=== PATIENT | female | born 1955 | race Caucasian/White ===

== ENCOUNTER 2017-10-04 20:32 | Inpatient (IN) | payer OTHER ==
[~2017-10-04] VITALS: Ht 162.6 cm; Wt 115.6 kg
[2017-10-04] MEDS ORDERED: ACETAMINOPHEN 500 MG TAB PO STA (20:53)
--- NOTE | 2017-10-04 21:15 | DIAGNOSTIC IMAGING REPORT ---
L ANKLE MIN 3 VIEWS ROUTINE CLINICAL HISTORY: Ankle injury trauma. Pain. COMPARISON: None. DISCUSSION: Mildly displaced bimalleolar fracture left ankle. Considerable surrounding soft tissue edema. Mild disruption of ankle mortise. Subtalar joint is intact. IMPRESSION: Mildly displaced bimalleolar fracture left ankle. Considerable soft tissue edema. The above report was generated using voice recognition software. It may contain grammatical, syntax or spelling errors. Electronically signed by: Arpan Waddell M.D. 10/04/2017 9:14 PM Dictated Date/Time: 10/04/2017 9:13 PM
[2017-10-04] MEDS ORDERED: MELO7.5T5 PO (22:05)
[2017-10-04] MEDS ORDERED: DTRSR/2 PO (22:05)
[2017-10-04] MEDS ORDERED: GLC/500 PO (22:05)
[2017-10-04] MEDS ORDERED: MONT1TAB3 PO (22:05)
[2017-10-04] MEDS ORDERED: FEXO1TAB49 PO (22:05)
[2017-10-04] MEDS ORDERED: MULT-240 PO (22:05)
[2017-10-04] MEDS ORDERED: ASPI81TA28 PO (22:05)
[2017-10-04] MEDS ORDERED: NMN10 PO (22:05)
[2017-10-04] MEDS ORDERED: MELA1TAB49 PO (22:05)
[2017-10-04] MEDS ORDERED: FLVHFA110 INH (22:05)
[2017-10-04] MEDS ORDERED: POTA1CAP2 PO (22:05)
[2017-10-04] MEDS ORDERED: GALA12TA PO (22:05)
[2017-10-04] MEDS ORDERED: EFFSR75 PO (22:05)
[2017-10-04] MEDS ORDERED: LEVO112T4 PO (22:05)
[2017-10-04] MEDS ORDERED: PROP10TA7 PO ×2 (22:05)
[2017-10-04] MEDS ORDERED: OXYCODONE HCL IR 5 MG TAB (IMMEDIATE RELEASE) PO STA (22:20)
--- NOTE | 2017-10-04 23:43 | EMERGENCY ROOM VISIT NOTE ---
ED Visit Note First contact with patient: 20:50 CHIEF COMPLAINT: Left ankle injury HISTORY OF PRESENT ILLNESS: This 62-year-old female patient resents the ER via BLS with chief complaint of left ankle injury. The patient states that she slipped on the hallway floor and fell down injuring her left ankle. She was unable to get up. Her son found her and called EMS to bring her to the ER. The patient denies striking her head on the floor or any head injury she denies any loss of consciousness. The patient denies any other injury. REVIEW OF SYSTEMS: 6 system review was performed and was negative unless stated otherwise in history of present illness. PMH: No prior significant ankle injury. Obesity, diabetes, hypertension, COPD , Alzheimer's dementia, kidney stones, cholecystectomy SOCIAL HISTORY: Patient lives with her son. She denies any tobacco or alcohol use. PHYSICAL EXAM: Vital Signs: Were reviewed reviewed Nurse's notes. GENERAL: Morbidly obese 62-year-old white female appears in no acute distress. MENTAL STATUS: Alert, oriented, and cooperative. She answers questions appropriately. LUNGS: Clear to auscultation without wheezes rales or rhonchi. CARDIAC: Regular rate and rhythm without murmur. ABDOMEN: Positive bowel sounds all 4 quadrants. Protuberant unable to evaluate for organomegaly or masses. LOWER LEGS: No cyanosis or pitting edema noted. LEFT ANKLE: The ankle is swollen and tender over the lateral aspect but the skin is intact and there is no ligamentous instability. There is no deformity. The foot and toes are warm and well-perfused. Sensation to pain and light touch is intact. EMERGENCY DEPARTMENT COURSE the patient was evaluated. The patient was given Tylenol 1 g p.o. for pain. X-ray of the left ankle was or interpreted by the radiologist and myself. DIAGNOSTICS:L ANKLE MIN 3 VIEWS ROUTINE CLINICAL HISTORY: Ankle injury trauma. Pain. COMPARISON: None. DISCUSSION: Mildly displaced bimalleolar fracture left ankle. Considerable surrounding soft tissue edema. Mild disruption of ankle mortise. Subtalar joint is intact. IMPRESSION: Mildly displaced bimalleolar fracture left ankle. Considerable soft tissue edema. The above report was generated using voice recognition software. It may contain grammatical, syntax or spelling errors. Electronically signed by: Arpan Waddell M.D. The patient was informed of the findings. The patient was given OxyIR 5 mg p.o. for pain. The patient was placed in Ortho-Glass splint. Post-splinting the patient was neurovascularly intact. The patient stated that she cannot walk with crutches or a walker. Family members also stated that she is even wobbly with a cane. They do not feel that she can go home. She does not have a wheelchair at home. They do not have money to purchase a wheelchair. I contacted Dr. Sierra about the patient. He stated that he would not be doing surgery on her until probably next week. He stated he would see her tomorrow in clinic. He asked to see if there were any other options that I could find for the patient in the interim. I spoke with the medical case manager. The medical case manager spoke with [facility] about the patient. The physician there stated that they would not take the patient until after the surgery. They would not take her preop. I then consulted the hospitalist to see if they would admit the patient and consult Dr. Sierra in the morning. The hospitalist was willing to admit the patient. Please see his note for admission. DIAGNOSIS: Bimalleolar fracture left ankle. Inability to ambulate. TREATMENT PLAN: Admission by hospitalist this evening and consult Dr. Sierra tomorrow. Current/Historical Medications Scheduled Aspirin (Aspirin Ec), 81 MG PO DAILY Fexofenadine Hcl (Esperanza Allergy), 180 MG PO DAILY Fluticasone Propionate (Flovent Hfa), 2 PUFFS INH BID Galantamine Hydrobromide (Razadyne), 12 MG PO BIDM Levothyroxine Sodium (Levothyroxine Sodium), 112 MCG PO DAILY Melatonin (Melatonin), 3 MG PO HS Memantine (Namenda), 10 MG PO BID Metformin Hcl (Glucophage), 500 MG PO DAILY Montelukast Sodium (Singulair), 10 MG PO QPM Multiple Vitamins W/ Minerals (Womens One Daily), 1 TAB PO DAILY Potassium Chloride (Potassium Chloride Er), 20 MEQ PO DAILY Propranolol (Inderal), 20 MG PO QAM Propranolol (Inderal), 10 MG PO QPM Tolterodine Tartrate (Detrol LA), 2 MG PO BID Venlafaxine Hcl (Effexor Extended Rel), 75 MG PO DAILY Scheduled PRN Meloxicam (Mobic), 7.5 MG PO DAILY PRN for Pain Allergies Coded Allergies: No Known Allergies (Unverified , 10/04/17) Vital Signs Date Time Temp Pulse Resp B/P (MAP) Pulse Ox O2 Delivery O2 Flow Rate FiO2 10/04/17 23:11 69 140/69 97 Room Air 10/04/17 20:39 36.7 62 18 162/75 97 Room Air Laboratory Results Test 10/04/17 23:25 10/04/17 23:33 Medications Administered Medications (Trade) Dose Ordered Sig/Ronak Route Start Time Stop Time Status Last Admin Dose Admin Acetaminophen (Tylenol Tab) 1,000 mg NOW STAT PO 10/04/17 20:53 10/04/17 20:55 DC 10/04/17 21:00 1,000 MG Oxycodone HCl (Roxicodone Immediate Rel Tab) 5 mg NOW STAT PO 10/04/17 22:20 10/04/17 22:21 DC 10/04/17 22:20 5 MG Departure Information Patient Instructions [facility]
[2017-10-05] VITALS (8 sets, daily range): BP systolic 124–148; BP diastolic 67–86; PULSE 66–73; TEMP 36.5–37.1; O2SAT 93–99; Ht 162.6 cm; Wt 115.6 kg
[2017-10-05 00:08] LABS: BASO % 0.3 %; BASO ABS # 0.03 K/uL (0-0.2); EOS % 1.1 %; EOS ABS # 0.13 K/uL (0-0.5); HEMATOCRIT 37.6 % (37-47); HEMOGLOBIN 12.9 g/dL (12.0-16.0); IG# 0.03 K/uL (0.00-0.02); LYMPH % 12.3 %; LYMPH ABS # 1.46 K/uL (1.2-3.4); MEAN CELL VOLUME 95.7 fL (80-100); MEAN CORPUSCULAR HEMOGLOBIN 32.8 pg (25-34); MEAN CORPUSCULAR HGB CONC 34.3 g/dl (32-36); MONO % 4.7 %; MONO ABS # 0.56 K/uL (0.11-0.59); NEUT % 81.3 %; NEUT ABS # 9.63 K/uL (1.4-6.5); PLATELET COUNT 208 K/uL (130-400); RED CELL DISTRIBUTION WIDTH CV 13.2 % (11.5-14.5); RED CELL DISTRIBUTION WIDTH SD 46.1 fL (36.4-46.3); WHITE BLOOD COUNT 11.84 K/uL (4.8-10.8)
[2017-10-05 00:23] LABS: ALBUMIN 3.4 gm/dl (3.4-5.0); CALCIUM 8.6 mg/dl (8.5-10.1); CREATININE 0.59 mg/dl (0.60-1.20); POTASSIUM 3.1 mmol/L (3.5-5.1)
[2017-10-05] MEDS ORDERED: POTASSIUM CHLORIDE 10 MEQ TABCR PO STA (00:30)
[2017-10-05 00:34] LABS: TOTAL PROTEIN 7.2 gm/dl (6.4-8.2)
[2017-10-05] MEDS ORDERED: GLUCOSE 10 TABS/TUBE PO PRN (00:45)
[2017-10-05] MEDS ORDERED: DEXTROSE 50% 50 ML SYR IV PRN (00:45)
[2017-10-05] MEDS ORDERED: ALBUT/IPRATROP 3MG/0.5MG NEB 3 ML VIAL INH PRN (00:45)
[2017-10-05] MEDS ORDERED: GLUCOSE 40% GEL 15 GM TUBE PO PRN (00:45)
[2017-10-05] MEDS ORDERED: MoRPHine SULFATE 4 MG/ML 1 ML CARP\\VIAL IV PRN (00:45)
[2017-10-05] MEDS ORDERED: PROCHLORPERAZINE INJ 5 MG in SYRINGE 4 ML IV PRN (00:45)
[2017-10-05] MEDS ORDERED: ACETAMINOPHEN 325 MG TAB PO PRN ×2 (00:45→01:00)
[2017-10-05] MEDS ORDERED: GLUCAGON FOR INJ 1 MG VIAL SQ PRN (00:45)
--- NOTE | 2017-10-05 01:01 | HISTORY & PHYSICAL EXAMINATION ---
DATE OF ADMISSION: 10/04/2017 PRIMARY CARE DOCTOR: Paty Luna PA-C. CHIEF COMPLAINT: Fall, left ankle pain. HISTORY OF PRESENT ILLNESS: History obtained from patient and records. Patient is a reliable historian. Medical history significant for hypertension, DM2 on oral meds, dementia, tremors, asthma as per records. Patient slipped today and fell on the left side. Patient later noted excruciating left ankle pain. Unable to get up. No chest pain, no shortness of breath, no head trauma. Brought to the Emergency Room . Plain x-ray of the left ankle showed mildly displaced bimalleolar fracture of the left ankle. Rehab would not accept patient until the left ankle fixed as per ER provider. MEDICAL HISTORY: As above. Sees [facility] (Dr. Allred) for tremors and dementia. SURGERIES: Cholecystectomy. HOME MEDICATIONS: Include aspirin, Inderal, Detrol, Effexor, metformin, Singulair, Mobic, Namenda, potassium chloride, aspirin, Esperanza, Flovent melatonin. ALLERGIES: No know drug allergies. FAMILY HISTORY: Dementia. PERSONAL AND SOCIAL HISTORY: Nonsmoker, no chronic intake of alcoholic beverages. 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 REVIEW OF SYSTEMS: As per HPI. all 10 systems reviewed. all other ROS negative. FUNCTIONALITY, no unusual chest pain, shortness of breath on exertion, light housework. PHYSICAL EXAMINATION: VITAL SIGNS: Blood pressure was noted to be 140/68, pulse rate 69, respiratory rate 18, temperature 36.7, sats 92 on room air GENERAL: Pleasant, obese, no respiratory distress. SKIN: Normal color. Warm. HEENT: [place] palpebral conjunctivae. No ptosis. Dry mucosa. NECK: Short, nontender. CHEST: Decreased effort. No tenderness. HEART: Regular rate and rhythm, no murmur. ABDOMEN: Some distention, nontender. EXTREMITIES: Immobilizer on the left lower extremity. Minimal LE swelling. NEUROLOGIC: Coherent. No gross focality except for chronic rest tremors on upper extremities LABORATORY DATA: Hemoglobin noted to be 12.9, hematocrit 7.6, white cell count 11, platelets 208. Sodium 144 potassium 3.1 chloride 106 CO2 28 BUN 12 creatinine 0.5 glucose 152 magnesium 1.5 AST 68 ALT 71 Chest x-ray as per my interpretation, atelectasis, cardiomegaly. EKG as per my interpretation rate 70, NSR, LAD, LAFB, incomplete RBBB ASSESSMENT: 1. Traumatic left ankle fracture secondary to mechanical fall. 2. Hypertension, stable. 3. DM type 2 on oral meds, unknown baseline control. 4. Hypokalemia, hypomagnesemia 5. Dementia. The patient mentating well. 6. Asthma, stable. 7. Transaminitis, possible fatty liver disease PLAN: [facility] Orthopedics consult RE left ankle fracture (ER provider already in touch with Dr. Sierra.) Will get in touch with Dr. Sierra regarding schedule for surgery during confinement. No medical contraindication to contemplated orthopedic procedure. Replace electrolytes Follow LFTs ISS BG goal 140-180. Check hemoglobin A1c. Social service RE discharge planning DVT prophylaxis, SCDs RE possible surgery; recommend pharmacologic integration with Lovenox 40 mg SQ once bleeding risk is deemed to be minimal and negligible pending Orthopedics evaluation. DNR. Patient requests her son be updated of plan of care. Mr. Trav Hudson at [phone]. ADDENDUM : Case d/w Dr. Sierra. Possible surgery today. MTDD
[2017-10-05 01:25] LABS: PTT PATIENT 23.1 SECONDS (21.0-31.0)
[2017-10-05] MEDS ORDERED: NURSING VERBAL MED ORDER ONE ×3 (02:15→21:15)
[2017-10-05] MEDS ORDERED: INSULIN ASPART 100 UNITS/ML 3 ML PEN SC ONE (02:45)
[2017-10-05] MEDS: TRAMADOL HCL 50 MG TAB PO PRN ×3 (02:51→21:48)
[2017-10-05] MEDS: SODIUM CHLOR 0.45% + 20MEQ KCL 1,000 ML IV SCH (03:03)
[2017-10-05] MEDS: MAGNESIUM SULFATE 1GM / D5W 1 GM in PREMIXED IN D5W 100 ML IV SCH ×2 (03:03→04:40)
[2017-10-05 05:54] LABS: ALBUMIN 3.4 gm/dl (3.4-5.0); CALCIUM 8.5 mg/dl (8.5-10.1); CREATININE 0.54 mg/dl (0.60-1.20); POTASSIUM 3.2 mmol/L (3.5-5.1)
[2017-10-05 05:57] LABS: TOTAL PROTEIN 7.1 gm/dl (6.4-8.2)
[2017-10-05] MEDS: INSULIN ASPART 100 UNITS/ML 3 ML PEN SC SCH ×4 (06:20→21:00)
[2017-10-05] MEDS: LEVOTHYROXINE 112 MCG TAB PO SCH (06:29)
[2017-10-05 06:48] LABS: HEMOGLOBIN A1C 6.5 % (4.5-5.6)
[2017-10-05] MEDS ORDERED: POTASSIUM CHLORIDE 20 MEQ TABCR PO ONE (06:55)
--- NOTE | 2017-10-05 06:57 | DIAGNOSTIC IMAGING REPORT ---
CHEST ONE VIEW PORTABLE CLINICAL HISTORY: Preoperative evaluation. History of COPD. COMPARISON STUDY: No previous studies for comparison. FINDINGS: Lung volumes are normal. No consolidation is identified and there is no evidence for pulmonary edema. No pneumothorax or pleural effusion is noted. Moderate cardiomegaly is noted. Mediastinal contours are otherwise unremarkable. Patient is mildly rotated. IMPRESSION: 1. No acute cardiopulmonary findings. 2. Moderate cardiomegaly. Electronically signed by: Nilson Sanchez M.D. 10/05/2017 6:56 AM Dictated Date/Time: 10/05/2017 6:55 AM
[2017-10-05] MEDS ORDERED: INSULIN GLARGINE SOLOSTAR 100 UNITS/ML 3 ML PEN SC ONE (07:00)
[2017-10-05] MEDS ORDERED: PNEUMOCOCCAL ADMINISTRATION CHARGE ONE (07:00)
[2017-10-05] MEDS ORDERED: PNEUMOCOCCAL POLYSACCHARIDES 25 MCG/0.5 ML VIAL/SYR IM. ONE (07:30)
[2017-10-05] MEDS: GALANTAMINE HYDROBROMIDE 4 MG TAB PO SCH ×2 (08:28→18:26)
[2017-10-05] MEDS: CEROVITE ADV FORMULA TAB PO SCH (08:29)
[2017-10-05] MEDS: PROPRANOLOL HCL 10 MG TAB PO SCH ×2 (08:29→21:09)
[2017-10-05] MEDS: MEMANTINE 10 MG TAB PO SCH ×3 (08:29→21:10)
[2017-10-05] MEDS: TOLTERODINE TARTRATE LA 2 MG CAPCR PO SCH ×2 (08:29→21:09)
[2017-10-05] MEDS: FLUTICASONE HFA 110MCG INHALER INH SCH ×2 (08:30→21:09)
[2017-10-05] MEDS: VENLAFAXINE HCL XR 75 MG CAPXR PO SCH (08:30)
[2017-10-05] MEDS: KETOROLAC TROMETHAMINE 30 MG/ML VIAL IV PRN (11:25)
[2017-10-05] MEDS ORDERED: FENTANYL CITRATE INJ 50 MCG/1 ML 2 ML VIAL ONE (11:55)
[2017-10-05] MEDS ORDERED: MIDAZOLAM HCL 1 MG/ML 2ML VIAL ONE (11:55)
[2017-10-05] MEDS ORDERED: DEXAMETHASONE SOD INJ 4 MG/ML VIAL ONE (11:57)
[2017-10-05] MEDS ORDERED: PHENYLEPHRINE 100MCG/ML 5ML SYR ONE (11:57)
[2017-10-05] MEDS ORDERED: PROPOFOL IV EMULSION 10 MG/ML 20 ML VIAL IV ONE (11:57)
[2017-10-05] MEDS ORDERED: ONDANSETRON INJ 2 MG/ML 2 ML VIAL ONE (11:57)
[2017-10-05] MEDS ORDERED: EpHEDrine SULFATE 50MG/5ML SYR ONE (11:57)
[2017-10-05] MEDS ORDERED: LIDOCAINE HCL 2% 2 ML VIAL (20MG/ML) ONE (11:57)
--- NOTE | 2017-10-05 12:17 | History & Physical Bridge Note ---
H&P Re-Evaluation Bridge Note: I have examined the patient, reviewed the History & Physical and in the interval since the performance of the History & Physical I have noted the following changes of clinical significance: No changes noted
[2017-10-05] MEDS ORDERED: ROPIVACAINE 0.5% 5 MG/ML 30 ML VIAL ONE (12:22)
[2017-10-05] MEDS ORDERED: EpHEDrine SULFATE INJ 50 MG/ML AMP IV PRN (12:30)
[2017-10-05] MEDS ORDERED: ONDANSETRON INJ 2 MG/ML 2 ML VIAL IV PRN (12:30)
[2017-10-05] MEDS ORDERED: ATROPINE SULFATE 0.1 MG/ML 5ML SYR IV PRN (12:30)
[2017-10-05] MEDS ORDERED: FENTANYL CITRATE INJ 50 MCG/1 ML 2 ML VIAL IV PRN (12:30)
[2017-10-05] MEDS ORDERED: BUPIVACAINE/EPINEPHRINE 0.5% MPF 1:200,000 30 ML VIAL ONE (12:41)
[2017-10-05] MEDS ORDERED: CEFAZOLIN SOD 1 GM VIAL ONE (13:44)
--- NOTE | 2017-10-05 14:23 | [facility] Post Operative Brief Note ---
Immediate Operative Summary Operative Date Oct 05, 2017. Pre-Operative Diagnosis Left Ankle Bimalleolar Fracture Post-Operative Diagnosis Left Ankle Bimalleolar Fracture Procedure(s) Performed Open Reduction Internal Fixation Left Bimalleolar Ankle Fracture Surgeon Dr. Mccollum [employer] Surgeon(s) SUSANNA Stevenson Estimated Blood Loss 10 ml Findings Consistent with Post-Op Diagnosis Specimens none per surgeon Anesthesia Type General Regional Complication(s) none Disposition Accompanied Pt To Recover: no Disposition: Recovery Room / PACU
--- NOTE | 2017-10-05 14:45 | OPERATIVE REPORT ---
DATE OF OPERATION: 10/05/2017 PREOPERATIVE DIAGNOSIS: Comminuted bimalleolar ankle fracture of the left. POSTOPERATIVE DIAGNOSIS: Comminuted bimalleolar ankle fracture of the left. PROCEDURE: Open reduction internal fixation, bimalleolar ankle fracture of the left. SURGEON: Dr. Mccollum. CLAIMS ACCOUNT SPECIALIST: Shyam Wilson PA-C. Mr. Wilson was essential through all portions of the case including positioning, prepping, draping, hand frame surgical elastic knitter, wound closure and dressing application. ANESTHESIA: Spinal. COMPLICATIONS: None. OPERATION AND FINDINGS: The patient's left ankle was prepped and draped in usual sterile manner. Limb was exsanguinated with an Esmarch bandage, tourniquet inflated to 350 mmHg. Longitudinal incision was made over the fibula distally, subcutaneous tissue was sharply dissected and electrocautery was used for hemostasis. Sigmoidal comminution was noted, but enough distal fragment for 3 locking holes was available and then decision was made to bridge the fracture with a small fragment locking plate. The plate was bent to fit the curvature of the fibula and was fixed to the lateral aspect of the fibula using a single cortical screw in the proximal fragment. Check x-rays revealed appropriate position and rotation of the plate and fixation was carried out with additional 3 distal locking screws and proximal locking screws. This anatomically reduced the fracture and held the fibula to length. Next, attention was turned medially where a curvilinear incision was made over the medial malleolus. Subcutaneous tissue was bluntly dissected. The saphenovenous vein was identified and protected. The medial malleolar fragment was relatively large. Hematoma was removed from the fracture site and a subperiosteal dissection was carried out to remove the periosteum from the fracture edge and reduction was obtained using 2 talc clips. This was fixed provisionally using 2 K wires. Check x-rays revealed anatomic reduction of the fracture and the fracture was fixed using two 36 mm cancellous cannulated screws with washers. Final x-rays were obtained, which showed good screw length and anatomic fracture fixation. Wounds were irrigated and closed using 2-0 Dexon and nylon. Sterile dressing of Adaptic, 4 x 4's, sterile Webril post-plaster splint and an Gino wrap was applied. The patient tolerated the procedure well. I attest to the content of the Intraoperative Record and any orders documented therein. Any exception s are noted below.
--- NOTE | 2017-10-05 14:53 | DIAGNOSTIC IMAGING REPORT ---
L ANKLE 2 VIEWS HISTORY: 62 years-old Female LT ORIF BIMALLEOLAR FX status post ORIF of the left ankle COMPARISON: Left ankle radiographs 10/04/2017 TECHNIQUE: 2 spot fluoroscopic images of the left ankle were obtained utilizing 16.3 seconds fluoroscopy time FINDINGS: There is improved alignment of the medial and lateral malleoli fractures status post ORIF. There has been interval placement of a lateral plate and screw fixation of the distal fibula which demonstrates improved alignment. 2 cannulated screws fixate the medial malleolar fracture which also demonstrates improved alignment. Persistent soft tissue swelling is noted about the ankle. Large enthesophytes are seen about the calcaneus. IMPRESSION: Improved alignment status post ORIF of the bimalleolar fracture. The above report was generated using voice recognition software. It may contain grammatical, syntax or spelling errors. Electronically signed by: Iker Rockwell M.D. 10/05/2017 2:52 PM Dictated Date/Time: 10/05/2017 2:51 PM
--- NOTE | 2017-10-05 15:14 | Progress Note ---
Internal Med Progress Note Date of Service: Oct 05, 2017. Provider Documentation: SUBJECTIVE: Seen and examined at bedside after Post OP LLE pain is controlled Denies chest pain, cough, SOB No complaints Family at bedside OBJECTIVE: Vital Signs-as noted below Physical Exam: General Appearance:Obese, no apparent distress Head: normocephalic, Atraumatic Eyes: normal inspection, EOMI, PERRL Neck: supple, Trachea midline Respiratory/Chest: Normal breath sounds, CTA Cardiovascular: S1, S2, No murmur Abdomen/GI:Soft, Non tender, Bowel sounds present Extremities/Musculoskelatal:normal inspection, no edema, LLE in bandage Neurologic/Psych:grossly no focal neurological deficits Skin: normal color, warm Lab data as noted below. ASSESSMENT & PLAN: Traumatic Left ankle fracture S/P mechanical fall Ankle X ray:Mildly displaced bimalleolar fracture left ankle S/P ORIF of Bimalleolar ankle fracture POD # 0 Appreciate Orthopedics help Pain control PT/OT bowel regimen Monitor Hb for post op anemia SCDs for anticoagulation for now Hypertension stable continue home meds DM II: A1C:6.5 Hold PO meds Continue ISS, lantus Hypokalemia, hypomagnesemia: replace and monitor Dementia: Stable H/O Asthma No signs of exacerbation stable Transaminitis: possible fatty liver disease Denies abd pain monitor LFTs Check ABD USD DVT Px: SCDs for nor Re: post OP Code Status DNR Disposition: May need placement PT/OT director agricultural services consulted Patient requests her son be updated of plan of care. Mr. Trav Hudson at [phone]. Vital Signs: Date Time Temp Pulse Resp B/P (MAP) Pulse Ox O2 Delivery O2 Flow Rate FiO2 10/05/17 16:52 36.5 66 18 139/86 (103) 98 Nasal Cannula 2.0 10/05/17 16:28 36.5 68 18 139/83 (101) 98 Nasal Cannula 2.0 10/05/17 15:45 36.3 67 18 157/79 97 Nasal Cannula 2 10/05/17 15:30 70 14 148/69 99 Nasal Cannula 4 10/05/17 15:20 72 16 146/99 98 Nasal Cannula 4 10/05/17 15:10 67 14 144/92 100 Oxymask 10 10/05/17 15:01 36.4 74 12 158/88 100 Oxymask 10 10/05/17 12:09 37 71 20 167/82 (110) 95 Room Air 10/05/17 07:30 Room Air 10/05/17 07:29 36.8 73 16 148/79 (102) 95 Room Air 10/05/17 01:30 36.7 66 16 128/67 10/05/17 01:30 Room Air 10/05/17 01:26 71 126/83 93 10/04/17 23:11 69 140/69 97 Room Air 10/04/17 20:39 36.7 62 18 162/75 97 Room Air Lab Results: Results Past 24 Hours Test 10/04/17 23:50 10/05/17 00:59 10/05/17 05:06 10/05/17 06:15 Range/Units White Blood Count 11.84 4.8-10.8 K/uL Red Blood Count 3.93 4.2-5.4 M/uL Hemoglobin 12.9 12.0-16.0 g/dL Hematocrit 37.6 37-47 % Mean Corpuscular Volume 95.7 80-100 fL Mean Corpuscular Hemoglobin 32.8 25-34 pg Mean Corpuscular Hemoglobin Concent 34.3 32-36 g/dl Platelet Count 208 130-400 K/uL Mean Platelet Volume 10.0 7.4-10.4 fL Neutrophils (%) (Auto) 81.3 % Lymphocytes (%) (Auto) 12.3 % Monocytes (%) (Auto) 4.7 % Eosinophils (%) (Auto) 1.1 % Basophils (%) (Auto) 0.3 % Neutrophils # (Auto) 9.63 1.4-6.5 K/uL Lymphocytes # (Auto) 1.46 1.2-3.4 K/uL Monocytes # (Auto) 0.56 0.11-0.59 K/uL Eosinophils # (Auto) 0.13 0-0.5 K/uL Basophils # (Auto) 0.03 0-0.2 K/uL RDW Standard Deviation 46.1 36.4-46.3 fL RDW Coefficient of Variation 13.2 11.5-14.5 % Immature Granulocyte % (Auto) 0.3 % Immature Granulocyte # (Auto) 0.03 0.00-0.02 K/uL Sodium Level 144 141 136-145 mmol/L Potassium Level 3.1 3.2 3.5-5.1 mmol/L Chloride Level 106 105 98-107 mmol/L Carbon Dioxide Level 28 27 21-32 mmol/L Anion Gap 10.0 9.0 3-11 mmol/L Blood Urea Nitrogen 12 12 7-18 mg/dl Creatinine 0.59 0.54 0.60-1.20 mg/dl Est Creatinine Clear Calc Drug Dose 125.9 137.5 ml/min Estimated GFR () 113.9 117.2 Estimated GFR (Non- 98.2 101.1 BUN/Creatinine Ratio 19.6 22.8 10-20 Random Glucose 152 183 70-99 mg/dl Estimated Average Glucose 140 mg/dl Hemoglobin A1c 6.5 4.5-5.6 % Calcium Level 8.6 8.5 8.5-10.1 mg/dl Magnesium Level 1.5 2.1 1.8-2.4 mg/dl Total Bilirubin 1.2 1.5 0.2-1 mg/dl Aspartate Amino Transf (AST/SGOT) 68 61 15-37 U/L Alanine Aminotransferase (ALT/SGPT) 79 79 12-78 U/L Alkaline Phosphatase 87 88 45-117 U/L Total Protein 7.2 7.1 6.4-8.2 gm/dl Albumin 3.4 3.4 3.4-5.0 gm/dl Globulin 3.8 3.7 2.5-4.0 gm/dl Albumin/Globulin Ratio 0.9 0.9 0.9-2 Thyroid Stimulating Hormone (TSH) 0.881 0.300-4.500 uIu/ml Activated Partial Thromboplast Time 23.1 21.0-31.0 SECONDS Partial Thromboplastin Ratio 0.9 Bedside Glucose 189 70-90 mg/dl Test 10/05/17 12:21 10/05/17 15:09 Range/Units Bedside Glucose 140 128 70-90 mg/dl
--- NOTE | 2017-10-05 15:17 | CONSULTATION REPORT ---
DATE OF CONSULTATION: 10/05/2017 REASON FOR CONSULT: Left ankle fracture. HISTORY OF PRESENT ILLNESS: The patient is a 62-year-old white female who lives at home with her son who states that she was in the bathroom and she thought she had had one of her socks on to help with traction while walking in her home and she ended up slipping and falling at home. She denies any loss of consciousness, no chest pain, no lightheadedness, no shortness of breath prior to or after the fall. When she tried to get up and ambulate, she had pain in her left ankle and was unable to. She was brought to the Emergency Room and seen by the staff. X-rays were taken and was found that she had a bimalleolar ankle fracture of the left ankle. [facility] been consulted to take care of her left ankle. PAST MEDICAL HISTORY: Obesity, diabetes mellitus type 2, hypertension, COPD, Alzheimer dementia, renal calculi in the past, hypothyroidism. PAST SURGICAL HISTORY: Cholecystectomy. FAMILY HISTORY: Dementia. SOCIAL HISTORY: The patient lives at home with her son. She is a nonsmoker, does not use alcohol and works part-time. MEDICATIONS: Aspirin 81 mg p.o. daily, Esperanza 180 mg p.o. daily, Flovent 2 puffs inhaled b.i.d., Razadyne 12 mg p.o. b.i.d., levothyroxine 112 mcg p.o. daily, melatonin 3 mg p.o. at bedtime, Meloxicam 7.5 mg p.o. daily, Namenda 10 mg p.o. b.i.d., metformin 500 mg p.o. daily, Singulair 10 mg p.o. q.p.m., multivitamin 1 tab p.o. daily, potassium chloride 20 mEq p.o. daily, propranolol 20 mg p.o. q.a.m. and 10 mg p.o. q.p.m., Detrol-LA 2 mg p.o. b.i.d., Effexor extended release 75 mg p.o. daily. ALLERGIES: NKDA. REVIEW OF SYSTEMS: As per admitting history and physical. PHYSICAL EXAMINATION: GENERAL: The patient is an obese 62-year-old white female who appears younger than her stated age. She is awake and alert and oriented to person and place. She has some mild left ankle pain at this time, but states that it has gotten better since getting some pain medication. EXTREMITIES: On examination of her left ankle she has a posterior splint applied. Toes are pink and warm and she moves the toes quite well. She states that she had a fair amount of numbness in her toes last night; however, the feeling has slowly returned and she has minimal to no numbness or tingling in the toes at this time. She has no pain in the left knee. She does have a bruise just superior to the left patella. She has no pain in the left hip. Right lower extremity is essentially benign and is nontender on palpation and range of motion is essentially within normal limits with hip, knee and ankle. Upper extremities are benign at this time and range of motion was within normal limits. She denies neck pain on palpation and has good range of motion. She denies thoracic or lumbar pain at this time. There is no gross motor or sensory deficit seen at this time other than her left ankle due to fracture. Full range of motion. ASSESSMENT: Left bimalleolar ankle fracture. PLAN: The patient will be taken to surgery by Dr. Mccollum today for ORIF of left bimalleolar ankle fracture.
--- NOTE | 2017-10-05 15:17 | Anesthesiology Progress Note ---
Anesthesia Post Op Note Date & Time Oct 05, 2017 at 15:16 Vital Signs Pain Intensity: 0 Vital Signs Past 12 Hours Date Time Temp Pulse Resp B/P (MAP) Pulse Ox O2 Delivery O2 Flow Rate FiO2 10/05/17 15:10 67 14 144/92 100 Oxymask 10 10/05/17 15:01 36.4 74 12 158/88 100 Oxymask 10 10/05/17 12:09 37 71 20 167/82 (110) 95 Room Air 10/05/17 07:30 Room Air 10/05/17 07:29 36.8 73 16 148/79 (102) 95 Room Air Notes Mental Status: alert / awake / arousable, participated in evaluation Pt Amnestic to Procedure: Yes Nausea / Vomiting: adequately controlled Pain: adequately controlled Airway Patency, RR, SpO2: stable & adequate BP & HR: stable & adequate Hydration State: stable & adequate Anesthetic Complications: no major complications apparent
--- NOTE | 2017-10-05 15:40 | DIAGNOSTIC IMAGING REPORT ---
L ANKLE MIN 3 VIEWS ROUTINE HISTORY: 62 years-old Female post-op ORIF status post ORIF of the left ankle. COMPARISON: Left ankle radiographs of same day 1:53 PM and also to 2017 TECHNIQUE: 3 views of the left ankle FINDINGS: Fine bony detail is obscured secondary to overlying cast material. ORIF changes with lateral plate and screw fusion of an acute distal fibular fracture is noted with satisfactory alignment. There are 2 cannulated screws fixating an acute medial malleolar fracture which also demonstrates satisfactory alignment. The hardware appears intact. Enthesophytes noted about the calcaneus. Moderate dorsal foot soft tissue swelling. IMPRESSION: Satisfactory alignment status post ORIF of the acute medial malleolar and distal fibular fractures. The above report was generated using voice recognition software. It may contain grammatical, syntax or spelling errors. Electronically signed by: Iker Rockwell M.D. 10/05/2017 3:39 PM Dictated Date/Time: 10/05/2017 3:37 PM
[2017-10-05] MEDS: MONTELUKAST SOD 10 MG TAB PO SCH (21:10)
[2017-10-05] MEDS: DOCUSATE SODIUM 100 MG CAP PO SCH (21:13)
[2017-10-05] MEDS: CEFAZOLIN IV 2,000 MG in SYRINGE 0 ML IV SCH (21:45)
[2017-10-05] MEDS ORDERED: CEFAZOLIN SOD 2000MG/15 ML IV PUSH IV SCH (22:00)
[2017-10-06] VITALS (8 sets, daily range): BP systolic 112–142; BP diastolic 69–88; PULSE 65–73; TEMP 36.7–37; O2SAT 91–95
[2017-10-06] MEDS: SODIUM CHLOR 0.45% + 20MEQ KCL 1,000 ML IV SCH (03:10)
[2017-10-06] MEDS: KETOROLAC TROMETHAMINE 30 MG/ML VIAL IV PRN (03:12)
[2017-10-06] MEDS: CEFAZOLIN IV 2,000 MG in SYRINGE 0 ML IV SCH (05:42)
[2017-10-06] MEDS: LEVOTHYROXINE 112 MCG TAB PO SCH (05:42)
--- NOTE | 2017-10-06 07:30 | DIAGNOSTIC IMAGING REPORT ---
BILIARY ABDOMEN LIMITED CLINICAL HISTORY: 62 years-old Female presenting with Elevated LFTs, history of cholecystectomy. TECHNIQUE: Real-time grayscale and limited color Doppler ultrasound imaging of the abdomen limited to the right upper quadrant was performed. COMPARISON: None. FINDINGS: Pancreas: Visualized portions of the pancreatic head and body normal. Liver: Moderately hyperechogenic parenchyma with partial obscuration of the right hemidiaphragm, likely indicating moderate steatosis. The liver measures 26.1 cm in maximal sagittal dimension. No sonographic evidence of hepatic mass. Main portal vein patent with normal directional flow. Biliary: Diffuse intrahepatic biliary ductal dilatation. Common bile duct measures up to 8 mm in diameter. Gallbladder: Surgically absent. Right kidney: Normal in appearance. No hydronephrosis. Ascites: None. IMPRESSION: 1. Hepatic steatosis and hepatomegaly. Correlate with liver function tests to exclude steatohepatitis as a cause for abdominal pain. 2. Dilated intrahepatic and extrahepatic biliary ducts may represent a reservoir effect in the post cholecystectomy state. Correlate with serum lab abnormalities for biliary obstruction. Electronically signed by: Sen Moreno M.D. 10/06/2017 7:29 AM Dictated Date/Time: 10/06/2017 7:03 AM
[2017-10-06 07:46] LABS: HEMATOCRIT 35.3 % (37-47); HEMOGLOBIN 11.6 g/dL (12.0-16.0); MEAN CELL VOLUME 98.9 fL (80-100); MEAN CORPUSCULAR HEMOGLOBIN 32.5 pg (25-34); MEAN CORPUSCULAR HGB CONC 32.9 g/dl (32-36); MEAN PLATELET VOLUME 10.1 fL (7.4-10.4); PLATELET COUNT 179 K/uL (130-400); RED CELL DISTRIBUTION WIDTH CV 13.4 % (11.5-14.5); RED CELL DISTRIBUTION WIDTH SD 48.5 fL (36.4-46.3); WHITE BLOOD COUNT 7.65 K/uL (4.8-10.8)
--- NOTE | 2017-10-06 07:56 | Anesthesiology Progress Note ---
Anesthesia Post Op Note Date & Time Oct 06, 2017 at 07:56 Vital Signs Pain Intensity: 7.0 Vital Signs Past 12 Hours Date Time Temp Pulse Resp B/P (MAP) Pulse Ox O2 Delivery O2 Flow Rate FiO2 10/06/17 07:44 36.8 67 18 142/88 (106) 93 Room Air 10/06/17 03:00 37.0 71 16 128/81 (97) 91 Room Air 10/05/17 23:15 Room Air 10/05/17 22:09 36.9 69 18 125/75 (92) 93 Room Air Notes Mental Status: alert / awake / arousable Pt Amnestic to Procedure: Yes Nausea / Vomiting: adequately controlled Pain: improving with treatment Airway Patency, RR, SpO2: stable & adequate BP & HR: stable & adequate Hydration State: stable & adequate Anesthetic Complications: no major complications apparent
--- NOTE | 2017-10-06 08:09 | Orthopedic Progress Note ---
Orthopedic Progress Note Date of Service Oct 06, 2017. Subjective Post OP Day: 1 Reports: feeling well Objective N/V intact, splint C/D/I, toes mobile Date Time Temp Pulse Resp B/P (MAP) Pulse Ox O2 Delivery O2 Flow Rate FiO2 10/06/17 07:44 36.8 67 18 142/88 (106) 93 Room Air 10/06/17 03:00 37.0 71 16 128/81 (97) 91 Room Air 10/05/17 23:15 Room Air 10/05/17 22:09 36.9 69 18 125/75 (92) 93 Room Air 10/05/17 18:56 36.6 69 18 124/82 (96) 99 Nasal Cannula 2.0 10/05/17 18:00 37.1 73 18 141/84 (103) 98 Nasal Cannula 2.0 10/05/17 16:52 36.5 66 18 139/86 (103) 98 Nasal Cannula 2.0 10/05/17 16:28 36.5 68 18 139/83 (101) 98 Nasal Cannula 2.0 10/05/17 15:55 Nasal Cannula 2.0 10/05/17 15:55 36.6 68 18 143/83 (103) 99 Nasal Cannula 2.0 10/05/17 15:55 99 Nasal Cannula 2.0 10/05/17 15:45 36.3 67 18 157/79 97 Nasal Cannula 2 10/05/17 15:30 70 14 148/69 99 Nasal Cannula 4 10/05/17 15:20 72 16 146/99 98 Nasal Cannula 4 10/05/17 15:10 67 14 144/92 100 Oxymask 10 10/05/17 15:01 36.4 74 12 158/88 100 Oxymask 10 10/05/17 12:09 37 71 20 167/82 (110) 95 Room Air Laboratory Results 24 Hours: Test 10/06/17 07:05 Hematocrit 35.3 % Hemoglobin 11.6 g/dL Assessment & Plan Assessment: 62 yo female stable POD #1 s/p ORIF left ankle Plan: 1. Med management 2. DVT prophylaxis- ASA- SCDs 3. PT/OT 4. D/C planning- pt likely to require rehab/SNF
--- NOTE | 2017-10-06 08:11 | Consultant Recommendations ---
Resident Care Coordinator Recommendations Date of Service Oct 06, 2017. Resident Care Coordinator Recommendations Nonweightbearing right lower extremity with walker. Maintain splint until follow-up with MD. Keep splint clean and dry. Frequent ice and elevation. Follow-up with Dr Mccollum ~ 10-14 days, [phone] for appt.
[2017-10-06 08:17] LABS: CALCIUM 7.8 mg/dl (8.5-10.1); CREATININE 0.54 mg/dl (0.60-1.20); POTASSIUM 3.6 mmol/L (3.5-5.1)
[2017-10-06 08:19] LABS: TOTAL PROTEIN 6.4 gm/dl (6.4-8.2)
[2017-10-06] MEDS: CEROVITE ADV FORMULA TAB PO SCH (08:38)
[2017-10-06] MEDS: VENLAFAXINE HCL XR 75 MG CAPXR PO SCH (08:38)
[2017-10-06] MEDS: GALANTAMINE HYDROBROMIDE 4 MG TAB PO SCH ×2 (08:38→18:28)
[2017-10-06] MEDS: MEMANTINE 10 MG TAB PO SCH ×2 (08:38→20:20)
[2017-10-06] MEDS: PROPRANOLOL HCL 10 MG TAB PO SCH ×2 (08:39→20:21)
[2017-10-06] MEDS: TOLTERODINE TARTRATE LA 2 MG CAPCR PO SCH ×2 (08:39→20:20)
[2017-10-06] MEDS: FLUTICASONE HFA 110MCG INHALER INH SCH ×2 (08:40→20:19)
[2017-10-06] MEDS ORDERED: INSULIN GLARGINE SOLOSTAR 100 UNITS/ML 3 ML PEN SC SCH (09:00)
[2017-10-06] MEDS: DOCUSATE SODIUM 100 MG CAP PO SCH ×2 (09:23→20:20)
[2017-10-06] MEDS: TRAMADOL HCL 50 MG TAB PO PRN ×3 (09:23→23:48)
[2017-10-06] MEDS: INSULIN GLARGINE SOLOSTAR 100 UNITS/ML 3 ML PEN SC SCH (09:28)
[2017-10-06] MEDS: INSULIN ASPART 100 UNITS/ML 3 ML PEN SC SCH ×4 (09:28→21:00)
--- NOTE | 2017-10-06 12:15 | Progress Note ---
Internal Med Progress Note Date of Service: Oct 06, 2017. Provider Documentation: SUBJECTIVE: Seen and examined at bedside States LLE pain is controlled with medications Denies chest pain, cough, SOB Passing gas, NO BM yet No other complaints OBJECTIVE: Vital Signs-as noted below Physical Exam: General Appearance:Obese, no apparent distress Head: normocephalic, Atraumatic Eyes: normal inspection, EOMI, PERRL Neck: supple, Trachea midline Respiratory/Chest: Normal breath sounds, CTA Cardiovascular: S1, S2, No murmur Abdomen/GI:Soft, Non tender, Bowel sounds present Extremities/Musculoskelatal:normal inspection, no edema, LLE in bandage Neurologic/Psych:grossly no focal neurological deficits Skin: normal color, warm Lab data as noted below. ASSESSMENT & PLAN: Traumatic Left ankle fracture S/P mechanical fall Ankle X ray:Mildly displaced bimalleolar fracture left ankle S/P ORIF of Bimalleolar ankle fracture POD # 1 Appreciate Orthopedics help Pain control PT/OT Continue bowel regimen Aspirin and SCDs for anticoagulation Would like to start on Lovenox SQ for DVT Px if ok with Ortho Consulted Podiatry for Toe nails Hypertension stable continue home meds DM II: A1C:6.5 Hold PO meds Continue ISS, lantus Hypokalemia, hypomagnesemia: replace and monitor Dementia: Stable H/O Asthma No signs of exacerbation stable Chronic Transaminitis: Denies abd pain ABD USD: Suggestive of Hepatic steatosis and hepatomegaly. Dilated intrahepatic and extrahepatic biliary ducts may represent a reservoir effect in the post cholecystectomy state. DVT Px: On ASA and SCDs for now Re: post OP Code Status DNR Disposition: May need placement PT/OT office services clerk consulted Patient requests her son be updated of plan of care. Mr. Trav Hudson at [phone]. Vital Signs: Date Time Temp Pulse Resp B/P (MAP) Pulse Ox O2 Delivery O2 Flow Rate FiO2 10/06/17 12:04 36.8 71 18 125/83 (97) 95 Room Air 10/06/17 09:14 93 Room Air 10/06/17 08:00 Room Air 10/06/17 07:44 36.8 67 18 142/88 (106) 93 Room Air 10/06/17 03:00 37.0 71 16 128/81 (97) 91 Room Air 10/05/17 23:15 Room Air 10/05/17 22:09 36.9 69 18 125/75 (92) 93 Room Air 10/05/17 18:56 36.6 69 18 124/82 (96) 99 Nasal Cannula 2.0 10/05/17 18:00 37.1 73 18 141/84 (103) 98 Nasal Cannula 2.0 10/05/17 16:52 36.5 66 18 139/86 (103) 98 Nasal Cannula 2.0 10/05/17 16:28 36.5 68 18 139/83 (101) 98 Nasal Cannula 2.0 10/05/17 15:55 Nasal Cannula 2.0 10/05/17 15:55 36.6 68 18 143/83 (103) 99 Nasal Cannula 2.0 10/05/17 15:55 99 Nasal Cannula 2.0 10/05/17 15:45 36.3 67 18 157/79 97 Nasal Cannula 2 10/05/17 15:30 70 14 148/69 99 Nasal Cannula 4 10/05/17 15:20 72 16 146/99 98 Nasal Cannula 4 10/05/17 15:10 67 14 144/92 100 Oxymask 10 10/05/17 15:01 36.4 74 12 158/88 100 Oxymask 10 Lab Results: Results Past 24 Hours Test 10/05/17 12:21 10/05/17 15:09 10/05/17 16:51 10/05/17 20:40 Range/Units Bedside Glucose 140 128 124 120 70-90 mg/dl Test 10/06/17 07:05 10/06/17 08:05 Range/Units White Blood Count 7.65 4.8-10.8 K/uL Red Blood Count 3.57 4.2-5.4 M/uL Hemoglobin 11.6 12.0-16.0 g/dL Hematocrit 35.3 37-47 % Mean Corpuscular Volume 98.9 80-100 fL Mean Corpuscular Hemoglobin 32.5 25-34 pg Mean Corpuscular Hemoglobin Concent 32.9 32-36 g/dl RDW Standard Deviation 48.5 36.4-46.3 fL RDW Coefficient of Variation 13.4 11.5-14.5 % Platelet Count 179 130-400 K/uL Mean Platelet Volume 10.1 7.4-10.4 fL Sodium Level 140 136-145 mmol/L Potassium Level 3.6 3.5-5.1 mmol/L Chloride Level 105 98-107 mmol/L Carbon Dioxide Level 28 21-32 mmol/L Anion Gap 7.0 3-11 mmol/L Blood Urea Nitrogen 12 7-18 mg/dl Creatinine 0.54 0.60-1.20 mg/dl Est Creatinine Clear Calc Drug Dose 134.9 ml/min Estimated GFR () 117.2 Estimated GFR (Non- 101.1 BUN/Creatinine Ratio 21.6 10-20 Random Glucose 125 70-99 mg/dl Calcium Level 7.8 8.5-10.1 mg/dl Magnesium Level 1.9 1.8-2.4 mg/dl Total Bilirubin 1.9 0.2-1 mg/dl Direct Bilirubin 0.6 0-0.2 mg/dl Aspartate Amino Transf (AST/SGOT) 68 15-37 U/L Alanine Aminotransferase (ALT/SGPT) 75 12-78 U/L Alkaline Phosphatase 91 45-117 U/L Total Protein 6.4 6.4-8.2 gm/dl Albumin 3.0 3.4-5.0 gm/dl Bedside Glucose 138 70-90 mg/dl
[2017-10-06] MEDS ORDERED: ASPIRIN 81 MG ECTAB PO STA (12:47)
--- NOTE | 2017-10-06 13:19 | Podiatry Consultation ---
Podiatry Consultation Date of Consultation: Oct 06, 2017. Attending Physician: Meliton Bran MD Reason for Consultation: Elongated, painful nails History of Present Illness 62 year old female patient seen today for consult of painful, elongated nails. Patient states she has not had these done in a long time because she is unable to do these due to thickness. She is requesting these be debrided today. Social History Smoking Status: Never Smoker Allergies Coded Allergies: No Known Allergies (Unverified , 10/04/17) Home Medications Scheduled Aspirin (Aspirin Ec), 81 MG PO DAILY Fexofenadine Hcl (Esperanza Allergy), 180 MG PO DAILY Fluticasone Propionate (Flovent Hfa), 2 PUFFS INH BID Galantamine Hydrobromide (Razadyne), 12 MG PO BIDM Levothyroxine Sodium (Levothyroxine Sodium), 112 MCG PO DAILY Melatonin (Melatonin), 3 MG PO HS Memantine (Namenda), 10 MG PO BID Metformin Hcl (Glucophage), 500 MG PO DAILY Montelukast Sodium (Singulair), 10 MG PO QPM Multiple Vitamins W/ Minerals (Womens One Daily), 1 TAB PO DAILY Potassium Chloride (Potassium Chloride Er), 20 MEQ PO DAILY Propranolol (Inderal), 20 MG PO QAM Propranolol (Inderal), 10 MG PO QPM Tolterodine Tartrate (Detrol LA), 2 MG PO BID Venlafaxine Hcl (Effexor Extended Rel), 75 MG PO DAILY Scheduled PRN Meloxicam (Mobic), 7.5 MG PO DAILY PRN for Pain Current Inpatient Medications Current Inpatient Medications Medications (Trade) Dose Ordered Sig/Ronak Route Start Time Stop Time Status Last Admin Dose Admin Fluticasone Propionate (Flovent Hfa 110MCG Inhaler) 2 puffs BID INH 10/05/17 09:00 11/04/17 08:59 10/06/17 08:40 2 PUFFS Galantamine Hydrobromide (Razadyne Tab) 12 mg BIDM PO 10/05/17 08:00 11/04/17 07:59 10/06/17 08:38 12 MG Levothyroxine Sodium (Synthroid Tab) 112 mcg DAILYBB PO 10/05/17 06:00 11/04/17 05:59 10/06/17 05:42 112 MCG Memantine (Namenda Tab) 10 mg BID PO 10/05/17 09:00 11/04/17 08:59 10/06/17 08:38 10 MG Montelukast Sodium (Singulair Tab) 10 mg QPM PO 10/05/17 21:00 11/04/17 20:59 10/05/17 21:10 10 MG Multivitamins/ Minerals (Multivitamin W/ Minerals Tab) 1 tab DAILY PO 10/05/17 09:00 11/04/17 08:59 10/06/17 08:38 1 TAB Propranolol HCl (Inderal Tab) 10 mg QPM PO 10/05/17 21:00 11/04/17 20:59 10/05/17 21:09 10 MG Propranolol HCl (Inderal Tab) 20 mg QAM PO 10/05/17 09:00 11/04/17 08:59 10/06/17 08:39 20 MG Tolterodine Tartrate (Detrol LA Cap) 2 mg BID PO 10/05/17 09:00 11/04/17 08:59 10/06/17 08:39 2 MG Venlafaxine HCl (effeXOR EXTENDED REL CAP) 75 mg DAILY PO 10/05/17 09:00 11/04/17 08:59 10/06/17 08:38 75 MG Glucose (Glucose 40% Gel) 15-30 GRAMS 15 GRAMS... UD PRN PO 10/05/17 00:45 11/04/17 00:44 Glucose (Glucose Chew Tab) 4-8 Tablets 4 Tabl... UD PRN PO 10/05/17 00:45 11/04/17 00:44 Dextrose (Dextrose 50% 50ML Syringe) 25-50ML OF 50% DW IV FOR... UD PRN IV 10/05/17 00:45 11/04/17 00:44 Glucagon (Glucagon Inj) 1 mg UD PRN SQ 10/05/17 00:45 11/04/17 00:44 Ketorolac Tromethamine (Toradol Inj) 30 mg Q6H PRN IV 10/05/17 00:45 10/10/17 00:44 10/06/17 03:12 30 MG Tramadol HCl (Ultram Tab) not relieved by tylenol @ Q6H PRN PO 10/05/17 00:45 11/04/17 00:44 2/16/18 09:23 50 MG Prochlorperazine Edisylate 5 mg/ Syringe 5 ml @ 5 mls/min Q6H PRN IV 10/05/17 00:45 11/04/17 00:44 Morphine Sulfate (MoRPHine SULFATE INJ) 4 mg Q4H PRN IV 10/05/17 00:45 10/19/17 00:44 Albuterol/ Ipratropium (Duoneb) 3 ml Q2H PRN INH 10/05/17 00:45 11/04/17 00:44 Acetaminophen (Tylenol Tab) 325 mg Q6H PRN PO 10/05/17 01:00 11/04/17 00:44 Docusate Sodium (coLACE CAP) 100 mg BID PO 10/05/17 21:00 11/04/17 20:59 10/06/17 09:23 100 MG Polyethylene (Miralax Powder Packet) 17 gm DAILY PRN PO 10/05/17 17:15 11/04/17 17:14 Insulin Glargine (Lantus Solostar Pen) 5 units DAILY SC 10/06/17 09:00 11/05/17 08:59 10/06/17 09:28 5 UNITS Insulin Aspart (novoLOG ASPART) SLIDING SCALE If C... ACHS SC 10/05/17 21:00 11/04/17 20:59 10/06/17 09:28 3 UNITS Aspirin (Ecotrin Tab) 81 mg BID PO 10/06/17 21:00 11/05/17 20:59 Review of Systems Constitutional: No fever, No chills Respiratory: No cough, No wheezing, No shortness of breath Musculoskeletal: + joint pain, + muscle pain Physical Exam Date Time Temp Pulse Resp B/P (MAP) Pulse Ox O2 Delivery O2 Flow Rate FiO2 10/06/17 12:04 36.8 71 18 125/83 (97) 95 Room Air 10/06/17 09:14 93 Room Air 10/06/17 08:00 Room Air 10/06/17 07:44 36.8 67 18 142/88 (106) 93 Room Air 10/06/17 03:00 37.0 71 16 128/81 (97) 91 Room Air 10/05/17 23:15 Room Air 10/05/17 22:09 36.9 69 18 125/75 (92) 93 Room Air 10/05/17 18:56 36.6 69 18 124/82 (96) 99 Nasal Cannula 2.0 10/05/17 18:00 37.1 73 18 141/84 (103) 98 Nasal Cannula 2.0 10/05/17 16:52 36.5 66 18 139/86 (103) 98 Nasal Cannula 2.0 10/05/17 16:28 36.5 68 18 139/83 (101) 98 Nasal Cannula 2.0 10/05/17 15:55 Nasal Cannula 2.0 10/05/17 15:55 36.6 68 18 143/83 (103) 99 Nasal Cannula 2.0 10/05/17 15:55 99 Nasal Cannula 2.0 10/05/17 15:45 36.3 67 18 157/79 97 Nasal Cannula 2 10/05/17 15:30 70 14 148/69 99 Nasal Cannula 4 10/05/17 15:20 72 16 146/99 98 Nasal Cannula 4 10/05/17 15:10 67 14 144/92 100 Oxymask 10 10/05/17 15:01 36.4 74 12 158/88 100 Oxymask 10 Physical examination demonstrates nail 1-5 b/l to be thickened, extremely elongated, discolored yellow, with subungual debris. Pedal edema is present on left due to ORIF ankle; unable to palpate pulses due to splint in place. Pulses on right foot are palpable. Hair growth is demonstrated to dorsal digits. Skin appears thin and dry. Laboratory Results Last 24 Hours Test 10/05/17 15:09 10/05/17 16:51 10/05/17 20:40 10/06/17 07:05 Bedside Glucose 128 mg/dl 124 mg/dl 120 mg/dl White Blood Count 7.65 K/uL Red Blood Count 3.57 M/uL Hemoglobin 11.6 g/dL Hematocrit 35.3 % Mean Corpuscular Volume 98.9 fL Mean Corpuscular Hemoglobin 32.5 pg Mean Corpuscular Hemoglobin Concent 32.9 g/dl RDW Standard Deviation 48.5 fL RDW Coefficient of Variation 13.4 % Platelet Count 179 K/uL Mean Platelet Volume 10.1 fL Sodium Level 140 mmol/L Potassium Level 3.6 mmol/L Chloride Level 105 mmol/L Carbon Dioxide Level 28 mmol/L Anion Gap 7.0 mmol/L Blood Urea Nitrogen 12 mg/dl Creatinine 0.54 mg/dl Est Creatinine Clear Calc Drug Dose 134.9 ml/min Estimated GFR () 117.2 Estimated GFR (Non- 101.1 BUN/Creatinine Ratio 21.6 Random Glucose 125 mg/dl Calcium Level 7.8 mg/dl Magnesium Level 1.9 mg/dl Total Bilirubin 1.9 mg/dl Direct Bilirubin 0.6 mg/dl Aspartate Amino Transf (AST/SGOT) 68 U/L Alanine Aminotransferase (ALT/SGPT) 75 U/L Alkaline Phosphatase 91 U/L Total Protein 6.4 gm/dl Albumin 3.0 gm/dl Test 10/06/17 08:05 Bedside Glucose 138 mg/dl Assessment & Plan (1) Tinea unguium 1. Patient examined and evaluated. 2. Nails 1-5 b/l debrided in length and thickness with nail nippers. Patient tolerated this well. 3. Recommend follow-up in the office for routine diabetic foot care. Thank you for this consult.
[2017-10-06] MEDS: MONTELUKAST SOD 10 MG TAB PO SCH (20:20)
[2017-10-06] MEDS: ASPIRIN 81 MG ECTAB PO SCH (20:20)
[2017-10-07] MEDS: KETOROLAC TROMETHAMINE 30 MG/ML VIAL IV PRN (01:13)
[2017-10-07] MEDS: LEVOTHYROXINE 112 MCG TAB PO SCH (05:34)
--- NOTE | 2017-10-07 06:20 | Orthopedic Progress Note ---
Orthopedic Progress Note Date of Service Oct 07, 2017. Subjective Post OP Day: 2 Reports: feeling well, pain controlled w PO medications, Denies: complaints, chest pain, SOB, nausea / vomiting, light headedness, calf pain Objective N/V intact, splint C/D/I, dressing C/D/I, A&O x3, toes mobile Date Time Temp Pulse Resp B/P (MAP) Pulse Ox O2 Delivery O2 Flow Rate FiO2 10/06/17 23:39 36.7 73 16 139/69 (92) 94 Room Air 10/06/17 20:30 Room Air 10/06/17 20:18 66 140/80 (100) 10/06/17 15:25 93 Room Air 10/06/17 15:04 36.7 65 19 112/74 (87) 93 Room Air 10/06/17 12:04 36.8 71 18 125/83 (97) 95 Room Air 10/06/17 09:14 93 Room Air 10/06/17 08:00 Room Air 10/06/17 07:44 36.8 67 18 142/88 (106) 93 Room Air Laboratory Results 24 Hours: Test 10/06/17 07:05 10/07/17 05:44 Hematocrit 35.3 % Hemoglobin 11.6 g/dL Assessment & Plan Assessment: 62 yo female stable POD #2 s/p ORIF left ankle Plan: 1. Med management 2. DVT prophylaxis- ASA- SCDs 3. PT/OT 4. D/C planning- pt likely to require rehab/SNF Patient stable from ortho standpoint, maintain splint, NWB, ice/elevate for swelling. please refer to discharge note for follow up instructions. please feel free to contact us during her hospital stay with any further questions or concerns. (1) Tinea unguium Chronic
[2017-10-07 06:27] LABS: HEMATOCRIT 36.3 % (37-47); HEMOGLOBIN 11.5 g/dL (12.0-16.0); MEAN CELL VOLUME 99.7 fL (80-100); MEAN CORPUSCULAR HEMOGLOBIN 31.6 pg (25-34); MEAN CORPUSCULAR HGB CONC 31.7 g/dl (32-36); MEAN PLATELET VOLUME 10.3 fL (7.4-10.4); PLATELET COUNT 197 K/uL (130-400); RED CELL DISTRIBUTION WIDTH CV 13.3 % (11.5-14.5); WHITE BLOOD COUNT 8.49 K/uL (4.8-10.8)
[2017-10-07 06:59] LABS: CALCIUM 7.9 mg/dl (8.5-10.1); CREATININE 0.53 mg/dl (0.60-1.20); POTASSIUM 3.4 mmol/L (3.5-5.1)
[2017-10-07 07:30] VITALS: BP 141/80; PULSE 65; TEMP 36.8; O2SAT 91
[2017-10-07] MEDS: INSULIN ASPART 100 UNITS/ML 3 ML PEN SC SCH ×4 (10:05→20:30)
[2017-10-07] MEDS: INSULIN GLARGINE SOLOSTAR 100 UNITS/ML 3 ML PEN SC SCH (10:07)
[2017-10-07] MEDS: GALANTAMINE HYDROBROMIDE 4 MG TAB PO SCH ×2 (10:08→18:05)
[2017-10-07] MEDS: VENLAFAXINE HCL XR 75 MG CAPXR PO SCH (10:08)
[2017-10-07] MEDS: CEROVITE ADV FORMULA TAB PO SCH (10:08)
[2017-10-07] MEDS: DOCUSATE SODIUM 100 MG CAP PO SCH ×2 (10:08→20:36)
[2017-10-07] MEDS: TOLTERODINE TARTRATE LA 2 MG CAPCR PO SCH ×2 (10:09→20:35)
[2017-10-07] MEDS: PROPRANOLOL HCL 10 MG TAB PO SCH ×2 (10:09→20:35)
[2017-10-07] MEDS: FLUTICASONE HFA 110MCG INHALER INH SCH ×2 (10:10→20:31)
[2017-10-07] MEDS: MEMANTINE 10 MG TAB PO SCH ×2 (10:10→20:31)
[2017-10-07] MEDS: ASPIRIN 81 MG ECTAB PO SCH ×2 (10:10→20:36)
[2017-10-07] MEDS ORDERED: POTASSIUM CHLORIDE 10 MEQ TABCR PO STA (12:41)
[2017-10-07 15:06] VITALS: BP 125/69; PULSE 70; TEMP 36.4; O2SAT 93
--- NOTE | 2017-10-07 16:50 | Progress Note ---
Internal Med Progress Note Date of Service: Oct 07, 2017. Provider Documentation: SUBJECTIVE: Seen and examined at bedside Doing well LLE pain is controlled Denies chest pain, cough, SOB OBJECTIVE: Vital Signs-as noted below Physical Exam: General Appearance:Obese, no apparent distress Head: normocephalic, Atraumatic Eyes: normal inspection, EOMI, PERRL Neck: supple, Trachea midline Respiratory/Chest: Normal breath sounds, CTA Cardiovascular: S1, S2, No murmur Abdomen/GI:Soft, Non tender, Bowel sounds present Extremities/Musculoskelatal:normal inspection, no edema, LLE in bandage Neurologic/Psych:grossly no focal neurological deficits Skin: normal color, warm Lab data as noted below. ASSESSMENT & PLAN: Traumatic Left ankle fracture S/P mechanical fall Ankle X ray:Mildly displaced bimalleolar fracture left ankle S/P ORIF of Bimalleolar ankle fracture POD # 2 Appreciate Orthopedics help Pain control PT/OT Continue bowel regimen Aspirin and SCDs for anticoagulation Hypertension stable continue home meds DM II: A1C:6.5 Hold PO meds Continue ISS, lantus Hypokalemia, hypomagnesemia: replace and monitor Dementia: Stable H/O Asthma No signs of exacerbation stable Chronic Transaminitis: Denies abd pain ABD USD: Suggestive of Hepatic steatosis and hepatomegaly. Dilated intrahepatic and extrahepatic biliary ducts may represent a reservoir effect in the post cholecystectomy state. DVT Px: On ASA and SCDs Code Status DNR Disposition: Medically stable for discharge Plan to discharge to [facility] if accepted PT/OT consulting services manager consulted Patient requests her son be updated of plan of care. Mr. Trav Hudson at [phone]. Vital Signs: Date Time Temp Pulse Resp B/P (MAP) Pulse Ox O2 Delivery O2 Flow Rate FiO2 10/07/17 15:15 Room Air 10/07/17 15:06 36.4 70 18 125/69 (87) 93 Room Air 10/07/17 07:30 36.8 65 16 141/80 (100) 91 Room Air 10/07/17 07:24 Room Air 10/06/17 23:39 36.7 73 16 139/69 (92) 94 Room Air 10/06/17 20:30 Room Air 10/06/17 20:18 66 140/80 (100) Lab Results: Results Past 24 Hours Test 10/06/17 17:19 10/06/17 19:22 10/06/17 21:04 10/07/17 05:44 Range/Units Bedside Glucose 108 131 70-90 mg/dl Urine Color YELLOW Urine Appearance CLEAR CLEAR Urine pH 5.5 4.5-7.5 Urine Specific Wendel 1.016 1.000-1.030 Urine Protein NEG NEG Urine Glucose (UA) NEG NEG Urine Ketones 1+ NEG Urine Occult Blood NEG NEG Urine Nitrite NEG NEG Urine Bilirubin NEG NEG Urine Urobilinogen NEG NEG Urine Leukocyte Esterase MODERATE NEG Urine WBC (Auto) >30 0-5 /hpf Urine RBC (Auto) 0-4 0-4 /hpf Urine Hyaline Casts (Auto) 1-5 0-5 /lpf Urine Epithelial Cells (Auto) >30 0-5 /lpf Urine Bacteria (Auto) NEG NEG White Blood Count 8.49 4.8-10.8 K/uL Red Blood Count 3.64 4.2-5.4 M/uL Hemoglobin 11.5 12.0-16.0 g/dL Hematocrit 36.3 37-47 % Mean Corpuscular Volume 99.7 80-100 fL Mean Corpuscular Hemoglobin 31.6 25-34 pg Mean Corpuscular Hemoglobin Concent 31.7 32-36 g/dl RDW Standard Deviation 49.0 36.4-46.3 fL RDW Coefficient of Variation 13.3 11.5-14.5 % Platelet Count 197 130-400 K/uL Mean Platelet Volume 10.3 7.4-10.4 fL Sodium Level 141 136-145 mmol/L Potassium Level 3.4 3.5-5.1 mmol/L Chloride Level 104 98-107 mmol/L Carbon Dioxide Level 31 21-32 mmol/L Anion Gap 6.0 3-11 mmol/L Blood Urea Nitrogen 14 7-18 mg/dl Creatinine 0.53 0.60-1.20 mg/dl Est Creatinine Clear Calc Drug Dose 137.4 ml/min Estimated GFR () 117.9 Estimated GFR (Non- 101.8 BUN/Creatinine Ratio 27.0 10-20 Random Glucose 124 70-99 mg/dl Calcium Level 7.9 8.5-10.1 mg/dl Magnesium Level 1.8 1.8-2.4 mg/dl Test 10/07/17 08:06 10/07/17 12:10 Range/Units Bedside Glucose 118 146 70-90 mg/dl Microbiology Results 10/06/17 Urine Culture - Preliminary, Resulted NO GROWTH - LESS THAN 1,000 COLONIES/...
[2017-10-07] MEDS: MONTELUKAST SOD 10 MG TAB PO SCH (20:37)
[2017-10-07] MEDS: TRAMADOL HCL 50 MG TAB PO PRN (20:39)
[2017-10-07] MEDS ORDERED: SENNA 8.6 MG TAB PO ONE (21:00)
[2017-10-07 22:51] VITALS: BP 130/81; PULSE 81; TEMP 36.8; O2SAT 93
[2017-10-08 00:10] VITALS: O2SAT 93
[2017-10-08] MEDS: KETOROLAC TROMETHAMINE 30 MG/ML VIAL IV PRN ×2 (00:28→23:58)
[2017-10-08 05:46] LABS: HEMOGLOBIN 11.3 g/dL (12.0-16.0); MEAN CELL VOLUME 99.7 fL (80-100); MEAN CORPUSCULAR HEMOGLOBIN 32.2 pg (25-34); MEAN CORPUSCULAR HGB CONC 32.3 g/dl (32-36); MEAN PLATELET VOLUME 10.2 fL (7.4-10.4); PLATELET COUNT 201 K/uL (130-400); RED CELL DISTRIBUTION WIDTH CV 13.4 % (11.5-14.5); RED CELL DISTRIBUTION WIDTH SD 48.3 fL (36.4-46.3); WHITE BLOOD COUNT 8.46 K/uL (4.8-10.8)
[2017-10-08] MEDS: LEVOTHYROXINE 112 MCG TAB PO SCH (06:02)
[2017-10-08 06:05] LABS: CALCIUM 8.5 mg/dl (8.5-10.1); CREATININE 0.56 mg/dl (0.60-1.20); POTASSIUM 3.5 mmol/L (3.5-5.1)
[2017-10-08 07:19] VITALS: BP 148/65; PULSE 70; TEMP 36.7; O2SAT 97
[2017-10-08] MEDS: INSULIN ASPART 100 UNITS/ML 3 ML PEN SC SCH ×4 (10:07→21:00)
[2017-10-08] MEDS: INSULIN GLARGINE SOLOSTAR 100 UNITS/ML 3 ML PEN SC SCH (10:08)
[2017-10-08] MEDS: DOCUSATE SODIUM 100 MG CAP PO SCH ×2 (10:10→21:21)
[2017-10-08] MEDS: CEROVITE ADV FORMULA TAB PO SCH (10:11)
[2017-10-08] MEDS: MEMANTINE 10 MG TAB PO SCH ×2 (10:11→21:20)
[2017-10-08] MEDS: VENLAFAXINE HCL XR 75 MG CAPXR PO SCH (10:11)
[2017-10-08] MEDS: PROPRANOLOL HCL 10 MG TAB PO SCH ×2 (10:12→21:23)
[2017-10-08] MEDS: ASPIRIN 81 MG ECTAB PO SCH ×2 (10:12→21:20)
[2017-10-08] MEDS: GALANTAMINE HYDROBROMIDE 4 MG TAB PO SCH ×2 (10:13→18:14)
[2017-10-08] MEDS: TOLTERODINE TARTRATE LA 2 MG CAPCR PO SCH ×2 (10:13→21:20)
[2017-10-08] MEDS: FLUTICASONE HFA 110MCG INHALER INH SCH ×2 (10:15→21:21)
--- NOTE | 2017-10-08 14:28 | Progress Note ---
Internal Med Progress Note Date of Service: Oct 08, 2017. Provider Documentation: SUBJECTIVE: Seen and examined at bedside Had mild floating today which improved Denies nausea, vomiting, abd pain No BM yet, passing gas LLE pain is controlled Denies chest pain, cough, SOB Family at bedside OBJECTIVE: Vital Signs-as noted below Physical Exam: General Appearance:Obese, no apparent distress Head: normocephalic, Atraumatic Eyes: normal inspection, EOMI, PERRL Neck: supple, Trachea midline Respiratory/Chest: Normal breath sounds, CTA Cardiovascular: S1, S2, No murmur Abdomen/GI:Soft, Non tender, Bowel sounds present Extremities/Musculoskelatal:normal inspection, no edema, LLE in bandage Neurologic/Psych:grossly no focal neurological deficits Skin: normal color, warm Lab data as noted below. ASSESSMENT & PLAN: Traumatic Left ankle fracture S/P mechanical fall Ankle X ray:Mildly displaced bimalleolar fracture left ankle S/P ORIF of Bimalleolar ankle fracture POD # 3 Appreciate Orthopedics help Pain control PT/OT Continue bowel regimen Aspirin and SCDs for anticoagulation Waiting for placement Hypertension stable continue home meds DM II: A1C:6.5 Hold PO meds Continue ISS, lantus Hypokalemia, hypomagnesemia: replace and monitor Dementia: Stable H/O Asthma No signs of exacerbation stable Chronic Transaminitis: Denies abd pain ABD USD: Suggestive of Hepatic steatosis and hepatomegaly. Dilated intrahepatic and extrahepatic biliary ducts may represent a reservoir effect in the post cholecystectomy state. DVT Px: On ASA and SCDs Code Status DNR Disposition: Medically stable for discharge Plan to discharge to [facility] if accepted PT/OT nutritional services director consulted Patient requests her son be updated of plan of care. Mr. Trav Hudson at [phone]. Vital Signs: Date Time Temp Pulse Resp B/P (MAP) Pulse Ox O2 Delivery O2 Flow Rate FiO2 10/08/17 09:30 Room Air 10/08/17 07:19 36.7 70 18 148/65 (92) 97 Room Air 10/08/17 00:10 93 Room Air 10/07/17 22:51 36.8 81 22 130/81 (97) 93 Room Air 10/07/17 15:15 Room Air 10/07/17 15:06 36.4 70 18 125/69 (87) 93 Room Air Lab Results: Results Past 24 Hours Test 10/07/17 16:56 10/07/17 20:12 10/08/17 05:02 10/08/17 08:01 Range/Units Bedside Glucose 132 118 130 70-90 mg/dl White Blood Count 8.46 4.8-10.8 K/uL Red Blood Count 3.51 4.2-5.4 M/uL Hemoglobin 11.3 12.0-16.0 g/dL Hematocrit 35.0 37-47 % Mean Corpuscular Volume 99.7 80-100 fL Mean Corpuscular Hemoglobin 32.2 25-34 pg Mean Corpuscular Hemoglobin Concent 32.3 32-36 g/dl RDW Standard Deviation 48.3 36.4-46.3 fL RDW Coefficient of Variation 13.4 11.5-14.5 % Platelet Count 201 130-400 K/uL Mean Platelet Volume 10.2 7.4-10.4 fL Sodium Level 140 136-145 mmol/L Potassium Level 3.5 3.5-5.1 mmol/L Chloride Level 104 98-107 mmol/L Carbon Dioxide Level 29 21-32 mmol/L Anion Gap 7.0 3-11 mmol/L Blood Urea Nitrogen 20 7-18 mg/dl Creatinine 0.56 0.60-1.20 mg/dl Est Creatinine Clear Calc Drug Dose 130.0 ml/min Estimated GFR () 115.8 Estimated GFR (Non- 99.9 BUN/Creatinine Ratio 35.5 10-20 Random Glucose 125 70-99 mg/dl Calcium Level 8.5 8.5-10.1 mg/dl Magnesium Level 1.9 1.8-2.4 mg/dl
[2017-10-08] MEDS ORDERED: POTASSIUM CHLORIDE 10 MEQ TABCR PO ONE (14:30)
[2017-10-08 15:25] VITALS: BP 123/75; PULSE 71; TEMP 36.7; O2SAT 91
[2017-10-08] MEDS: TRAMADOL HCL 50 MG TAB PO PRN (15:30)
[2017-10-08] MEDS: POLYETHYLENE (MIRALAX) 17 GM PACK PO PRN (15:30)
[2017-10-08] MEDS ORDERED: SENNA 8.6 MG TAB PO ONE (21:00)
[2017-10-08] MEDS: MONTELUKAST SOD 10 MG TAB PO SCH (21:21)
[2017-10-08 23:50] VITALS: BP 144/70; PULSE 68; TEMP 36.5; O2SAT 94
[2017-10-09 00:10] VITALS: O2SAT 93
[2017-10-09] MEDS: LEVOTHYROXINE 112 MCG TAB PO SCH (05:53)
[2017-10-09 06:18] LABS: HEMATOCRIT 35.7 % (37-47); HEMOGLOBIN 11.5 g/dL (12.0-16.0)
[2017-10-09 06:54] LABS: CALCIUM 8.4 mg/dl (8.5-10.1); CREATININE 0.59 mg/dl (0.60-1.20); POTASSIUM 3.6 mmol/L (3.5-5.1)
[2017-10-09 07:46] VITALS: BP 138/84; PULSE 65; TEMP 36.8; O2SAT 93
[2017-10-09] MEDS: INSULIN ASPART 100 UNITS/ML 3 ML PEN SC SCH ×2 (10:05→12:48)
[2017-10-09] MEDS: INSULIN GLARGINE SOLOSTAR 100 UNITS/ML 3 ML PEN SC SCH (10:06)
[2017-10-09] MEDS: POLYETHYLENE (MIRALAX) 17 GM PACK PO PRN (10:07)
[2017-10-09] MEDS: FLUTICASONE HFA 110MCG INHALER INH SCH (10:07)
[2017-10-09] MEDS: TOLTERODINE TARTRATE LA 2 MG CAPCR PO SCH (10:08)
[2017-10-09] MEDS: PROPRANOLOL HCL 10 MG TAB PO SCH (10:08)
[2017-10-09] MEDS: ASPIRIN 81 MG ECTAB PO SCH (10:08)
[2017-10-09] MEDS: GALANTAMINE HYDROBROMIDE 4 MG TAB PO SCH (10:09)
[2017-10-09] MEDS: CEROVITE ADV FORMULA TAB PO SCH (10:09)
[2017-10-09] MEDS: VENLAFAXINE HCL XR 75 MG CAPXR PO SCH (10:09)
[2017-10-09] MEDS: MEMANTINE 10 MG TAB PO SCH (10:10)
[2017-10-09] MEDS: DOCUSATE SODIUM 100 MG CAP PO SCH (10:10)
--- NOTE | 2017-10-09 10:30 | Progress Note ---
Internal Med Progress Note Date of Service: Oct 09, 2017. Provider Documentation: SUBJECTIVE: Seen and examined at bedside Doing well Leg Pain is controlled Denies nausea, vomiting, abd pain, chest pain, SOB Planned to be discharged to [facility] today OBJECTIVE: Vital Signs-as noted below Physical Exam: General Appearance:Obese, no apparent distress Head: normocephalic, Atraumatic Eyes: normal inspection, EOMI, PERRL Neck: supple, Trachea midline Respiratory/Chest: Normal breath sounds, CTA Cardiovascular: S1, S2, No murmur Abdomen/GI:Soft, Non tender, Bowel sounds present Extremities/Musculoskelatal:normal inspection, no edema, LLE in bandage Neurologic/Psych:grossly no focal neurological deficits Skin: normal color, warm Lab data as noted below. ASSESSMENT & PLAN: Traumatic Left ankle fracture S/P mechanical fall Ankle X ray:Mildly displaced bimalleolar fracture left ankle S/P ORIF of Bimalleolar ankle fracture POD # 4 Appreciate Orthopedics help Pain control PT/OT Continue bowel regimen Aspirin and SCDs for anticoagulation Hypertension stable continue home meds DM II: A1C:6.5 Hold PO meds Continue ISS, lantus Hypokalemia, hypomagnesemia: replace and monitor Dementia: Stable H/O Asthma No signs of exacerbation stable Chronic Transaminitis: Denies abd pain ABD USD: Suggestive of Hepatic steatosis and hepatomegaly. Dilated intrahepatic and extrahepatic biliary ducts may represent a reservoir effect in the post cholecystectomy state. DVT Px: On ASA and SCDs Code Status DNR Disposition: Plan to discharge to [facility] today Follow up with your Primary Care Physician SUSANNA Blake in 1 week after being discharged from [facility] Follow up with your Orthopedic Surgeon in 10 days. Please call for appointment Seek immediate medical attention if your symptoms reoccur or worsen Orthopedic Surgeon Instructions: Nonweightbearing Maintain splint until follow-up with MD. Keep splint clean and dry. Frequent ice and elevation. Follow-up with Dr Mccollum ~ 10-14 days, [phone] for appt. Vital Signs: Date Time Temp Pulse Resp B/P (MAP) Pulse Ox O2 Delivery O2 Flow Rate FiO2 10/09/17 07:46 36.8 65 18 138/84 (102) 93 Room Air 10/09/17 00:10 93 Room Air 10/08/17 23:50 36.5 68 16 144/70 (94) 94 Room Air 10/08/17 15:25 36.7 71 18 123/75 (91) 91 Room Air 10/08/17 15:15 Room Air Lab Results: Results Past 24 Hours Test 10/08/17 11:52 10/08/17 16:50 10/08/17 20:37 10/09/17 05:49 Range/Units Bedside Glucose 135 115 144 70-90 mg/dl Hemoglobin 11.5 12.0-16.0 g/dL Hematocrit 35.7 37-47 % Sodium Level 142 136-145 mmol/L Potassium Level 3.6 3.5-5.1 mmol/L Chloride Level 105 98-107 mmol/L Carbon Dioxide Level 28 21-32 mmol/L Anion Gap 9.0 3-11 mmol/L Blood Urea Nitrogen 20 7-18 mg/dl Creatinine 0.59 0.60-1.20 mg/dl Est Creatinine Clear Calc Drug Dose 123.4 ml/min Estimated GFR () 113.9 Estimated GFR (Non- 98.2 BUN/Creatinine Ratio 33.5 10-20 Random Glucose 122 70-99 mg/dl Calcium Level 8.4 8.5-10.1 mg/dl
[2017-10-09] MEDS ORDERED: CLC100 PO (10:34)
[2017-10-09] MEDS ORDERED: MRLP17X PO (10:34)
[2017-10-09] MEDS ORDERED: ASPI81TA28 PO (10:34)
[2017-10-09] MEDS ORDERED: ULT50X PO (10:34)
--- NOTE | 2017-10-09 10:36 | Discharge Summary ---
Discharge Summary Date of Service Oct 09, 2017. Discharge Summary Admission Date: Oct 05, 2017 at 00:30 Discharge Date: Oct 09, 2017 Discharge Disposition: Rehab Principal Diagnosis: Left Ankle Fracture S/P ORIF Procedures: Ankle X ray: Mildly displaced bimalleolar fracture left ankle. Considerable soft tissue edema. Consultations: Orthopedics Pending Studies/Follow-Up: Follow up with your Primary Care Physician SUSANNA Blake in 1 week after being discharged from [facility] Follow up with your Orthopedic Surgeon in 10 days. Please call for appointment Seek immediate medical attention if your symptoms reoccur or worsen Orthopedic Surgeon Instructions: Nonweightbearing Maintain splint until follow-up with MD. Keep splint clean and dry. Frequent ice and elevation. Follow-up with Dr Mccollum ~ 10-14 days, [phone] for appt. Medication Reconciliation New Medications: Sennosides (Senna) 8.6 Mg Cap 8.6 MG PO DAILY for 15 Days, #15 EA Docusate Sodium (Docusate Sodium) 100 Mg Cap 100 MG PO BID for 30 Days, #60 CAP Polyethylene (Miralax) 17 Gm Pow 17 GM PO DAILY PRN for Constipation for 30 Days, #30 EA Tramadol HCl (Tramadol HCl) 50 Mg Tab 25-50 MG PO Q6H PRN for Pain for 3 Days, #15 TAB Changed Medications: Aspirin (Aspirin Ec) 81 Mg Tab 81 MG PO BID for 30 Days, #60 EA (Changed from: DAILY) Continued Medications: Fexofenadine Hcl (Esperanza Allergy) 180 Mg Tab 180 MG PO DAILY, TAB Fluticasone Propionate (Flovent Hfa) 120 Puffs/75209 Mcg Aero 2 PUFFS INH BID, INHALER Galantamine Hydrobromide (Razadyne) 12 Mg Tab 12 MG PO BIDM, TAB Levothyroxine Sodium (Levothyroxine Sodium) 112 Mcg Tab 112 MCG PO DAILY, TAB Melatonin (Melatonin) 3 Mg Tab 3 MG PO HS Meloxicam (Mobic) 7.5 Mg Tab 7.5 MG PO DAILY PRN for Pain, TAB Memantine (Namenda) 10 Mg Tab 10 MG PO BID, TAB Metformin Hcl (Glucophage) 500 Mg Tab 500 MG PO DAILY, TAB TAKE THIS MEDICATION ONCE DAILY WITH EVENING MEAL Montelukast Sodium (Singulair) 10 Mg Tab 10 MG PO QPM, TAB Multiple Vitamins W/ Minerals (Womens One Daily) 1 Tab Tab 1 TAB PO DAILY Potassium Chloride (Potassium Chloride Er) 10 Meq Cap 20 MEQ PO DAILY, CAP Propranolol (Inderal) 10 Mg Tab 20 MG PO QAM, TAB Propranolol (Inderal) 10 Mg Tab 10 MG PO QPM, TAB Tolterodine Tartrate (Detrol LA) 2 Mg Capcr 2 MG PO BID, CAP Venlafaxine Hcl (Effexor Extended Rel) 75 Mg Capcr 75 MG PO DAILY, CAP Admission Information HPI (per Admitting provider): CHIEF COMPLAINT: Fall, left ankle pain. HISTORY OF PRESENT ILLNESS: History obtained from patient and records. Patient is a reliable historian. Medical history significant for hypertension, DM2 on oral meds, dementia, tremors, asthma as per records. Patient slipped today and fell on the left side. Patient later noted excruciating left ankle pain. Unable to get up. No chest pain, no shortness of breath, no head trauma. Brought to the Emergency Room . Plain x-ray of the left ankle showed mildly displaced bimalleolar fracture of the left ankle. Rehab would not accept patient until the left ankle fixed as per ER provider. MEDICAL HISTORY: As above. Sees [facility] (Dr. Allred) for tremors and dementia. SURGERIES: Cholecystectomy. HOME MEDICATIONS: Include aspirin, Inderal, Detrol, Effexor, metformin, Singulair, Mobic, Namenda, potassium chloride, aspirin, Esperanza, Flovent melatonin. Physical Exam (per Admitting): PHYSICAL EXAMINATION: VITAL SIGNS: Blood pressure was noted to be 140/68, pulse rate 69, respiratory rate 18, temperature 36.7, sats 92 on room air GENERAL: Pleasant, obese, no respiratory distress. SKIN: Normal color. Warm. HEENT: [place] palpebral conjunctivae. No ptosis. Dry mucosa. NECK: Short, nontender. CHEST: Decreased effort. No tenderness. HEART: Regular rate and rhythm, no murmur. ABDOMEN: Some distention, nontender. EXTREMITIES: Immobilizer on the left lower extremity. Minimal LE swelling. NEUROLOGIC: Coherent. No gross focality except for chronic rest tremors on upper extremities Hospital Course Traumatic Left ankle fracture S/P mechanical fall Ankle X ray:Mildly displaced bimalleolar fracture left ankle S/P ORIF of Bimalleolar ankle fracture POD # 4 Appreciate Orthopedics help Pain control PT/OT Continue bowel regimen Aspirin and SCDs for anticoagulation Hypertension stable continue home meds DM II: A1C:6.5 Hold PO meds Continue ISS, lantus Hypokalemia, hypomagnesemia: replace and monitor Dementia: Stable H/O Asthma No signs of exacerbation stable Chronic Transaminitis: Denies abd pain ABD USD: Suggestive of Hepatic steatosis and hepatomegaly. Dilated intrahepatic and extrahepatic biliary ducts may represent a reservoir effect in the post cholecystectomy state. DVT Px: On ASA and SCDs Code Status DNR Disposition: Plan to discharge to [facility] today Follow up with your Primary Care Physician SUSANNA Blake in 1 week after being discharged from [facility] Follow up with your Orthopedic Surgeon in 10 days. Please call for appointment Seek immediate medical attention if your symptoms reoccur or worsen Orthopedic Surgeon Instructions: Nonweightbearing Maintain splint until follow-up with MD. Keep splint clean and dry. Frequent ice and elevation. Follow-up with Dr Mccollum ~ 10-14 days, [phone] for appt. Total time spent on discharge = 36 minutes This includes examination of the patient, discharge planning, medication reconciliation, and communication with other providers. Discharge Instructions Discharge Instructions Date of Service Oct 09, 2017. Admission Reason for Admission: Ankle Fracture Discharge Discharge Diagnosis / Problem: Left Ankle Fracture S/P ORIF Discharge Goals Goal(s): Decrease discomfort, Improve function Activity Recommendations Activity Limitations: per Instructions/Follow-up section Lifting Limitations: gradually increase as tolerated, until after follow-up appointment Exercise/Sports Limitations: until after follow-up appointment . Instructions / Follow-Up Instructions / Follow-Up Follow up with your Primary Care Physician SUSANNA Blake in 1 week after being discharged from [facility] Follow up with your Orthopedic Surgeon in 10 days. Please call for appointment Seek immediate medical attention if your symptoms reoccur or worsen Orthopedic Surgeon Instructions: Nonweightbearing Maintain splint until follow-up with MD. Keep splint clean and dry. Frequent ice and elevation. Follow-up with Dr Mccollum ~ 10-14 days, [phone] for appt. Current Hospital Diet Patient's current hospital diet: AHA Diet (Heart Healthy), Diabetes Type 2 Diet Discharge Diet Recommended Diet: AHA Diet (Heart Healthy), Diabetes Type 2 Diet Procedures Procedures Performed: Open Reduction Internal Fixation Left Bimalleolar Ankle Fracture Pending Studies Studies pending at discharge: no Laboratory Results Hemoglobin A1c Test 10/04/17 23:50 Range/Units Estimated Average Glucose 140 mg/dl Hemoglobin A1c 6.5 H 4.5-5.6 % Medical Emergencies . Who to Call and When: Medical Emergencies: If at any time you feel your situation is an emergency, please call 911 immediately. . Non-Emergent Contact Non-Emergency issues call your: Primary Care Provider, Surgeon Call Non-Emergent contact if: you have a fever, your pain is not controlled, your pain is worsening, your pain is unusual for you, your pain is concerning you, you have any medication questions Seek immediate medical attention if your symptoms reoccur or worsen . . "Provider Documentation" section prepared by Meliton Bran. . [facility] Director Recommendations Speech [facility] Hearing Clinic Director Recommendations: Nonweightbearing right lower extremity with walker. Maintain splint until follow-up with MD. Keep splint clean and dry. Frequent ice and elevation. Follow-up with Dr Mccollum ~ 10-14 days, [phone] for appt. VTE Core Measure Inpt VTE Proph given/why not?: SCD's
[2017-10-09] MEDS ORDERED: SENN8.6C PEG (10:37)
[2017-10-09] MEDS ORDERED: SENN8.6C PO (10:39)
[2017-10-09 10:42] VITALS: BP 138/84; PULSE 65; TEMP 36.8; O2SAT 93
[2017-10-09] MEDS: KETOROLAC TROMETHAMINE 30 MG/ML VIAL IV PRN (12:45)
== END 2017-10-09 14:00 | DRG 493 ==
LOC: C.EDD 20:38 → C.MSN 10-05 00:30 → ENRESERV 10-05 00:42
PROVIDERS: ADMIT Internal Medicine; ATTEND Internal Medicine
PROC: 0QSK04Z Reposition Left Fibula with Internal Fixation Device, Open Approach (ICD-10-PCS; principal; 2017-10-05 14:15)
PROC: 0QSH04Z Reposition Left Tibia with Internal Fixation Device, Open Approach (ICD-10-PCS; principal; 2017-10-05 14:15)
DX: S82.842A Displaced bimalleolar fracture of left lower leg, initial encounter for closed fracture (principal); Z68.41 Body mass index [BMI] 40.0-44.9, adult; E66.01 Morbid (severe) obesity due to excess calories; I10 Essential (primary) hypertension; E11.9 Type 2 diabetes mellitus without complications; Z79.84 Long term (current) use of oral hypoglycemic drugs; F03.90 Unspecified dementia, unspecified severity, without behavioral disturbance, psychotic disturbance, mood disturbance, and anxiety; J45.909 Unspecified asthma, uncomplicated; E87.6 Hypokalemia; E83.42 Hypomagnesemia; R74.0 Nonspecific elevation of levels of transaminase and lactic acid dehydrogenase [LDH]; G30.9 Alzheimer's disease, unspecified; F02.80 Dementia in other diseases classified elsewhere, unspecified severity, without behavioral disturbance, psychotic disturbance, mood disturbance, and anxiety; Z79.82 Long term (current) use of aspirin; B35.1 Tinea unguium; Y92.018 Other place in single-family (private) house as the place of occurrence of the external cause; W01.0XXA Fall on same level from slipping, tripping and stumbling without subsequent striking against object, initial encounter

== ENCOUNTER 2017-11-29 17:26 | Emergency (ER) | payer OTHER ==
[~2017-11-29] VITALS: Ht 162.6 cm; Wt 114.0 kg
[~2017-11-29 17:26] MED LIST: ASPI81TA28 PO; CLC100 PO; DTRSR/2 PO; EFFSR75 PO; FEXO1TAB49 PO; FLVHFA110 INH; GALA12TA PO; GLC/500 PO; LEVO112T4 PO; MELA1TAB49 PO; MELO7.5T5 PO; MONT1TAB3 PO; MRLP17X PO; MULT-240 PO; NMN10 PO; POTA1CAP2 PO; PROP10TA7 PO; SENN8.6C PO; ULT50X PO
[2017-11-29 17:43] VITALS: BP 161/100; TEMP 36.8; Ht 162.6 cm; Wt 114.0 kg
--- NOTE | 2017-11-29 18:42 | DIAGNOSTIC IMAGING REPORT ---
R KNEE 1 OR 2 VIEWS ROUTINE HISTORY: 62 years-old Female RT KNEE PAIN acute right knee pain COMPARISON: None available TECHNIQUE: 2 views of the right knee FINDINGS: Mild medial and lateral compartment with moderate patellofemoral compartment osteoarthritis. There is no acute fracture or dislocation. Trace knee joint effusion. No intra-articular loose body identified. IMPRESSION: 1. Trace knee joint effusion without acute fracture. 2. Tricompartmental osteoarthritis, moderate within the patellofemoral joint. The above report was generated using voice recognition software. It may contain grammatical, syntax or spelling errors. Electronically signed by: Iker Rockwell M.D. 11/29/2017 6:41 PM Dictated Date/Time: 11/29/2017 6:39 PM
[2017-11-29] MEDS ORDERED: TRAMADOL HCL 50 MG HOME PACK PO ONE (19:15)
[2017-11-29 19:24] VITALS: PULSE 72; O2SAT 95
--- NOTE | 2017-11-29 23:45 | EMERGENCY ROOM VISIT NOTE ---
History First contact with patient: 17:47 Chief Complaint: KNEEPAIN Stated Complaint: RT KNEE PAIN, HEARD A POP History of Present Illness The patient is a 62 year old female who presents to the Emergency Room with family with complaints of right knee pain. The patient reports that she was actually in Dr. Mccollum's office this morning to have her cast changed on her left ankle. As they were putting her up on the table, the patient reports that her knee popped and had experienced sudden onset of pain, rated a 10 out of 10 with weightbearing. She did not complain of any pain at the time, and thought that the pain would go away when she got home. When the pain did not improve, she called the office and try to schedule an appointment for tomorrow. She was scheduled instead for Monday. When asked if the patient told the law firm receptionist that her knee was injured in their office, she reports that she did not. When asked if the office offered to see her at their evening clinic, she reported that they did not. She elected to come to the emergency department for reevaluation. The patient reports that she does have some tramadol at home that she has been taking for her left ankle fracture, and is also almost out. She did take 2 aspirin at lunchtime which did help somewhat with the pain. Review of Systems 10 system review was performed and was negative except for pertinent positives and negatives as indicated in history of present illness Past Medical/Surgical History Medical Problems: (1) Ankle fracture (2) Tinea unguium Medical Problems: (1) Alzheimer's Disease, Unspecified (2) Ankle fracture (3) Body Mass Index (Bmi) 40.0-44.9, Adult (4) Essential (Primary) Hypertension (5) Hypokalemia (6) Hypomagnesemia (7) Tinea unguium (8) Type 2 Diabetes Mellitus Without Complications Surgical Problems: (1) Displaced Bimalleolar Fracture Of Left Lower Leg, Init Family History Unremarkable Social History Smoking Status: Never Smoker Alcohol Use: none Marital Status: Occupation Status: disabled Current/Historical Medications Scheduled Aspirin (Aspirin Ec), 81 MG PO BID Docusate Sodium (Docusate Sodium), 100 MG PO BID Fexofenadine Hcl (Esperanza Allergy), 180 MG PO DAILY Fluticasone Propionate (Flovent Hfa), 2 PUFFS INH BID Galantamine Hydrobromide (Razadyne), 12 MG PO BIDM Levothyroxine Sodium (Levothyroxine Sodium), 112 MCG PO DAILY Melatonin (Melatonin), 3 MG PO HS Memantine (Namenda), 10 MG PO BID Metformin Hcl (Glucophage), 500 MG PO DAILY Montelukast Sodium (Singulair), 10 MG PO QPM Multiple Vitamins W/ Minerals (Womens One Daily), 1 TAB PO DAILY Potassium Chloride (Potassium Chloride Er), 20 MEQ PO DAILY Propranolol (Inderal), 20 MG PO QAM Propranolol (Inderal), 10 MG PO QPM Sennosides (Senna), 8.6 MG PO DAILY Tolterodine Tartrate (Detrol LA), 2 MG PO BID Venlafaxine Hcl (Effexor Extended Rel), 75 MG PO DAILY Scheduled PRN Meloxicam (Mobic), 7.5 MG PO DAILY PRN for Pain Polyethylene (Miralax), 17 GM PO DAILY PRN for Constipation Tramadol HCl (Tramadol HCl), 25-50 MG PO Q6H PRN for Pain Physical Exam Vital Signs Date Time Temp Pulse Resp B/P (MAP) Pulse Ox O2 Delivery O2 Flow Rate FiO2 11/29/17 19:24 72 16 95 11/29/17 17:43 36.8 70 18 161/100 95 Room Air Physical Exam CONSTITUTIONAL: Healthy and well nourished. Patient does not appear in any acute distress. HEENT: Normocephalic, atraumatic. Pupils equal, round and reactive. NECK: Full active range of motion without discomfort. RESPIRATORY: Clear to auscultation bilaterally with no wheezing, crackles, rhonchi or stridor. MUSCULOSKELETAL: Examination of the right knee does not show any obvious ecchymosis, erythema, abrasions or hematomas. Patient has mild discomfort with flexion and extension of the knee. Ligamentous exam is normal. She has no focal peripatellar tenderness to palpation. No tenderness to palpation of the hamstrings. Pedal pulses are intact. INTEGUMENTARY: No rash or other significant dermatologic conditions noted. NEUROLOGIC: Right lower extremity is sensory intact. Medical Decision & Procedures ER Provider Diagnostic Interpretation: My interpretation of right knee x-rays does not show any acute fractures or dislocations. A small joint effusion is noted with tricompartmental osteoarthritis. Radiologist report is as follows: R KNEE 1 OR 2 VIEWS ROUTINE HISTORY: 62 years-old Female RT KNEE PAIN acute right knee pain COMPARISON: None available TECHNIQUE: 2 views of the right knee FINDINGS: Mild medial and lateral compartment with moderate patellofemoral compartment osteoarthritis. There is no acute fracture or dislocation. Trace knee joint effusion. No intra-articular loose body identified. IMPRESSION: 1. Trace knee joint effusion without acute fracture. 2. Tricompartmental osteoarthritis, moderate within the patellofemoral joint. Medications Administered Medications (Trade) Dose Ordered Sig/Ronak Route Start Time Stop Time Status Last Admin Dose Admin Tramadol HCl (Ultram Home Pack) 1 homepack UD ONCE PO 11/29/17 19:15 11/29/17 19:16 DC 11/29/17 19:21 1 HOMEPACK Procedure ED Course Patient history and physical exam were performed. Nurse's notes were reviewed. Vital signs were reviewed and were normal. The patient refused any analgesics on initial exam. X-rays of the right knee were normal. Because the patient currently has a cast on the left leg, I did not feel comfortable applying any immobilization device on the right leg for fear of causing increased risk for falls. The patient does have a walker at home. She was encouraged to rest and intermittently apply ice and elevate the knee for swelling. Patient was provided a home pack for Ultram as needed for pain. The patient does have an appointment scheduled for Monday at 9:30 AM. The patient and family were happy with plan of care, and voiced understanding of all discharge instructions with the patient rated her discomfort a 5 out of 10 at the conclusion of my exam. The patient was also examined by Dr. Monet, ED attending physician, who agrees with workup and plan of care. Medical Decision [place] Drug Monitoring Program Search Results: patient reviewed within database, no issues identified Medication Reconcilliation Current Medication List: was personally reviewed by me Blood Pressure Screening Patient's blood pressure: Normal blood pressure Impression Primary Impression: Right anterior knee pain Departure Information Referrals Paty Luna (PCP) [facility] Inst[facility] [place]
--- NOTE | 2017-11-30 05:14 | EMERGENCY ROOM VISIT NOTE ---
ED Visit Note First contact with patient: 17:47 I reviewed the patient's past medical history, medications, and visit nursing notes. I discussed the case with the physician medical technician assistant, examined the patient, and agree with the findings and plan as documented in the physician assistants note.
== END 2017-11-29 19:24 | disposition home or self-care (01) ==
LOC: C.EDB 17:28 → C.EDD 19:24
DX: M25.561 Pain in right knee (principal); G30.9 Alzheimer's disease, unspecified; F02.80 Dementia in other diseases classified elsewhere, unspecified severity, without behavioral disturbance, psychotic disturbance, mood disturbance, and anxiety; Z68.41 Body mass index [BMI] 40.0-44.9, adult; I10 Essential (primary) hypertension; E87.6 Hypokalemia; E83.42 Hypomagnesemia; B35.1 Tinea unguium; E11.9 Type 2 diabetes mellitus without complications; Z79.899 Other long term (current) drug therapy

== ENCOUNTER 2023-08-17 17:36 | Inpatient (IN) ==
[2023-08-17] MEDS ORDERED: SODIUM CHLORIDE 0.9% 500 ML IV ONE (17:55)
--- NOTE | 2023-08-17 17:59 | Emergency Department Note ---
Impression & Plan Fall, Ambulatory dysfunction, Closed compression fracture of body of L1 vertebra ED Provider Note Provider: Hero Hernández MD DATE OF SERVICE: 08/17/2023 CHIEF COMPLAINT: Fall, on floor HISTORY OF PRESENT ILLNESS: Patient is a 68-year-old female past medical history of type 2 diabetes, lumbar radiculopathy, hypertension, tremor, and dementia presenting here via ambulance from her home. Patient herself states she has had trouble getting around just today. Nursing reports EMS stated the police were called for a welfare check on the patient as family has not heard from her in several days and found her on the floor. From what I can gather it seems like the patient fell on and fell on the as well. She reportedly laid on the floor for 3 days since . Patient denies shortness of breath or chest pain. Denies new numbness or tingling but has chronic numbness or tingling. Does not know the day of the week. States she feels a bit thirsty. PAST MEDICAL HISTORY: As noted above MEDICATIONS: Reviewed home medications but has not taken them for several days while she has been laying on the floor SOCIAL HISTORY: Lives by herself PHYSICAL EXAM: GENERAL: alert and oriented in no acute distress on stretcher tremulous Head: normocephalic and atraumatic EYES: No injection, discharge or icterus. PERRL NECK: Trachea midline. ENT: Mucous membranes pink and moist. LUNGS: Airway patent. No retractions. Breath sounds clear HEART: Regular rate and rhythm. No chest wall tenderness ABDOMEN: Soft and non-tender, without guarding or rebound. SKIN: Acyanotic, warm, dry, without rashes EXTREMITIES: Without deformity or tenderness with 1-2+ edema of the lower extremities. NEUROLOGICAL: No focal deficits. No aphasia. No facial droop or slurred speech. Tremulous EK bpm normal sinus rhythm. No clear right bundle branch block. Some baseline tremor is present. No clear acute ST segment elevation or depression. QTc 474. CONTINUOUS CARDIAC MONITORING: was ordered and showed a heart rate of 60s to 90s bpm in sinus rhythm with significant baseline artifact and occasional PVC GCS 15. Patient's laboratory studies and imaging reviewed. Differential includes Fracture, dislocation, contusion, intra-abdominal, pneumothorax, intrathoracic, intracranial, neurologic, compartment syndrome, rhabdomyolysis, as well as other pathologies. IMPRESSION/MEDICAL DECISION MAKING: Patient without significant clinical evidence of compartment syndrome or significant skin breakdown. Does complain of a headache and some slight neck pain as well as low back pain. Given the trauma imaging was obtained. CK sent to help rule out rhabdomyolysis given prolonged downtime. Given some IV fluid. Does have some baseline tremor which is present. Daughter later arrives at bedside. States that she does her pills and came to check on her and she could not answer the door thus called the police. Has not seen her in [address] imaging per radiology shows age-indeterminate L1 compression fracture without significant traumatic injuries otherwise noted. CT report does question possible colitis given some prominence of the colon but likely just under distended due to her lack of intake and I doubt this represents colitis. CT of the head and cervical spine without evidence of acute intracranial bleed or acute cervical spine injury noted or fracture. Ordered some IV Tylenol initially for pain control of her lower back. Mild hypokalemia of 3 noted without significant renal dysfunction or other severe electrolyte abnormality noted. No significant transaminitis or lipase elevation concerning for hepatitis or pancreatitis. No CK elevation and doubt rhabdomyolysis. Discussed with daughter and patient. Given her poor ambulatory state and deconditioning after being on the floor for further observation and possible rehab placement for the patient may be beneficial. Patient and family in agreement. Hospitalist contacted. DIAGNOSIS: Fall, ambulatory dysfunction, L1 compression fracture DISPOSITION: Hospitalist will evaluate Patient was agreeable with this plan. Past Med/Surg History Medical History Alzheimer's dementia Alzheimer's disease, unspecified Dementia Essential (primary) hypertension Essential tremor Essential tremor Fatigue Hypokalemia Hypomagnesemia Paresthesia Urinary frequency Surgical History History of cholecystectomy Family History Mother Alzheimer disease Cardiac disorder Father Lung cancer Sister Asthma Social History Smoking Status: Never smoker Preferred Language: [place]an Feels Safe at Home: Yes Allergies Allergies Allergy/AdvReac Type Severity Reaction Status Date / Time gabapentin AdvReac Diarrhea Verified 08/17/23 19:41 propranolol AdvReac Diarrhea Verified 08/17/23 19:41 Home Meds Home Medications Medication Instructions Recorded Confirmed fluticasone propionate 220 1 puff inhalation UD 05/08/19 08/17/23 mcg/actuation HFA aerosol inhaler levothyroxine 112 mcg tablet 112 mcg PO DAILY 05/08/19 08/17/23 montelukast 10 mg tablet 10 mg PO DAILY 05/08/19 08/17/23 multivitamin (Daily Multi-Vitamin 1 tab PO DAILY 05/08/19 08/17/23 tablet) potassium chloride 10 mEq 30 meq PO DAILY 05/08/19 08/17/23 tablet,extended release venlafaxine 75 mg capsule,extended 75 mg PO DAILY 05/08/19 08/17/23 release 24 hr metformin 500 mg tablet 500 mg PO BIDM 09/24/19 08/17/23 pregabalin 25 mg capsule 25 mg PO BID 09/20/22 08/17/23 alendronate 10 mg tablet 10 mg PO QAM 08/17/23 08/17/23 aspirin 81 mg tablet,delayed 81 mg PO DAILY 08/17/23 08/17/23 release calcium carbonate 600 mg-vitamin 1 tab PO DAILY 08/17/23 08/17/23 D3 20 mcg (800 unit) chewable tablet (Caltrate 600 plus D) galantamine 12 mg tablet 12 mg PO AMHS 08/17/23 08/17/23 melatonin 5 mg tablet 5 mg PO HS 08/17/23 08/17/23 metoprolol succinate 25 mg 37.5 mg PO QAM 08/17/23 08/17/23 tablet,extended release 24 hr polyethylene glycol 3350 17 gram 17 g PO DAILY 08/17/23 08/17/23 oral powder packet (Miralax) primidone 50 mg tablet 50 mg PO TID 08/17/23 08/17/23 venlafaxine 75 mg capsule,extended 75 mg PO DAILY 08/17/23 08/17/23 release 24 hr Previous Rx's Medication Instructions Recorded mecobalamin (vitamin B12) 1,000 1,000 mcg sublingual DAILY #30 tabs 02/21/22 mcg disintegrating tablet,sublingual memantine 10 mg tablet 10 mg PO BID 90 days #180 tabs 09/16/22 Results & Data (ED) Vital Signs Vital Signs - 24 hr 08/17/23 17:59 08/17/23 17:59 08/17/23 21:00 Temperature 36.8 C Temperature Source Oral Pulse Rate 69 69 Pulse Rate [Apical] 77 Pulse Rhythm Irregular Respiratory Rate 24 24 15 Respiratory Effort / Characteristics Non-Labored Spontaneous Respiratory Depth Normal Blood Pressure 172/98 H Blood Pressure [Left Arm] 180/92 H Blood Pressure Mean 122 Blood Pressure Mean [Left Arm] 121 Pulse Oximetry 96 96 96 Oxygen Delivery Method Room Air Room Air Room Air Sepsis Recent Fever Within 48 Hours No Sepsis New/Unexplained Change in Mental Status N/A Sepsis Action Taken by Nursing No Action Required 08/17/23 21:38 Temperature Temperature Source Pulse Rate 73 Pulse Rate [Apical] Pulse Rhythm Respiratory Rate Respiratory Effort / Characteristics Respiratory Depth Blood Pressure Blood Pressure [Left Arm] Blood Pressure Mean Blood Pressure Mean [Left Arm] Pulse Oximetry Oxygen Delivery Method Sepsis Recent Fever Within 48 Hours Sepsis New/Unexplained Change in Mental Status Sepsis Action Taken by Nursing Laboratory Data 08/17/23 20:08 08/17/23 20:08 Lab Results 08/17/23 08/17/23 Range/Units 20:08 21:03 WBC 10.71 (4.8-10.8) K/ul RBC 3.99 L (4.20-5.40) M/uL Hgb 12.8 (12.0-16.0) g/dl Hct 38.1 (37.0-47.0) % MCV 95.5 (80.0-100.0) fL MCH 32.1 (25.0-34.0) pg MCHC 33.6 (32.0-36.0) g/dL RDW Std Deviation 47.1 H (36.4-46.3) fL RDW Coeff of Josh 13.4 (11.5-14.5) % Plt Count 260 (130-400) K/uL MPV 10.4 (9.4-12.4) fL Immature Gran % (Auto) 0.5 % Neut % (Auto) 82.1 % Lymph % (Auto) 12.9 % [place] % (Auto) 3.7 % Eos % (Auto) 0.5 % Baso % (Auto) 0.3 % Neut # (Auto) 8.80 H (1.40-6.50) K/uL Lymph # (Auto) 1.38 (1.20-3.40) K/uL [place] # (Auto) 0.40 (0.11-0.59) K/uL Eos # (Auto) 0.05 (0.00-0.50) K/uL Baso # (Auto) 0.03 (0.00-0.20) K/uL Immature Gran # (Auto) 0.05 (0.01-0.20) K/uL PT 12.2 H (9.0-12.0) Seconds INR 1.1 (0.9-1.1) Sodium 144 (136-145) mmol/L Potassium 3.0 L (3.5-5.1) mmol/L Chloride 101 (98-107) mmol/L Carbon Dioxide 28 (21-32) mmol/L Anion Gap 15 H (3-11) BUN 23 (6-23) mg/dl Creatinine 0.58 L (0.6-1.2) mg/dl Est Cr Clr Drug Dosing 116.1 ml/min Est GFR ( Amer) 109.8 ml/min Est GFR (Non-Af Amer) 94.7 ml/min BUN/Creatinine Ratio 39.7 H (10-20) Glucose 102 H (70-99(Fasting)) mg/dl Calcium 8.2 L (8.6-10.3) mg/dl Total Bilirubin 1.1 H (0.2-1.0) mg/dl AST 35 (13-39) U/L ALT 20 (7-52) U/L Alkaline Phosphatase 75 (34-104) U/L Total Creatine Kinase 108 (26-192) U/L Troponin I High Sens 9.7 (0-14) pg/ml Total Protein 7.4 (6.0-8.3) gm/dl Albumin 4.0 (3.4-5.0) gm/dl Globulin 3.4 (2.5-4.0) gm/dl Albumin/Globulin Ratio 1.2 (0.9-2) Lipase 9 L (11-82) U/L SARS-CoV-2, RNA, NAAT NEGATIVE (NEGATIVE) Administered Medications Discontinued Medications Sodium Chloride (Nss) 500 mls @ 999 mls/hr IV .Q31M ONE Stop: 08/17/23 18:25 Last Admin: 08/17/23 20:39 Dose: 999 mls/hr Documented By: PAWAN Acetaminophen (Ofirmev) 1,000 mg in 100 mls @ 400 mls/hr IV NOW STA Stop: 08/17/23 20:55 Last Admin: 08/17/23 20:54 Dose: 400 mls/hr Documented By: PAWAN Imaging Data Radiologist's Impression: Abdomen/Pelvis CT 08/17/23 17:53 Exam(s): CT ABDOMEN + PELVIS Without Contrast EXAM: CT Abdomen and Pelvis Without Intravenous Contrast CLINICAL HISTORY: Reason for exam: fall, low back pain. TECHNIQUE: Axial computed tomography images of the abdomen and pelvis without intravenous contrast. CTDI is 27.62 mGy and DLP is 1333.87 mGy-cm. Automated exposure control was utilized for the study. A dose lowering technique was utilized adhering to the principles of ALARA. COMPARISON: CT abdomen/pelvis on 11/10/2022 FINDINGS: Lung bases: Unremarkable. No mass. No consolidation. ABDOMEN: Liver: Hepatomegaly. Gallbladder and bile ducts: Prior cholecystectomy. No ductal dilation. Pancreas: Unremarkable. No ductal dilation. Spleen: Unremarkable. No splenomegaly. Adrenals: Nonspecific left adrenal nodule. Kidneys and ureters: Unremarkable. No hydronephrosis or stone. Stomach and bowel: Mild prominence of the linares of the colon may be secondary to underdistention. Colitis is not exited. Evaluation of the stomach is limited by underdistention. PELVIS: Appendix: Normal appendix. Bladder: Unremarkable. No stones. Reproductive: Unremarkable as visualized. ABDOMEN and PELVIS: Intraperitoneal space: Unremarkable. No free air. No significant fluid collection. Bones/joints: Age-indeterminate severe endplate compression deformity of L1 with small amount of gas underlying the fracture. Degenerative changes of the spine. Probable small bone islands in the pelvic bones. No dislocation. Soft tissues: Injection granulomas in the gluteal soft tissues. Small fat-containing umbilical hernia. Vasculature: Phleboliths in the pelvis. Atherosclerotic changes of the vasculature. No aortic aneurysm. Lymph nodes: Unremarkable. No enlarged lymph nodes. IMPRESSION: 1. Mild prominence of the linares of the colon may be secondary to underdistention. Colitis is not exited. 2. Age-indeterminate severe endplate compression deformity of L1 with small amount of gas underlying the fracture. 3. Nonspecific left adrenal nodule. Electronically signed by: Noble Triplett M.D. 08/17/23 20:[address] 08/17/23 17:53 Exam(s): CT C SPINE EXAM: CT Cervical Spine Without Intravenous Contrast CLINICAL HISTORY: Reason for exam: fall. TECHNIQUE: Axial computed tomography images of the cervical spine without intravenous contrast. CTDI is 26.53 mGy and DLP is 560.8 mGy-cm. Automated exposure control was utilized for the study. A dose lowering technique was utilized adhering to the principles of ALARA. COMPARISON: None FINDINGS: Bones: Normal alignment. No acute fracture or bony lesion. Disc spaces: No subluxation. Degenerative changes of the spine. Soft tissues: Normal. Other: Atherosclerotic changes of the vasculature. IMPRESSION: No acute traumatic abnormality. Electronically signed by: Noble Triplett M.D. 08/17/23 20:[address] 08/17/23 17:53 Exam(s): CT CHEST Without Contrast EXAM: CT Chest Without Intravenous Contrast CLINICAL HISTORY: Reason for exam: fall. TECHNIQUE: Axial computed tomography images of the chest without intravenous contrast. CTDI is 27.94 mGy and DLP is 888.35 mGy-cm. Automated exposure control was utilized for the study. A dose lowering technique was utilized adhering to the principles of ALARA. COMPARISON: None FINDINGS: Lungs: Unremarkable. No mass. No consolidation. Pleural space: Unremarkable. No pneumothorax. No significant effusion. Heart: Mild cardiomegaly. Coronary artery calcifications. No significant pericardial effusion. Bones/joints: Degenerative changes of the spine. Probably chronic superior endplate compression deformity partially seen in the L1 vertebral body. No dislocation. Soft tissues: Nonspecific 1.5 cm nodule in the right breast. 8 mm nodule in the left breast. Vasculature: Atherosclerotic changes in the aorta. Ectasia of the ascending thoracic aorta measuring 4.4 cm in diameter. No thoracic aortic aneurysm. Lymph nodes: Nonspecific probable small right cardiophrenic lymph node. Gallbladder and bile ducts: Cholecystectomy change. Adrenals: Nonspecific left adrenal nodule. IMPRESSION: No acute findings in the chest. Electronically signed by: Noble Triplett M.D. 08/17/23 20:[address] 08/17/23 17:53 Exam(s): CT HEAD Without Contrast EXAM: CT Head Without Intravenous Contrast CLINICAL HISTORY: Reason for exam: fall, headache. TECHNIQUE: Axial computed tomography images of the head/brain without intravenous contrast. CTDI is 37.42 mGy and DLP is 624.41 mGy-cm. Automated exposure control was utilized for the study. A dose lowering technique was utilized adhering to the principles of ALARA. COMPARISON: None FINDINGS: Brain: No acute infarct or hemorrhage identified. No extra-axial fluid collection. No mass effect or midline shift. Scattered areas of hypoattenuation in the supratentorial white matter likely represent chronic small vessel ischemic changes. Ventricles and sulci: Prominence of the ventricles and sulci is likely secondary to cerebral volume loss. Bones: Hyperostosis frontalis interna. No bony lesion or acute fracture. Subcutaneous tissues: Normal. Sinuses: Normal. No air-fluid levels or mucosal thickening. Mastoid air cells: Normal. Orbits: Bilateral lens implants. Other: Atherosclerotic calcifications in the intracranial vasculature. IMPRESSION: 1. No acute intracranial abnormality. 2. Chronic small vessel ischemic changes and cerebral volume loss. Electronically signed by: Noble Triplett M.D. 08/17/23 20:14 PM Discharge Plan Visit Data Chief Complaint: Fall Stated Complaint: NECK/BACK PAIN, FELL ON [place] ED Provider: Hero Hernández Discharge Problem: Fall, Ambulatory dysfunction, Closed compression fracture of body of L1 vertebra Patient Disposition: Being Evaluated by Hospitalist Forms Stand Alone Forms: My [facility] Prescriptions Prescriptions: No Action mecobalamin (vitamin B12) 1,000 mcg tablet,disintegrating 1,000 mcg sublingual DAILY Qty: 30 5RF Rx Instructions: Place 1 tablet under the tongue and allow to dissolve for at least 30 secs before swallowing. memantine 10 mg tablet 10 mg PO BID 90 Days Qty: 180 3RF pregabalin 25 mg capsule 25 mg PO BID multivitamin [Daily Multi-Vitamin] tablet 1 tab PO DAILY venlafaxine 75 mg capsule,extended release 24hr 75 mg PO DAILY levothyroxine 112 mcg tablet 112 mcg PO DAILY montelukast 10 mg tablet 10 mg PO DAILY potassium chloride 10 mEq tablet extended release 30 meq PO DAILY Flovent HFA 220 mcg/actuation HFA aerosol inhaler 1 puff inhalation UD metformin 500 mg tablet 500 mg PO BIDM alendronate 10 mg tablet 10 mg PO QAM venlafaxine 75 mg capsule,extended release 24hr 75 mg PO DAILY polyethylene glycol 3350 [Miralax] 17 gram Powder In Packet 17 g PO DAILY aspirin [Aspir-Low] 81 mg Tablet,Delayed Release (Dr/Ec) 81 mg PO DAILY metoprolol succinate 25 mg tablet extended release 24 hr 37.5 mg PO QAM melatonin 5 mg Tablet 5 mg PO HS Caltrate 600 plus D 600 mg-20 mcg (800 unit) Tablet,Chewable 1 tab PO DAILY primidone 50 mg tablet 50 mg PO TID Rx Instructions: TAKE ONE TABLET BY MOUTH 3 TIMES A DAY galantamine 12 mg tablet 12 mg PO AMHS Rx Instructions: TAKE ONE TABLET BY MOUTH 2 TIMES A DAY Referrals Referrals: Kimberlyn Brennan DO [Primary Care Provider] -
--- NOTE | 2023-08-17 20:07 | CT Scan Report ---
Exam(s): CT CHEST Without Contrast EXAM: CT Chest Without Intravenous Contrast CLINICAL HISTORY: Reason for exam: fall. TECHNIQUE: Axial computed tomography images of the chest without intravenous contrast. CTDI is 27.94 mGy and DLP is 888.35 mGy-cm. Automated exposure control was utilized for the study. A dose lowering technique was utilized adhering to the principles of ALARA. COMPARISON: None FINDINGS: Lungs: Unremarkable. No mass. No consolidation. Pleural space: Unremarkable. No pneumothorax. No significant effusion. Heart: Mild cardiomegaly. Coronary artery calcifications. No significant pericardial effusion. Bones/joints: Degenerative changes of the spine. Probably chronic superior endplate compression deformity partially seen in the L1 vertebral body. No dislocation. Soft tissues: Nonspecific 1.5 cm nodule in the right breast. 8 mm nodule in the left breast. Vasculature: Atherosclerotic changes in the aorta. Ectasia of the ascending thoracic aorta measuring 4.4 cm in diameter. No thoracic aortic aneurysm. Lymph nodes: Nonspecific probable small right cardiophrenic lymph node. Gallbladder and bile ducts: Cholecystectomy change. Adrenals: Nonspecific left adrenal nodule. IMPRESSION: No acute findings in the chest. Electronically signed by: Noble Triplett M.D. 08/17/23 20:07 PM
--- NOTE | 2023-08-17 20:11 | CT Scan Report ---
Exam(s): CT ABDOMEN + PELVIS Without Contrast EXAM: CT Abdomen and Pelvis Without Intravenous Contrast CLINICAL HISTORY: Reason for exam: fall, low back pain. TECHNIQUE: Axial computed tomography images of the abdomen and pelvis without intravenous contrast. CTDI is 27.62 mGy and DLP is 1333.87 mGy-cm. Automated exposure control was utilized for the study. A dose lowering technique was utilized adhering to the principles of ALARA. COMPARISON: CT abdomen/pelvis on 11/10/2022 FINDINGS: Lung bases: Unremarkable. No mass. No consolidation. ABDOMEN: Liver: Hepatomegaly. Gallbladder and bile ducts: Prior cholecystectomy. No ductal dilation. Pancreas: Unremarkable. No ductal dilation. Spleen: Unremarkable. No splenomegaly. Adrenals: Nonspecific left adrenal nodule. Kidneys and ureters: Unremarkable. No hydronephrosis or stone. Stomach and bowel: Mild prominence of the linares of the colon may be secondary to underdistention. Colitis is not exited. Evaluation of the stomach is limited by underdistention. PELVIS: Appendix: Normal appendix. Bladder: Unremarkable. No stones. Reproductive: Unremarkable as visualized. ABDOMEN and PELVIS: Intraperitoneal space: Unremarkable. No free air. No significant fluid collection. Bones/joints: Age-indeterminate severe endplate compression deformity of L1 with small amount of gas underlying the fracture. Degenerative changes of the spine. Probable small bone islands in the pelvic bones. No dislocation. Soft tissues: Injection granulomas in the gluteal soft tissues. Small fat-containing umbilical hernia. Vasculature: Phleboliths in the pelvis. Atherosclerotic changes of the vasculature. No aortic aneurysm. Lymph nodes: Unremarkable. No enlarged lymph nodes. IMPRESSION: 1. Mild prominence of the linares of the colon may be secondary to underdistention. Colitis is not exited. 2. Age-indeterminate severe endplate compression deformity of L1 with small amount of gas underlying the fracture. 3. Nonspecific left adrenal nodule. Electronically signed by: Noble Triplett M.D. 08/17/23 20:10 PM
--- NOTE | 2023-08-17 20:15 | CT Scan Report ---
Exam(s): CT HEAD Without Contrast EXAM: CT Head Without Intravenous Contrast CLINICAL HISTORY: Reason for exam: fall, headache. TECHNIQUE: Axial computed tomography images of the head/brain without intravenous contrast. CTDI is 37.42 mGy and DLP is 624.41 mGy-cm. Automated exposure control was utilized for the study. A dose lowering technique was utilized adhering to the principles of ALARA. COMPARISON: None FINDINGS: Brain: No acute infarct or hemorrhage identified. No extra-axial fluid collection. No mass effect or midline shift. Scattered areas of hypoattenuation in the supratentorial white matter likely represent chronic small vessel ischemic changes. Ventricles and sulci: Prominence of the ventricles and sulci is likely secondary to cerebral volume loss. Bones: Hyperostosis frontalis interna. No bony lesion or acute fracture. Subcutaneous tissues: Normal. Sinuses: Normal. No air-fluid levels or mucosal thickening. Mastoid air cells: Normal. Orbits: Bilateral lens implants. Other: Atherosclerotic calcifications in the intracranial vasculature. IMPRESSION: 1. No acute intracranial abnormality. 2. Chronic small vessel ischemic changes and cerebral volume loss. Electronically signed by: Noble Triplett M.D. 08/17/23 20:14 PM
--- NOTE | 2023-08-17 20:16 | CT Scan Report ---
Exam(s): CT C SPINE EXAM: CT Cervical Spine Without Intravenous Contrast CLINICAL HISTORY: Reason for exam: fall. TECHNIQUE: Axial computed tomography images of the cervical spine without intravenous contrast. CTDI is 26.53 mGy and DLP is 560.8 mGy-cm. Automated exposure control was utilized for the study. A dose lowering technique was utilized adhering to the principles of ALARA. COMPARISON: None FINDINGS: Bones: Normal alignment. No acute fracture or bony lesion. Disc spaces: No subluxation. Degenerative changes of the spine. Soft tissues: Normal. Other: Atherosclerotic changes of the vasculature. IMPRESSION: No acute traumatic abnormality. Electronically signed by: Noble Triplett M.D. 08/17/23 20:16 PM
[2023-08-17 20:30] LABS: Basophils # (auto) 0.03 K/uL (0.00-0.20); Basophils % (auto) 0.3 %; Eosinophils # (auto) 0.05 K/uL (0.00-0.50); Eosinophils % (auto) 0.5 %; Hematocrit (blood only) 38.1 % (37.0-47.0); Hemoglobin 12.8 g/dl (12.0-16.0); Immature Granulocytes # (auto) 0.05 K/uL (0.01-0.20); Immature Granulocytes % (auto) 0.5 %; Lymphocytes # (auto) 1.38 K/uL (1.20-3.40); Lymphocytes % (auto) 12.9 %; Mean Corpuscular Hemoglobin 32.1 pg (25.0-34.0); Mean Corpuscular Hgb Conc 33.6 g/dL (32.0-36.0); Mean Corpuscular Volume 95.5 fL (80.0-100.0); Mean Platelet Volume 10.4 fL (9.4-12.4); Monocytes % (auto) 3.7 %; Neutrophils % (auto) 82.1 %; Platelet Count 260 K/uL (130-400); RDW Coefficient of Variation 13.4 % (11.5-14.5); RDW Standard Deviation 47.1 fL (36.4-46.3); Red Blood Count 3.99 M/uL (4.20-5.40); White Blood Count 10.71 K/ul (4.8-10.8)
[2023-08-17] MEDS ORDERED: ACETAMINOPHEN 1,000 MG/100 ML VIAL IV STA (20:41)
[2023-08-17 20:42] LABS: Albumin Globulin Ratio 1.2 (0.9-2); BUN Creatinine Ratio 39.7 (10-20); Bilirubin,Total 1.1 mg/dl (0.2-1.0); Calcium 8.2 mg/dl (8.6-10.3); Creatinine Clr Calc Pharmacy 116.1 ml/min; Est GFR (African American) 109.8 ml/min; Est GFR (Non-African American) 94.7 ml/min; Globulin 3.4 gm/dl (2.5-4.0); Total Protein 7.4 gm/dl (6.0-8.3)
[2023-08-17 20:48] LABS: Troponin I High Sensitivity 9.7 pg/ml (0-14)
[2023-08-17 20:52] LABS: INR 1.1 (0.9-1.1); Prothrombin Time 12.2 Seconds (9.0-12.0)
[2023-08-17] MEDS ORDERED: POTASSIUM CHLORIDE CRTAB 20 MEQ TABCR PO STA (21:40)
--- NOTE | 2023-08-17 21:46 | History & Physical Report ---
Date of Service August 17, 2023 Assessment & Plan (1) Fall: Plan: 68-year-old female with past medical history significant for hyperlipidemia, type 2 diabetes, diabetic neuropathy, hypothyroidism, mild persistent asthma, hypertension, morbid obesity, early onset Alzheimer's dementia without behavioral disturbance, generalized anxiety disorder, obsessive-compulsive disorder , tremors who lives alone at home was brought in because of fall 3 days ago and not able to get up and was laying on the floor. Patient is currently alert and oriented. Patient states she was looking at the window and when she turned she fell down. Thinks she hit her head but no loss of consciousness. And she could not able to get up. Her phone was very far away. She cannot reach the phone. Seems today Police were called by family for welfare check as family not heard from her for last few days. Patient can tell her name. Knows her date of . Knows that she is in [facility]. Knows today is . Can tell the month and year. Knows the county. Knows the president. Patient says she had a headache earlier but that got resolved. She has some back pain. Has some cough and runny nose. No sore throat. No chest pain or shortness of breath. Has mild abdominal discomfort. States she is constipated. Seems wetting herself when she was on the floor. Currently hemodynamically stable. Says she has a walker but states she does not use it. Fall Ambulatory dysfunction Was laying on the floor for last 3 days not able to get up CPK levels are okay Except for hypokalemia rest of the Labs seems okay Imaging studies shows L1 compression fracture age indeterminate We will admit to medical floor IV fluids Social service to help with discharge planning L1 compression fracture Pain control Orthospine consult PT OT when stable Hypokalemia We will replace Continue home potassium supplements Follow labs Diabetes Hold metformin Insulin sliding scale We will monitor Early onset Alzheimer's dementia Seems alert and oriented currently Continue memantine and galantamine Monitor for delirium Tremors On primidone Hypertension On metoprolol succinate We will monitor Mild persistent asthma Seems stable Continue home inhalers Generalized anxiety disorder On venlafaxine Hypothyroidism On Synthyroid DVT prophylaxis Lovenox Disposition Medical floor Full code History of Present Illness Chief Complaint: Fall Primary Care Provider: Kimberlyn Brennan DO 68-year-old female with past medical history significant for hyperlipidemia, type 2 diabetes, diabetic neuropathy, hypothyroidism, mild persistent asthma, hypertension, morbid obesity, early onset Alzheimer's dementia without behavioral disturbance, generalized anxiety disorder, obsessive-compulsive disorder , tremors who lives alone at home was brought in because of fall 3 days ago and not able to get up and was laying on the floor. Patient is currently alert and oriented. Patient states she was looking at the window and when she turned she fell down. Thinks she hit her head but no loss of consciousness. And she could not able to get up. Her phone was very far away. She cannot reach the phone. Seems today Police were called by family for welfare check as family not heard from her for last few days. Patient can tell her name. Knows her date of . Knows that she is in [facility]. Knows today is . Can tell the month and year. Knows the county. Knows the president. Patient says she had a headache earlier but that got resolved. She has some back pain. Has some cough and runny nose. No sore throat. No chest pain or shortness of breath. Has mild abdominal discomfort. States she is constipated. Seems wetting herself when she was on the floor. Currently hemodynamically stable. Says she has a walker but states she does not use it. Past medical history. As mentioned above Past surgical history. Bilateral cataracts. Cholecystectomy Social history. Lives alone. No smoking. No alcohol use. No drug use. Family history. No family history on file. Allergies Allergy/AdvReac Type Severity Reaction Status Date / Time gabapentin AdvReac Diarrhea Verified 08/17/23 19:41 propranolol AdvReac Diarrhea Verified 08/17/23 19:41 Home Medications Medication Instructions Recorded Confirmed Type fluticasone propionate 220 1 puff inhalation UD 05/08/19 08/17/23 History mcg/actuation HFA aerosol inhaler levothyroxine 112 mcg tablet 112 mcg PO DAILY 05/08/19 08/17/23 History montelukast 10 mg tablet 10 mg PO DAILY 05/08/19 08/17/23 History multivitamin (Daily Multi-Vitamin 1 tab PO DAILY 05/08/19 08/17/23 History tablet) potassium chloride 10 mEq 30 meq PO DAILY 05/08/19 08/17/23 History tablet,extended release metformin 500 mg tablet 500 mg PO BIDM 09/24/19 08/17/23 History mecobalamin (vitamin B12) 1,000 1,000 mcg sublingual DAILY #30 tabs 02/21/22 08/17/23 Rx mcg disintegrating tablet,sublingual memantine 10 mg tablet 10 mg PO BID 90 days #180 tabs 09/16/22 08/17/23 Rx pregabalin 25 mg capsule 25 mg PO BID 09/20/22 08/17/23 History alendronate 10 mg tablet 10 mg PO QAM 08/17/23 08/17/23 History aspirin 81 mg tablet,delayed 81 mg PO DAILY 08/17/23 08/17/23 History release calcium carbonate 600 mg-vitamin 1 tab PO DAILY 08/17/23 08/17/23 History D3 20 mcg (800 unit) chewable tablet (Caltrate 600 plus D) galantamine 12 mg tablet 12 mg PO AMHS 08/17/23 08/17/23 History melatonin 5 mg tablet 5 mg PO HS 08/17/23 08/17/23 History metoprolol succinate 25 mg 37.5 mg PO QAM 08/17/23 08/17/23 History tablet,extended release 24 hr polyethylene glycol 3350 17 gram 17 g PO DAILY 08/17/23 08/17/23 History oral powder packet (Miralax) primidone 50 mg tablet 50 mg PO TID 08/17/23 08/17/23 History venlafaxine 75 mg capsule,extended 75 mg PO DAILY 08/17/23 08/17/23 History release 24 hr Past Med/Surg History Medical History Alzheimer's dementia Alzheimer's disease, unspecified Dementia Essential (primary) hypertension Essential tremor Essential tremor Fatigue Hypokalemia Hypomagnesemia Paresthesia Urinary frequency Surgical History History of cholecystectomy Family History Mother Alzheimer disease Cardiac disorder Father Lung cancer Sister Asthma Social History Smoking Status: Never smoker Second Hand Exposure: No; Do You Dip or Chew Tobacco: No; Hx Alcohol Use: No Hx Substance Use: No Preferred Language: Irish Communication Ability: Effective Direct Marketing Specialist Required: No Beliefs That Will Affect Care: None Current Living Situation: Alone Current Living Situation Comment: daughter and son check in w/ pt and assist w/ home care needs and meds Feels Safe at Home: Yes Safety Concerns: Feels Safe At This Time Assistive Devices: Walker Review of Systems Review of Systems: All systems reviewed & are unremarkable except as noted in HPI & below Physical Exam Physical Exam: General- Not in distress Head- atraumatic Eyes- PERRL. ENT- oropharynx clear Neck- supple, no JVD. Lungs- clear to auscultation no wheezing or crackles. Heart- regular rhythm; no murmur, no gallop, Abdomen- normal bowel sounds, soft, nontender, no distension Extremities- no pretibial edema, no erythema seen. Neuro- alert, oriented x 3; Tremors present.PERRL, no facial palsy; no dysarthria; obeys commands ,moves extremities. Results & Data Results & Data Vital Signs (Past 12 Hours) Vital Signs Temp Pulse Pulse Resp BP BP Pulse Ox 08/17/23 21:38 73 08/17/23 21:00 77 15 180/92 H 96 08/17/23 17:59 69 24 96 08/17/23 17:59 36.8 C 69 24 172/98 H 96 O2 Del Method 08/17/23 21:38 08/17/23 21:00 Room Air 08/17/23 17:59 Room Air 08/17/23 17:59 Room Air Diagnostic Findings Laboratory Results WBC 10.71 K/ul (4.8-10.8) 08/17/23 20:08 RBC 3.99 M/uL (4.20-5.40) L 08/17/23 20:08 Hgb 12.8 g/dl (12.0-16.0) 08/17/23 20:08 Hct 38.1 % (37.0-47.0) 08/17/23 20:08 MCV 95.5 fL (80.0-100.0) 08/17/23 20:08 MCH 32.1 pg (25.0-34.0) 08/17/23 20:08 MCHC 33.6 g/dL (32.0-36.0) 08/17/23 20:08 RDW Std Deviation 47.1 fL (36.4-46.3) H 08/17/23 20:08 RDW Coeff of Josh 13.4 % (11.5-14.5) 08/17/23 20:08 Plt Count 260 K/uL (130-400) 08/17/23 20:08 MPV 10.4 fL (9.4-12.4) 08/17/23 20:08 Immature Gran % (Auto) 0.5 % 08/17/23 20:08 Neut % (Auto) 82.1 % 08/17/23 20:08 Lymph % (Auto) 12.9 % 08/17/23 20:08 [place] % (Auto) 3.7 % 08/17/23 20:08 Eos % (Auto) 0.5 % 08/17/23 20:08 Baso % (Auto) 0.3 % 08/17/23 20:08 Neut # (Auto) 8.80 K/uL (1.40-6.50) H 08/17/23 20:08 Lymph # (Auto) 1.38 K/uL (1.20-3.40) 08/17/23 20:08 [place] # (Auto) 0.40 K/uL (0.11-0.59) 08/17/23 20:08 Eos # (Auto) 0.05 K/uL (0.00-0.50) 08/17/23 20:08 Baso # (Auto) 0.03 K/uL (0.00-0.20) 08/17/23 20:08 Immature Gran # (Auto) 0.05 K/uL (0.01-0.20) 08/17/23 20:08 PT 12.2 Seconds (9.0-12.0) H 08/17/23 20:08 INR 1.1 (0.9-1.1) 08/17/23 20:08 Sodium 144 mmol/L (136-145) 08/17/23 20:08 Potassium 3.0 mmol/L (3.5-5.1) L 08/17/23 20:08 Chloride 101 mmol/L (98-107) 08/17/23 20:08 Carbon Dioxide 28 mmol/L (21-32) 08/17/23 20:08 Anion Gap 15 (3-11) H 08/17/23 20:08 BUN 23 mg/dl (6-23) 08/17/23 20:08 Creatinine 0.58 mg/dl (0.6-1.2) L 08/17/23 20:08 Est Cr Clr Drug Dosing 116.1 ml/min 08/17/23 20:08 Est GFR ( Amer) 109.8 ml/min 08/17/23 20:08 Est GFR (Non-Af Amer) 94.7 ml/min 08/17/23 20:08 BUN/Creatinine Ratio 39.7 (10-20) H 08/17/23 20:08 Glucose 102 mg/dl (70-99(Fasting)) H 08/17/23 20:08 Calcium 8.2 mg/dl (8.6-10.3) L 08/17/23 20:08 Total Bilirubin 1.1 mg/dl (0.2-1.0) H 08/17/23 20:08 AST 35 U/L (13-39) 08/17/23 20:08 ALT 20 U/L (7-52) 08/17/23 20:08 Alkaline Phosphatase 75 U/L (34-104) 08/17/23 20:08 Total Creatine Kinase 108 U/L (26-192) 08/17/23 20:08 Troponin I High Sens 9.7 pg/ml (0-14) 08/17/23 20:08 Total Protein 7.4 gm/dl (6.0-8.3) 08/17/23 20:08 Albumin 4.0 gm/dl (3.4-5.0) 08/17/23 20:08 Globulin 3.4 gm/dl (2.5-4.0) 08/17/23 20:08 Albumin/Globulin Ratio 1.2 (0.9-2) 08/17/23 20:08 Lipase 9 U/L (11-82) L 08/17/23 20:08 SARS-CoV-2, RNA, NAAT NEGATIVE (NEGATIVE) 08/17/23 21:03 Impressions Abdomen/Pelvis CT 08/17/23 17:53 Exam(s): CT ABDOMEN + PELVIS Without Contrast EXAM: CT Abdomen and Pelvis Without Intravenous Contrast CLINICAL HISTORY: Reason for exam: fall, low back pain. TECHNIQUE: Axial computed tomography images of the abdomen and pelvis without intravenous contrast. CTDI is 27.62 mGy and DLP is 1333.87 mGy-cm. Automated exposure control was utilized for the study. A dose lowering technique was utilized adhering to the principles of ALARA. COMPARISON: CT abdomen/pelvis on 11/10/2022 FINDINGS: Lung bases: Unremarkable. No mass. No consolidation. ABDOMEN: Liver: Hepatomegaly. Gallbladder and bile ducts: Prior cholecystectomy. No ductal dilation. Pancreas: Unremarkable. No ductal dilation. Spleen: Unremarkable. No splenomegaly. Adrenals: Nonspecific left adrenal nodule. Kidneys and ureters: Unremarkable. No hydronephrosis or stone. Stomach and bowel: Mild prominence of the linares of the colon may be secondary to underdistention. Colitis is not exited. Evaluation of the stomach is limited by underdistention. PELVIS: Appendix: Normal appendix. Bladder: Unremarkable. No stones. Reproductive: Unremarkable as visualized. ABDOMEN and PELVIS: Intraperitoneal space: Unremarkable. No free air. No significant fluid collection. Bones/joints: Age-indeterminate severe endplate compression deformity of L1 with small amount of gas underlying the fracture. Degenerative changes of the spine. Probable small bone islands in the pelvic bones. No dislocation. Soft tissues: Injection granulomas in the gluteal soft tissues. Small fat-containing umbilical hernia. Vasculature: Phleboliths in the pelvis. Atherosclerotic changes of the vasculature. No aortic aneurysm. Lymph nodes: Unremarkable. No enlarged lymph nodes. IMPRESSION: 1. Mild prominence of the linares of the colon may be secondary to underdistention. Colitis is not exited. 2. Age-indeterminate severe endplate compression deformity of L1 with small amount of gas underlying the fracture. 3. Nonspecific left adrenal nodule. Electronically signed by: Noble Triplett M.D. 08/17/23 20:[address] 08/17/23 17:53 Exam(s): CT C SPINE EXAM: CT Cervical Spine Without Intravenous Contrast CLINICAL HISTORY: Reason for exam: fall. TECHNIQUE: Axial computed tomography images of the cervical spine without intravenous contrast. CTDI is 26.53 mGy and DLP is 560.8 mGy-cm. Automated exposure control was utilized for the study. A dose lowering technique was utilized adhering to the principles of ALARA. COMPARISON: None FINDINGS: Bones: Normal alignment. No acute fracture or bony lesion. Disc spaces: No subluxation. Degenerative changes of the spine. Soft tissues: Normal. Other: Atherosclerotic changes of the vasculature. IMPRESSION: No acute traumatic abnormality. Electronically signed by: Noble Triplett M.D. 08/17/23 20:[address] 08/17/23 17:53 Exam(s): CT CHEST Without Contrast EXAM: CT Chest Without Intravenous Contrast CLINICAL HISTORY: Reason for exam: fall. TECHNIQUE: Axial computed tomography images of the chest without intravenous contrast. CTDI is 27.94 mGy and DLP is 888.35 mGy-cm. Automated exposure control was utilized for the study. A dose lowering technique was utilized adhering to the principles of ALARA. COMPARISON: None FINDINGS: Lungs: Unremarkable. No mass. No consolidation. Pleural space: Unremarkable. No pneumothorax. No significant effusion. Heart: Mild cardiomegaly. Coronary artery calcifications. No significant pericardial effusion. Bones/joints: Degenerative changes of the spine. Probably chronic superior endplate compression deformity partially seen in the L1 vertebral body. No dislocation. Soft tissues: Nonspecific 1.5 cm nodule in the right breast. 8 mm nodule in the left breast. Vasculature: Atherosclerotic changes in the aorta. Ectasia of the ascending thoracic aorta measuring 4.4 cm in diameter. No thoracic aortic aneurysm. Lymph nodes: Nonspecific probable small right cardiophrenic lymph node. Gallbladder and bile ducts: Cholecystectomy change. Adrenals: Nonspecific left adrenal nodule. IMPRESSION: No acute findings in the chest. Electronically signed by: Noble Triplett M.D. 08/17/23 20:[address] 08/17/23 17:53 Exam(s): CT HEAD Without Contrast EXAM: CT Head Without Intravenous Contrast CLINICAL HISTORY: Reason for exam: fall, headache. TECHNIQUE: Axial computed tomography images of the head/brain without intravenous contrast. CTDI is 37.42 mGy and DLP is 624.41 mGy-cm. Automated exposure control was utilized for the study. A dose lowering technique was utilized adhering to the principles of ALARA. COMPARISON: None FINDINGS: Brain: No acute infarct or hemorrhage identified. No extra-axial fluid collection. No mass effect or midline shift. Scattered areas of hypoattenuation in the supratentorial white matter likely represent chronic small vessel ischemic changes. Ventricles and sulci: Prominence of the ventricles and sulci is likely secondary to cerebral volume loss. Bones: Hyperostosis frontalis interna. No bony lesion or acute fracture. Subcutaneous tissues: Normal. Sinuses: Normal. No air-fluid levels or mucosal thickening. Mastoid air cells: Normal. Orbits: Bilateral lens implants. Other: Atherosclerotic calcifications in the intracranial vasculature. IMPRESSION: 1. No acute intracranial abnormality. 2. Chronic small vessel ischemic changes and cerebral volume loss. Electronically signed by: Noble Triplett M.D. 08/17/23 20:14 PM ECG Additional Comments: ECG. Normal sinus rhythm at rate of 68. Pulmonary disease pattern. Incomplete right bundle branch block. Left anterior fascicular block. Code Status & VTE Plan VTE Prophylaxis Plan VTE Prophylaxis will be ordered: Yes
[2023-08-17] MEDS ORDERED: POLYETHYLENE (MIRALAX) 17 GM PACK PO PRN (22:22)
[2023-08-17] MEDS ORDERED: FLUTICASONE HFA 220 MCG INHALER INH SCH (22:22)
[2023-08-17] MEDS ORDERED: DEXTROSE 50% 50 ML SYRINGE IV PRN (22:22)
[2023-08-17] MEDS ORDERED: GLUCOSE 40% GEL 15 GM TUBE PO PRN (22:22)
[2023-08-17] MEDS ORDERED: GLUCOSE 10 TAB/TUBE PO PRN (22:22)
[2023-08-17] MEDS ORDERED: CARBOHYDRATES FOR HYPOGLYCEMIA PO PRN (22:22)
[2023-08-17] MEDS ORDERED: GLUCAGON FOR INJ 1 MG VIAL SQ PRN (22:22)
--- OUTSIDE RECORDS SUMMARY | 2023-08-17 23:10 | External Medical Summary | Summary of Care ---
Author Name Unknown Organization [facility] Address [address] [place] [address] Phone [phone] Care Team Providers Care High Lift Mule Operator Name Role Phone Kimberlyn Erickson DO Primary Care Provider [phone] Reason for Visit * Reason Onset Date Comments Medication Refill 07/18/2023 Encounter Details Date Type Department Care Team (Late st Contact Info) Description 07/18/2023 Refill Family Practice [address] [place] [address] [place] [phone] Kimberlyn Erickson DO [address] [place] [address] Early onset Alzheimer's dementia without behavioral disturbance (HCC) Allergies Active Allergy Reactions Criticality Noted Date Comments Gabapentin Diarrhea 09/20/2022 Pollen 05/15/2011 Propranolol Diarrhea 09/20/2022 documented as of this encounter (statuses as of 07/18/2023) Medications Medication Sig Dispensed Refills Start Date End Date Status aspirin enteric coated 81 MG TBEC Take 1 Tablet by mouth in the morning and 1 Tablet before bedtime. 100 Tab 3 04/05/2018 Active Multivitamin Gummies Adult Oral Tablet Chewable Take 1 Tablet by mouth in the morning. 0 Active Alendronate Sodium 10 MG Oral Tablet (Fosamax)Indicatio ns:Age-related osteoporosis without current pathological fracture Take 1 Tablet by mouth in the morning. with 8 oz. water 30 minutes before first meal of the day. Remain upright for 30 min after taking tablet.. 90 Tablet 01/20/2023 Active Atorvastatin Calcium 20 MG Oral Tablet (Lipitor)Indicatio ns:Type 2 diabetes mellitus with hemoglobin A1c goal of less than 7.0% ([facility]) Take 1 Tablet by mouth in the morning. 90 Tablet 01/20/2023 Active B-12 1000 MCG Oral TabletIndications: Vitamin B 12 deficiency Take 1 Tablet by mouth every evening. 90 Tablet 01/20/2023 Active Fluticasone Propionate HFA 220 MCG/ACT Inhalation Aerosol (Flovent HFA)Indications:Mi ld persistent asthma without complication USE 1 INHALATION BY MOUTH 2 TIMES A DAY 36 g 01/20/2023 Active Metoprolol Succinate ER 25 MG Oral Tablet Extended Release 24 Hour (toPROL XL)Indications:Ess ential (primary) hypertension Take 1.5 Tablets by mouth in the morning. 135 Tablet 01/20/2023 Active Polyethylene Glycol 3350 17 GM/SCOOP Oral Powder (MiraLax)Indicatio ns:Constipation, unspecified constipation type Take 17 g by mouth in the morning. Dissolve one heaping tablespoon in 8 ounces of water or juice.. 507 g 01/20/2023 Active Potassium Chloride Pat ER 10 MEQ Oral Tablet Extended ReleaseIndications :Essential (primary) hypertension Take 1 Tablet by mouth in the morning and 1 Tablet at noon and 1 Tablet before bedtime. 270 Tablet 01/20/2023 Active Pregabalin 25 MG Oral Capsule (Lyrica)Indication s:Diabetic neuropathy (HCC) Take 1 Capsule by mouth in the morning and 1 Capsule before bedtime. 180 Capsule 01/20/2023 Active Solifenacin Succinate 10 MG Oral Tablet (VESIcare)Indicati ons:Other urinary incontinence Take 1 Tablet by mouth in the morning. 90 Tablet 01/20/2023 Active Venlafaxine HCl ER 150 MG Oral Capsule Extended Release 24 Hour (Effexor XR)Indications:DWIGHT (generalized anxiety disorder),Other obsessive-compulsi ve disorders TAKE ONE CAPSULE BY MOUTH DAILY. DO NOT CUT, CRUSH OR CHEW. 90 Capsule 01/20/2023 Active Venlafaxine HCl ER 75 MG Oral Capsule Extended Release 24 Hour (Effexor XR)Indications:DWIGHT (generalized anxiety disorder) TAKE ONE CAPSULE BY MOUTH DAILY. DO NOT CUT, CRUSH, OR CHEW. 90 Capsule 1 01/20/2023 Active Galantamine Hydrobromide 12 MG Oral Tablet (Razadyne)Indicati ons:Early onset Alzheimer's dementia without behavioral disturbance (HCC) Take 1 Tablet by mouth in the morning and 1 Tablet before bedtime. 180 Tablet 1 01/20/2023 Active Melatonin 5 MG Oral Capsule Take 1 Capsule by mouth at bedtime. 90 Capsule 1 01/20/2023 Active Primidone 50 MG Oral Tablet (Mysoline) 1 tab (50 mg) in the morning and 2 tablets (100 mg) in the evening. 270 Tablet 3 01/25/2023 Active Caltrate 600+D Plus Minerals 600-800 MG-UNIT Oral Tablet Chewable Take 1 Tablet by mouth daily. 0 03/14/2023 Active Memantine HCl 10 MG Oral Tablet (Namenda)Indicatio ns:Early onset Alzheimer's dementia without behavioral disturbance (HCC) Take 1 Tablet by mouth 2 times a day with morning and evening meals. 180 Tablet 1 07/18/2023 Active Memantine HCl 10 MG Oral Tablet (Namenda)Indicatio ns:Early onset Alzheimer's dementia without behavioral disturbance (HCC) Take 1 Tablet by mouth 2 times a day with morning and evening meals. 180 Tablet 1 01/20/2023 3 Discontinue d(Refill) documented as of this encounter (statuses as of 07/18/2023) Active Problems Problem Noted Date Diagnosed Date Hypothyroidism 11/10/2022 Diabetes mellitus with cataract 05/24/2022 Diabetic neuropathy 04/21/2022 Age-related osteoporosis wit hout current pathological fracture 04/01/2022 Essential (primary) hypertension 04/01/2022 Type 2 diabetes mellitus wit h diabetic peripheral angiopathy without gangrene 02/24/2022 Morbid obesity with body mas s index (BMI) of 40.0 to 44.9 in adult 02/24/2022 Mild persistent asthma without complication 09/22 Other obsessive-compulsive disorder 10/16/2019 Hyperlipidemia, unspecified 10/16/2019 Early onset Alzheimer's marlee ntia without behavioral disturbance 03/14/2018 Type 2 diabetes mellitus wit h hemoglobin A1c goal of less than 7.0% 03/14/2018 DWIGHT (generalized anxiety disorder) 03/14/2018 documented as of this encounter (statuses as of 07/18/2023) Resolved Problems Problem Noted Date Diagnosed Date Resolved Date Type 2 diabetes mellitus wit h diabetic peripheral angiopathy without gangrene 02/24/2022 0 04/21/2022 Type 2 diabetes mellitus wit h diabetic peripheral angiopathy without gangrene 02/24/2022 0 04/21/2022 Acquired hypothyroidism 10/16/201908/21 Body mass index (BMI) of 40. 0 to 44.9 in adult 05/28/2018 03/03/2022 Overview: Per Obesity protocol #1 documented as of this encounter (statuses as of 07/18/2023) Immunizations Name Administration Dates Next Due Covid-19 Ad26, Single Dose (Murphy/J&J) 021 Covid-19, Mrna, Lnp-s, Pf, B ivalent, 30 Mcg, IM, 12 yrs and above ([employer]) 08/30/2022 Pneumococcal Conjugate Vacci ne, 20-valent ([id number]) 02/24/2022 Pneumococcal Polysaccharide PPV23 (Pneumovax) 03/14/2018 SEASONAL INFLUENZA, PF, 6 M & Above, IM , (FLULAVAL or FLUZONE) 07/15/2019,06/29/2018 Seasonal Influenza, Quadriva lent Hd (Fluzone Hd) 05/26/2023,04/21/2022,08/26/2021 Seasonal Influenza, Quadriva lent, No Preserve, IM 05/29/2020 TDAP (age 10 and older)(Boostrix) 03/14/2018 Zoster Vaccine Recombinant (Shingrix) 08/28/2020 ,06/27/2020 documented as of this encounter Social History Tobacco Use Types Packs/Day Years Used Date Smoking Tobacco: Never Passive Smoke Exposure: Past Smokeless Tobacco: Never Alcohol Use Standard Drinks/Week Comments No 0 (1 standard drink = 0.6 oz pur e alcohol) PHQ-2 Answer Date Recorded PHQ Adult Total Score 2 05/26/2023 Hunger Vital Sign Answer Date Recorded Within the past 12 months, y ou worried that your food would run out before you got the money to buy more. Never true 05/26/20 23 Within the past 12 months, t he food you bought just didn't last and you didn't have money to get more. Never true 05/26/2023 Sex and Gender Information Value Date Recorded Sex Assigned at Female 04/15/2019 1:08 PM EDT Gender Identity Female 04/15/2019 1:08 PM EDT Sexual Orientation Straight 04/15/2019 1: 08 PM EDT Job Start Date Occupation Industry Not on file Not on file Not on file documented as of this encounter Miscellaneous Notes * Telephone Encounter - Kimberlyn Erickson DO - 07/18/2023 10:12 AM ESTSigned Prescriptions: Disp Refills Memantine HCl 10 MG Oral Tablet (Namenda) 180 Ta*1 Sig: Take 1 Tablet by mouth 2 times a day with morning and evening meals. Authorizing Provider: KIMBERLYN ERICKSON * Telephone Encounter - Shanthi Maya CPhT - 07/18/2023 9:37 AM EST Did you pend patient's preferred pharmacy and medication before forwarding?4 Pharmacy: [id number] [address] [facility] Pending Prescriptions: Disp Refills Memantine HCl 10 MG Oral Tablet (Namenda) 180 Ta*1 Sig: Take 1 Tablet by mouth 2 times a day with morning and evening meals. Last Visit: 05/26/2023 (in office), Visit date not found (telemedicine) Next Visit: 09/01/2023 If no future appointments scheduled, and last appointment is greater than a year ago, please schedule patient for a follow-up appointment Last date the medication was ordered: 01/20/2023 Is this request for a controlled substance?No Urine Drug Screen:No results found for this or any previous visit. Patient Phone Numbers mobile [phone] Labs: Lab Results Component Value Date/Time CREAT 0.9 03/03/2023 03:33 PM CREAT 0.6 06/01/2020 03:12 PM POTASSIUM 4.3 03/03/2023 03:33 PM POTASSIUM 3.4 (L) 06/01/2020 03:12 PM TSH 2.42 03/03/2023 03:33 PM TSH 2.709 02/12/2022 12:00 AM TSH 0.25 (L) 10/16/2019 02:32 PM LDLCALC 87 03/03/2023 03:33 PM LDLCALC 55 06/01/2020 03:12 PM LDLDIRECT NOT APPLICABLE 06/01/2020 03:12 PM ALT 22 03/03/2023 03:33 PM ALT 24 06/01/2020 03:12 PM HGBA1C 7.0 (H) 03/03/2023 03:33 PM HGBA1C 7.4 (H) 06/01/2020 03:12 PM documented in this encounter Plan of Treatment Upcoming Encounters Date Type Department Care Team (Late st Contact Info) Description 08/08/2023 1:00 PM EST Nurse Only Ancillary [facility] [address] [place] [address] College, Nurse Annual Wellness Visit [address] [place] [id number] 09/01/2023 3:00 PM EST Office Visit Family Practice [facility] [address] [place] [address] Kimberlyn Erickson, DO [address] [place] [address] Health Maintenance Due Date Last Done Comments Mammogram 1995 Cologuard 2000 Colonoscopy 2000 Colorectal Cancer Screening 2000 Fecal Occult Blood Test 2000 Sigmoidoscopy 2000 Hepatitis B (1 of 3 - Risk 3-dose series) 2015 *SPIROMETRY ONCE FOR ASTHMA-ADULT 10/18/2019 Diabetic Eye Exam 03/10/2023 03/10/2022, , 11/08/2019, Additional history exists COVID-19 Vaccine ( season) 2023 08/30/2022, 12/26/2020 HbA1c 09/03/2023 03/03/2023, 02/0 03/2022, 12/01/2020, Additional history exists Diabetic Foot Exam 12/03/2023 12/02/2022, 0 02/24/2022, 12/01/2020, Additional history exists GFR 03/03/2024 03/03/2023, 020 03/2022, 12/01/2020, Additional history exists TSH 03/03/2024 03/03/2023, 01/20, 09/28/2021, Additional history exists Albumin/Creatinine Ratio 03/10/2024 023, 09/28/2021, 06/01/2020, Additional history exists DXA Scan 03/15/2024 03/15/2022 Depression Screening 05/26/2024 05/26/2023 Lipid Panel 03/03/2028 03/03/2023, 02/0 03/2022, 06/01/2020, Additional history exists DTaP,Tdap,and Td Vaccines (2 - Td or Tdap) 03/14/2028 03/14/2018 Pap Smear Discontinued 03/14/2018 (Declined) Zoster Vaccines Completed 08/28/2020, 02/2020, 01/07/2015 Pneumococcal Vaccine: 65+ Years Completed 02/24/2022, 03/14/2018 VITAMIN D LEVEL ONCE IN A LIFETIME-USE SMARTSET# [id number] Completed 03/03/2023 Influenza Vaccine (FLU shot) Completed 05/26/2023, 04/21/2022, 08/26/2021, Additional history exists GARDASIL-HPV IMMUNIZATION SERIES Aged Out No longer eligible based on patient's age to complete this topic MENINGOCOCCAL (MENACTRA/MENVEO) Aged Out No longer eligible based on patient's age to complete this topic documented as of this encounter Medical Devices Implanted Type Area Core Inserter Device Identifier Shelf Expiration Date Model / Serial / Lot Lens Intraoc 21.5 - [id number] - [id number] Implanted:Qty: 1 on 09/06/2022 by Slava Colón MD at OR [facility] Right: Eye [employer]CH [employer] LOMB 03/20/2027 [id number] / [id number] / [id number] Lens Intraoc 23.0 - [id number] - [id number] Implanted:Qty: 1 on 09/27/2022 by Slava Colón MD at [facility] Left: Eye BAUSCH & LOMB 06/20/2027 [id number] / [id number] / documented as of this encounter Visit Diagnoses Diagnosis Early onset Alzheimer's dementia without behavioral disturbance (HCC) documented in this encounter Advance Directives Documents on File Type Date Recorded Patient Records Management Coordinator Expl anation Advance Directives and Living Will 11/19/2015 ADVANCE DIRECTIVE / LIVING WILL Latest Code Status on File Code Status Date Activated Date Inactivated Comments No Code 09/27/2022 7:37 AM 09/27/2022 1:46 PM This or susan reflects the patients wishes and were consensually agreed upon. Question Answer Comments Discussion of Advance Directives occurred with: Patient Does the patient have a Living Will? No Does the patient have Health Care Power of Learning Center Coordinator? No Code Status History Code Status Date Activated Date Inactivated Comments No Code 09/06/2022 7:37 AM 09/06/2022 1:55 PM This order reflects the patients wishes and were consensually agreed upon. Question Answer Comments Discussion of Advance Directives occurred with: Patient Does the patient have a Living Will? No Does the patient have Health Care Power of Learning Center Coordinator? No Care Teams High Lift Mule Operator Relationship Specialty Start Date End Date Kimberlyn Erickson DO [address] [place] [address] PCP - General Family Medicine 05/17/23 documented as of this encounter
--- OUTSIDE RECORDS SUMMARY | 2023-08-17 23:10 | External Medical Summary | Summary of Care ---
Author Name Unknown Organization [facility] Address [address] [place] [address] Phone [phone] Care Team Providers Care Beader Tender Name Role Phone Kimberlyn Erickson DO Primary Care Provider [phone] Reason for Visit * Reason Onset Date Comments Medication Refill 08/15/2023 Encounter Details Date Type Department Care Team (Late st Contact Info) Description 08/15/2023 Refill Family Practice [address] [place] [address] [place] [phone] Kimberlyn Erickson DO [address] [place] [address] DWIGHT (generalized anxiety disorder) Allergies Active Allergy Reactions Criticality Noted Date Comments Gabapentin Diarrhea 09/20/2022 Pollen 05/15/2011 Propranolol Diarrhea 09/20/2022 documented as of this encounter (statuses as of 08/16/2023) Medications Medication Sig Dispensed Refills Start Date End Date Status aspirin enteric coated 81 MG TBEC Take 1 Tablet by mouth in the morning and 1 Tablet before bedtime. 100 Tab 3 04/05/2018 Active Multivitamin Gummies Adult Oral Tablet Chewable Take 1 Tablet by mouth in the morning. 0 Active Alendronate Sodium 10 MG Oral Tablet (Fosamax)Indication s:Age-related osteoporosis without current pathological fracture Take 1 Tablet by mouth in the morning. with 8 oz. water 30 minutes before first meal of the day. Remain upright for 30 min after taking tablet.. 90 Tablet 1 01/20/2023 Active Atorvastatin Calcium 20 MG Oral Tablet (Lipitor)Indication s:Type 2 diabetes mellitus with hemoglobin A1c goal of less than 7.0% (HCC) Take 1 Tablet by mouth in the morning. 90 Tablet 01/20/2023 Active B-12 1000 MCG Oral TabletIndications:V itamin B 12 deficiency Take 1 Tablet by mouth every evening. 90 Tablet 01/20/2023 Active Fluticasone Propionate HFA 220 MCG/ACT Inhalation Aerosol (Flovent HFA)Indications:Mil d persistent asthma without complication USE 1 INHALATION BY MOUTH 2 TIMES A DAY 36 g 01/20/2023 Active Metoprolol Succinate ER 25 MG Oral Tablet Extended Release 24 Hour (toPROL XL)Indications:Esse ntial (primary) hypertension Take 1.5 Tablets by mouth in the morning. 135 Tablet 01/20/2023 Active Polyethylene Glycol 3350 17 GM/SCOOP Oral Powder (MiraLax)Indication s:Constipation, unspecified constipation type Take 17 g by mouth in the morning. Dissolve one heaping tablespoon in 8 ounces of water or juice.. 507 g 01/20/2023 Active Potassium Chloride Pat ER 10 MEQ Oral Tablet Extended ReleaseIndications: Essential (primary) hypertension Take 1 Tablet by mouth in the morning and 1 Tablet at noon and 1 Tablet before bedtime. 270 Tablet 01/20/2023 Active Pregabalin 25 MG Oral Capsule (Lyrica)Indications :Diabetic neuropathy (HCC) Take 1 Capsule by mouth in the morning and 1 Capsule before bedtime. 180 Capsule 01/20/2023 Active Solifenacin Succinate 10 MG Oral Tablet (VESIcare)Indicatio ns:Other urinary incontinence Take 1 Tablet by mouth in the morning. 90 Tablet 01/20/2023 Active Venlafaxine HCl ER 150 MG Oral Capsule Extended Release 24 Hour (Effexor XR)Indications:DWIGHT (generalized anxiety disorder),Other obsessive-compulsiv e disorders TAKE ONE CAPSULE BY MOUTH DAILY. DO NOT CUT, CRUSH OR CHEW. 90 Capsule 01/20/2023 Active Galantamine Hydrobromide 12 MG Oral Tablet (Razadyne)Indicatio ns:Early onset Alzheimer's dementia without behavioral disturbance [...] Tablet by mouth daily. 0 03/14/2023 Active Montelukast Sodium 10 MG Oral Tablet (Singulair)Indicati ons:Allergic rhinitis due to other allergic trigger, unspecified seasonality Take 1 Tablet by mouth daily. 90 Tablet 1 07/18/2023 Active metFORMIN HCl 500 MG Oral Tablet (Glucophage)Indicat ions:Type 2 diabetes mellitus with hemoglobin A1c goal of less than 7.0% (HCC) Take 1 Tablet by mouth 2 times a day with morning and evening meals. 180 Tablet 1 07/18/2023 Active Levothyroxine Sodium 112 MCG Oral Tablet (Levoxyl)Indication s:Acquired hypothyroidism Take 1 Tablet by mouth daily first thing in the morning. (at least 30 min prior to breakfast or other meds) 90 Tablet 1 07/18/2023 Active Memantine HCl 10 MG Oral Tablet (Namenda)Indication s:Early onset Alzheimer's dementia without behavioral disturbance (HCC) Take 1 Tablet by mouth 2 times a day with morning and evening meals. 180 Tablet 1 07/18/2023 Active Venlafaxine HCl ER 75 MG Oral Capsule Extended Release 24 Hour (Effexor XR)Indications:DWIGHT (generalized anxiety disorder) TAKE ONE CAPSULE BY MOUTH DAILY. DO NOT CUT, CRUSH, OR CHEW. 90 Capsule 1 08/16/2023 Active Venlafaxine HCl ER 75 MG Oral Capsule Extended Release 24 Hour (Effexor XR)Indications:DWIGHT (generalized anxiety disorder) TAKE ONE CAPSULE BY MOUTH DAILY. DO NOT CUT, CRUSH, OR CHEW. 90 Capsule 1 01/20/2023 3 Discontinu ed(Refill) documented as of this encounter (statuses as of 08/16/2023) Active Problems Problem Noted Date Diagnosed Date [...] as of this encounter (statuses as of 08/16/2023) Resolved Problems Problem Noted Date Diagnosed Date [...] as of this encounter (statuses as of 08/16/2023) Immunizations Name Administration Dates Next Due Covid-19 Ad26, Single Dose (Murphy/J&J) 021 Covid-19, Mrna, Lnp-s, Pf, B ivalent, 30 Mcg, IM, 12 yrs and above ([employer]) 08/30/2022 Pneumococcal Conjugate Vacci ne, 20-valent ([id number]) 02/24/2022 Pneumococcal Polysaccharide PPV23 (Pneumovax) 03/14/2018 Seasonal Influenza, PF, 6 M & above, IM , (FluLaval or Fluzone) 07/15/2019,06/29/2018 Seasonal Influenza, Quadriva lent Hd (Fluzone [...] Answer Date Recorded PHQ Adult Total Score 0 08/09/2023 Hunger Vital Sign Answer Date Recorded Within the past 12 months, y ou worried that your food would run out before you got the money to buy more. Never true 08/09/20 23 Within the past 12 months, t he food you bought just didn't last and you didn't have money to get more. Never true 08/09/2023 Sex and Gender Information Value Date Recorded Sex Assigned at Female 04/15/2019 1:08 PM EDT Gender Identity Female 04/15/2019 1:08 PM EDT Sexual Orientation Straight 04/15/2019 1: 08 PM EDT Job Start Date Occupation Industry Not on file Not on file Not on file documented as of this encounter Miscellaneous Notes * Telephone Encounter - Divya Daniels RPh - 08/16/2023 12:18 PM EST Signed Prescriptions: Disp Refills Venlafaxine HCl ER 75 MG Oral Capsule Exte*90 Cap*1 Sig: TAKE ONE CAPSULE BY MOUTH DAILY. DO NOT CUT, CRUSH, OR CHEW. Authorizing Provider: KIMBERLYN ERICKSON Ordering User: DIVYA DANIELS * Telephone Encounter - Alvaro Burris, physician/allergy/immunology - 08/15/2023 3:01 PM EST Did you pend patient's preferred pharmacy and medication before forwarding?yes [facility]acy: [id number] [address] [facility] Pending Prescriptions: Disp Refills Venlafaxine HCl ER 75 MG Oral Capsule Ext*90 Cap*1 Sig: TAKE ONE CAPSULE BY MOUTH DAILY. DO NOT CUT, CRUSH, OR CHEW. Last Visit: 05/26/2023 (in office), Visit date not found (telemedicine) Next Visit: 09/01/2023 If no future appointments scheduled, and last appointment is greater than a year ago, please schedule patient for a follow-up appointment Last date the medication was ordered: 01/20/2023 Is this request for a controlled substance?No Urine Drug Screen:No results found for this or any previous visit. Patient Phone Numbers Labs: Lab Results Component Value Date/Time CREAT [...] Care Team (Late st Contact Info) Description 09/01/2023 3:00 PM EST Office Visit Family Practice [address] [place] [address] [place] [phone] Kimberlyn Erickson DO [address] [facility], [place] [address] Health Maintenance Due Date Last Done Comments [...] 12/01/2020, Additional history exists GFR 03/03/2024 03/03/2023, 02/0 03/2022, 12/01/2020, Additional history exists TSH 03/03/2024 03/03/2023, 062 12/2021, 09/28/2021, Additional history exists Albumin/Creatinine Ratio 03/10/2024 023, 09/28/2021, 06/01/2020, Additional history exists DXA Scan 03/15/2024 03/15/2022 Depression Screening 08/09/2024 08/09/2023 Lipid Panel 03/03/2028 03/03/2023, 02/0 03/2022, 06/01/2020, Additional history exists DTaP,Tdap,and Td Vaccines (2 - Td or Tdap) 03/14/2028 03/14/2018 Pap Smear Discontinued 03/14/2018 (Declined) Zoster Vaccines Completed 08/28/2020, 11/0 02/2020, 01/07/2015 Pneumococcal Vaccine: 65+ Years Completed 02/24/2022, 03/14/2018 VITAMIN D LEVEL ONCE IN A LIFETIME-USE SMARTSET# [id number] Completed 03/03/2023 Influenza Vaccine (FLU shot) Completed 05/26/2023, 04/21/2022, 08/26/2021, Additional history exists GARDASIL-HPV IMMUNIZATION SERIES Aged Out No longer eligible based on patient's age to complete this topic MENINGOCOCCAL (MENACTRA/MENVEO) Aged Out No longer eligible based on patient's age to complete this topic documented as of this encounter Medical Devices Implanted Type Area Talent Agent Device Identifier Shelf Expiration Date Model / Serial / Lot Lens Intraoc 21.5 - [id number] - [id number] Implanted:Qty: 1 on 09/06/2022 by Slava Colón MD at OR [facility] Right: Eye [employer]OM[employer] 03/20/2027 [id number] / [id number] / [id number] Lens Intraoc 23.0 - [id number] - [id number] Implanted:Qty: 1 on 09/27/2022 by Slava Colón MD at OR [facility] Left: Eye BAUSCH [employer] LOMB 06/20/2027 [id number] / [id number] / documented as of this encounter Visit Diagnoses Diagnosis DWIGHT (generalized anxiety disorder) Generalized anxiety disorder documented in this encounter Advance Directives Documents on File Type Date Recorded Patient Collections Agent Expl anation Advance Directives and Living Will [...] the patient have Health Care Power of Business Law Instructor? No Code Status History Code Status Date Activated Date Inactivated Comments No Code 09/06/2022 7:37 AM 09/06/2022 1:55 PM This order reflects the patients wishes and were consensually agreed upon. Question Answer Comments Discussion of Advance Directives occurred with: Patient Does the patient have a Living Will? No Does the patient have Health Care Power of Business Law Instructor? No Care Teams Beader Tender Relationship Specialty Start Date End Date Kimberlyn Erickson DO [address] [place] [address] PCP - General Family Medicine 05/17/23 documented as of this encounter
--- OUTSIDE RECORDS SUMMARY | 2023-08-17 23:10 | External Medical Summary | Summary of Care ---
Author Name Unknown Organization [facility] Address [address] [place] [address] Phone [phone] Care Team Providers Care Supportability Engineer Name Role Phone Kimberlyn Brennan DO Primary Care Provider Reason for Visit * Reason Onset Date Comments Follow Up Medication Administration 05/26/2023 Flu an d/or Pneumo Inj Encounter Details Date Type Department Care Team Description 05/26/2023 Office Visit Family Practice [facility] [address] [place] [phone] Kimberlyn Brennan DO [address] [place] [address] Type 2 diabetes mellitus with hemoglobin A1c goal of less than 7.0% (HCC)*; Early onset Alzheimer's dementia without behavioral disturbance (HCC); DWIGHT (generalized anxiety disorder); Other obsessive-compulsive disorder; Risk and functional assessment; Need for prophylactic vaccination and inoculation against influenza Allergies Active Allergy Reactions Severity Noted Date Comments Gabapentin Diarrhea 09/20/2022 Pollen 05/15/2011 Propranolol Diarrhea 09/20/2022 documented as of this encounter (statuses as of 05/26/2023) Medications Medication Sig Dispensed Refills Start Date End Date Status aspirin enteric coated 81 MG TBEC Take 1 Tablet by mouth in the morning and 1 Tablet before bedtime. 100 Tab 3 04/05/2018 Active Multivitamin Gummies Adult Oral Tablet Chewable Take 1 Tablet by mouth in the morning. 0 Active Alendronate Sodium 10 MG Oral Tablet (Fosamax)Indications :Age-related osteoporosis without current pathological fracture Take 1 Tablet by mouth in the morning. with 8 oz. water 30 minutes before first meal of the day. Remain upright for 30 min after taking tablet.. 90 Tablet 01/20/2023 Active Atorvastatin Calcium 20 MG Oral Tablet (Lipitor)Indications :Type 2 diabetes mellitus with hemoglobin A1c goal of less than 7.0% (HCC) Take 1 Tablet by mouth in the morning. 90 Tablet 01/20/2023 Active B-12 1000 MCG Oral TabletIndications:Vi tamin B 12 deficiency Take 1 Tablet by mouth every evening. 90 Tablet 01/20/2023 Active Fluticasone Propionate HFA 220 MCG/ACT Inhalation Aerosol (Flovent HFA)Indications:Mild persistent asthma without complication USE 1 INHALATION BY MOUTH 2 TIMES A DAY 36 g 01/20/2023 Active Levothyroxine Sodium 112 MCG Oral Tablet (Levoxyl)Indications :Acquired hypothyroidism Take 1 Tablet by mouth daily first thing in the morning. (at least 30 min prior to breakfast or other meds) 90 Tablet 01/20/2023 Active metFORMIN HCl 500 MG Oral Tablet (Glucophage)Indicati ons:Type 2 diabetes mellitus with hemoglobin A1c goal of less than 7.0% (HCC) Take 1 Tablet by mouth 2 times a day with morning and evening meals. 180 Tablet 01/20/2023 Active Metoprolol Succinate ER 25 MG Oral Tablet Extended Release 24 Hour (toPROL XL)Indications:Essen tial (primary) hypertension Take 1.5 Tablets by mouth in the morning. 135 Tablet 01/20/2023 Active Montelukast Sodium 10 MG Oral Tablet (Singulair)Indicatio ns:Allergic rhinitis due to other allergic trigger, unspecified seasonality Take 1 Tablet by mouth in the morning. 90 Tablet 01/20/2023 Active Polyethylene Glycol 3350 17 GM/SCOOP Oral Powder (MiraLax)Indications :Constipation, unspecified constipation type Take 17 g by mouth in the morning. Dissolve one heaping tablespoon in 8 ounces of water or juice.. 507 g 01/20/2023 Active Potassium Chloride Pat ER 10 MEQ Oral Tablet Extended ReleaseIndications:E ssential (primary) hypertension Take 1 Tablet by mouth in the morning and 1 Tablet at noon and 1 Tablet before bedtime. 270 Tablet 1 01/20/2023 Active Pregabalin 25 MG Oral Capsule (Lyrica)Indications: Diabetic neuropathy (HCC) Take 1 Capsule by mouth in the morning and 1 Capsule before bedtime. 180 Capsule 1 01/20/2023 Active Solifenacin Succinate 10 MG Oral Tablet (VESIcare)Indication s:Other urinary incontinence Take 1 Tablet by mouth in the morning. 90 Tablet 1 01/20/2023 Active Venlafaxine HCl ER 150 MG Oral Capsule Extended Release 24 Hour (Effexor XR)Indications:DWIGHT (generalized anxiety disorder),Other obsessive-compulsive disorders TAKE ONE CAPSULE BY MOUTH DAILY. DO NOT CUT, CRUSH OR CHEW. 90 Capsule 1 01/20/2023 Active Venlafaxine HCl ER 75 MG Oral Capsule Extended Release 24 Hour (Effexor XR)Indications:DWIGHT (generalized anxiety disorder) TAKE ONE CAPSULE BY MOUTH DAILY. DO NOT CUT, CRUSH, OR CHEW. 90 Capsule 1 01/20/2023 Active Galantamine Hydrobromide 12 MG Oral Tablet (Razadyne)Indication s:Early onset Alzheimer's dementia without behavioral disturbance (HCC) Take 1 Tablet by mouth in the morning and 1 Tablet before bedtime. 180 Tablet 1 01/20/2023 Active Melatonin 5 MG Oral Capsule Take 1 Capsule by mouth at bedtime. 90 Capsule 1 01/20/2023 Active Memantine HCl 10 MG Oral Tablet (Namenda)Indications :Early onset Alzheimer's dementia without behavioral disturbance (HCC) Take 1 Tablet by mouth 2 times a day with morning and evening meals. 180 Tablet 1 01/20/2023 Active Primidone 50 MG Oral Tablet (Mysoline) 1 tab (50 mg) in the morning and 2 tablets (100 mg) in the evening. 270 Tablet 3 01/25/2023 Active Caltrate 600+D Plus Minerals 600-800 MG-UNIT Oral Tablet Chewable Take 1 Tablet by mouth daily. 0 03/14/2023 Active documented as of this encounter (statuses as of 05/26/2023) Active Problems Problem Noted Date Hypothyroidism 11/10/2022 Diabetes mellitus with cataract 05/24/20 22 Diabetic neuropathy 04/21/2022 Age-related osteoporosis without current pathological fracture 04/01/2022 Essential (primary) hypertension 022 Type 2 diabetes mellitus wit h diabetic peripheral angiopathy without gangrene 02/24/2022 Morbid obesity with body mass index (BMI ) of 40.0 to 44.9 in adult 02/24/2022 Mild persistent asthma without complicat ion 10/16/2019 Other obsessive-compulsive disorder 09/22 Hyperlipidemia, unspecified 10/16/2019 Early onset Alzheimer's dementia without behavioral disturbance 03/14/2018 Type 2 diabetes mellitus with hemoglobin A1c goal of less than 7.0% 03/14/2018 DWIGHT (generalized anxiety disorder) 03/14 documented as of this encounter (statuses as of 05/26/2023) Resolved Problems Problem Noted Date Resolved Date Type 2 diabetes mellitus wit h diabetic peripheral angiopathy without gangrene 02/24/2022 04/21/2022 Type 2 diabetes mellitus wit h diabetic peripheral angiopathy without gangrene 02/24/2022 04/21/2022 Acquired hypothyroidism 10/16/2019 09/07/19 23 Body mass index (BMI) of 40.0 to 44.9 in adult 1 03/03/2022 Overview: Per Obesity protocol #1 documented as of this encounter (statuses as of 05/26/2023) Immunizations Name Administration Dates Next Due Covid-19 Ad26, Single Dose (Murphy/J&J) 021 Covid-19, Mrna, Lnp-s, Pf, B ivalent, 30 Mcg, IM, 12 yrs and above (Pfizer) 08/30/2022 Pneumococcal Conjugate Vacci ne, 20-valent ([id number]) 02/24/2022 Pneumococcal Polysaccharide PPV23 (Pneumovax) 03/14/2018 SEASONAL [...] Passive Smoke Exposure: Past Smokeless Tobacco: Never Tobacco Cessation:Counseling Given: Yes Alcohol Use Standard Drinks/Week Comments No 0 (1 standard drink = 0.6 oz pur e alcohol) Food Insecurity Answer Date Recorded Within the past 12 months, y ou worried that your food would run out before you got money to buy more. Never true 05/26/2023 Within the past 12 months, t he food you bought just didn't last and you didn't have money to get more. Never true 05/26/2023 Sex Assigned at Date Recorded Female 04/15/2019 1:08 PM E DT Job Start Date Occupation Industry Not on file Not on file Not on file documented as of this encounter Last Filed Vital Signs Vital Sign Reading Time Taken Comments Blood Pressure 130/80 05/26/2023 2:29 PM EDT Pulse 66 05/26/2023 2:29 PM EDT Temperature 36.3 C (97.3 F) 05/26/2023 2:29 PM ED T Respiratory Rate 13 05/26/2023 2:29 PM EDT Oxygen Saturation 96% 05/26/2023 2:29 PM EDT Inhaled Oxygen Concentration - - Weight 113.5 kg (250 lb 3.2 oz) 05/26/2023 2:29 PM EDT Height 165.1 cm (5' 5") 05/26/2023 2:29 PM EDT Body Mass Index 41.64 05/26/2023 2:29 PM EDT documented in this encounter Patient Instructions * Patient Instructions* Leora Bustillos LPN - 05/26/2023 2:24 PM EDT Patient Instructions - Fall Prevention (This education is for all patients over 65 regardless of symptoms) Remember to take your current medications as prescribed. In order to prevent falls, you are encouraged to: Exercise Utilize assistive/adaptive devices Avoid multifocal lenses when walking Avoid hazards in home Maintain a regular toileting schedule Any questions please contact our office. Preventing Falls in the Home (This education is for all patients over 65 regardless of symptoms) As you get older, falls are more likely. Thats because your reaction time slows. Your muscles and joints may also get stiffer, making them less flexible. Illness, medications, and vision changes can also affect your balance. A fall could leave you unable to live on your own. To make your home safer, follow these tips: Floors Put nonskid pads under area rugs Remove throw rugs Replace worn floor coverings Tack carpets firmly to each step on carpeted stairs. Put nonskid strips on the edges of uncarpeted stairs Keep floors and stairs free of clutter and cords Arrange furniture so there are clear pathways Clean up any spills right away Bathrooms Install grab bars in the tub or shower Apply nonskid strips or put a nonskid rubber mat in the tub or shower Sit on a bath chair to bathe Use bathmats with nonskid backing Lighting Keep a flashlight in each room Put a nightlight along the pathway between the bedroom and the bathroom [employer] Patient Education Copyright 2008 - 2010 [employer] except where otherwise noted Preventing Falls: Exercises to Improve Balance, Flexibility, Strength, and Staying Power (This education is for all patients over 65 regardless of symptoms) Certain types of exercises may help make you less likely to fall. Try the ones below. Or do other exercises that your healthcare provider suggests. Depending on your health, you may need to start slowly. Dont let that stop you. Even small amounts of exercise can help you. Be sure to talk to yourhealthcare provider before starting any exercise program. Improve Balance Many types of exercise can help improve balance. Daryl chi and yoga are good examples. Heres another one to try. You can do it anytime and almost anywhere. Stand next to a counter or solid support. Push yourself up onto your tiptoes. Hold for 5 seconds. If you start to lose your balance, hold on to the counter. Rest and repeat 5 times. Work up to holding for 20 to 30 seconds, if you can. Increase Flexibility Being more flexible makes it easier for you to move around safely. Try exercises like the seated hamstring stretch. Sit in a chair and put one foot on a stool. Straighten your leg and reach with both hands down either side of your leg. Reach as far down your leg as you can. Hold for about 20 seconds. Go back to the starting position. Then repeat 5 times. Switch legs. Build Strength Resistance exercises help build strength. You can do them without equipment. Or you can use weights, elastic bands, or special machines. One such exercise is called the biceps curl. You can hold a 1 pound weight or even a can of soup. Do this exercise at least 3 times a week. Strive for everyday. Sit up straight in a chair. Keep your elbow close to your body and your wrist straight. Bend your arm, moving your hand up to your shoulder. Then slowly lower your arm. Repeat 5 times. Switch to the other arm. Build Your Staying Power Aerobic exercises make your heart and lungs stronger so you can keep moving longer. Walking and swimming are two of the best types of exercises you can do. Using a stationary bike is great, too. Find an aerobic exercise that you enjoy. Start slowly and build up. Even 5 minutes is helpful. Aimfor a goal of 30 minutes, at least 3 times a week. You dont have to do 30 minutes in one session. Break it up and walk a little throughout the day. More Helpful Tips Start easy. Slowly work up to doing more. Talk with your healthcare provider about the best exercises for you. Call senior centers or health clubs about exercise programs. If needed, have a family member watch you walk every so often to check your stability. Exercise with a friend. Choose an activity you both enjoy. Try exercises that you can do anytime, anywhere. Here are two examples. Have someone with you when you first try these: Practice walking by placing one foot right in front of the other. Stand up and sit down 10 times. Repeat this throughout the day. [employer] Patient Education Copyright 2008 - 2010 [place] except where otherwise noted. Preventing Falls: Moving Safely Using a Cane or Walker (This education is for all patients over 65 regardless of symptoms) Keep the cane away from your feet so you dont trip. A walking aid, such as a cane or walker, can help you stay more independent and avoid falls. Remember to keep your walking aid within easy reach when youre in a chair or in bed. And learn how to use it safely so you dont injure yourself. Using a Cane If you have a stronger side, hold the cane on that side. Get your balance. Move the cane and your weaker leg forward. Support your weight on both the cane and your weaker side. Step with your stronger leg. Start again from step 1. If youre using a folding walker, be sure you know how to lock it open. Check that its locked open before each use. Using a Walker Roll the walker (or lift it, if youre using one without wheels) forward about 12 inches. Step forward with your weaker leg first. Use the walker to help keep your balance. Bring your other foot forward to the center of the walker. Start again from step 1. Helpful Tips Check with your healthcare provider about the right walking aid to use. Ask about a walker with a seat attached. Check the tips of your cane or walker to make sure they have nonskid covers. Move slowly from room to room. Dont flores. Sit down to get dressed. Use a janak pack or backpack to keep your hands free. Get help for jobs that mean climbing, even on a stepstool. [employer] Patient Education Copyright 2008 - 2010 [employer] except where otherwise noted. Urinary Incontinence Plan of Care Documentation: (This education is for all patients over 65 regardless of symptoms) Current medications reconciled. Patient encouraged to: Practice kegal exercises Provide education materials Use the restroom every 2 hours throughout the day Limit caffeine, alcohol, spicy foods and acidic foods Keep a bladder diary Limit fluid intake 3-4 hours before bed Lose weight Prevent constipation Take fluid pills at a time when you can get to the bathroom quickly Control sugar better if diabetic Limit fluid intake to 60 oz. per day Wear support stockings (TEDs)if you have edema Leora Bustillos LPN 05/26/2023 Kegel Exercises Kegel exercises dont require special clothing or equipment. Theyre easy to learn and simple to do. And if you do them right, no one can tell youre doing them, so they can be done almost anywhere. Your doctor, nurse, or physical therapist can answer any questions you have and help you get started. A Weak Pelvic Floor The pelvic floor muscles may weaken due to aging, and vaginal childbirth, injury, surgery, chronic cough, or lack of exercise. If the pelvic floor is weak, your bladder and other pelvic organs may sag out of place. The urethra may also open too easily and allow urine to leak out. Kegel exercises can help you strengthen your pelvic floor muscles so they can better support the pelvic organs and control urine flow. How Kegel Exercises Are Done Try each of the Kegel exercises described below. When youre doing them, try not to move your leg, buttock, or stomach muscles. While youre urinating, try to stop the flow of urine. Start and stop it as often as you can. Contract as if you were stopping your urine stream, but do it when youre not urinating. Tighten your rectum as if trying not to pass gas. Contract your anus, but dont move your buttocks. Helpful Hints Do your Kegels as often as you can. The more you do them, the faster youll feel the results. Pick an activity you do often as a reminder. For instance, do your Kegels every time you sit down. Tighten your pelvic floor before you sneeze, get up from a chair, cough, laugh, or lift. This protects your pelvic floor from injury and can help prevent urine leakage. Try to hold each Kegel for a slow count to five. You probably wont be able to hold them for thatlong at first, but keep practicing. It will get easier as your pelvic floor gets stronger. Eventually, special weights that you place in your vagina may be recommended to help make your Kegels even more effective. [employer] Patient Education Copyright 2009 - 2010 [employer] except where otherwise noted. Here are some helpful tips for your urinary incontinence: (This education is for all patients over 65 regardless of symptoms) Practice Kegel exercises Use the restroom every 2 hours throughout the day Limit caffeine, alcohol, spicy foods, and acidic foods Keep a bladder diary Limit fluid intake 3-4 hours before bed Lose weight Prevent constipation Take fluid pills at a time when can get to the bathroom quickly Control sugar better if diabetic Limit fluid intake to 60 oz. per day Any questions, please feel free to contact our office. ~~PATIENT INSTRUCTIONS FOR FLU SHOT~~ Possible side effects of influenza vaccine, (flu shot), are usually mild and include: 1. Soreness or redness at injection site 2. Low grade fever 3. Body aches You may use Tylenol/Acetaminophen as needed for these symptoms. LET YOUR DOCTOR KNOW IMMEDIATELY IF YOU HAVE DIFFICULTY BREATHING OR SWALLOWING, EXPERIENCE ITCHINGOF FEET OR HANDS, HAVE SWELLING OF EYES, FACE OR INSIDE OF NOSE. documented in this encounter Progress Notes * Kimberlyn Brennan, - 05/26/2023 2:39 PM EDT SUBJECTIVE: Chief Complaint Patient presents with Follow Up Medication Administration Flu and/or Pneumo Inj HPI: Maryjane Hudson is a 68 year old female who presents today for regular return. Pt notes she is ok except for her bowels. She states that she will go 4 times in the morning. This could be a formed bowel or not. She notes that it will be fine then the rest of the day. She notes no further BMs during the day. Typically the 4 times are within an hour. She then states that she eats and it "goes right through her". Unclear how many times she is actually going during the day. She notes no pain. Sheis on metformin. She declines colonoscopy. Pt continues to live alone. Her daughter does help with medications. Son often comes up to visit her on Fridays and will help get her to appts and things. PHM: Patient Active Problem List Diagnosis Code Early onset Alzheimer's dementia without behavioral disturbance ([facility]) G30.0, F02.80 Type 2 diabetes mellitus with hemoglobin A1c goal of less than 7.0% ([facility]) E11.9 DWIGHT (generalized anxiety disorder) F41.1 Mild persistent asthma without complication J45.30 Other obsessive-compulsive disorder F42.8 Hyperlipidemia, unspecified E78.5 Type 2 diabetes mellitus with diabetic peripheral angiopathy without gangrene ([facility]) E11.51 Morbid obesity with body mass index (BMI) of 40.0 to 44.9 in adult ([facility]) E66.01, Z68.41 Age-related osteoporosis without current pathological fracture M81.0 Essential (primary) hypertension I10 Diabetic neuropathy ([facility]) E11.40 Diabetes mellitus with cataract ([facility]) E11.36 Hypothyroidism E03.9 Current Outpatient Medications Medication Sig Dispense Refill aspirin enteric coated 81 MG TBEC Take 1 Tablet by mouth in the morning and 1 Tablet before bedtime. 100 Tab 3 Multivitamin Gummies Adult Oral Tablet Chewable Take 1 Tablet by mouth in the morning. Alendronate Sodium 10 MG Oral Tablet (Fosamax) Take 1 Tablet by mouth in the morning. with 8 oz. water 30 minutes before first meal of the day. Remain upright for 30 min after taking tablet.. 90 Tablet 1 Atorvastatin Calcium 20 MG Oral Tablet (Lipitor) Take 1 Tablet by mouth in the morning. 90 Tablet 1 B-12 1000 MCG Oral Tablet Take 1 Tablet by mouth every evening. 90 Tablet 1 Fluticasone Propionate HFA 220 MCG/ACT Inhalation Aerosol (Flovent HFA) USE 1 INHALATION BY MOUTH 2TIMES A DAY 36 g 1 Levothyroxine Sodium 112 MCG Oral Tablet (Levoxyl) Take 1 Tablet by mouth daily first thing in the morning. (at least 30 min prior to breakfast or other meds) 90 Tablet 1 metFORMIN HCl 500 MG Oral Tablet (Glucophage) Take 1 Tablet by mouth 2 times a day with morning andevening meals. 180 Tablet 1 Metoprolol Succinate ER 25 MG Oral Tablet Extended Release 24 Hour (toPROL XL) Take 1.5 Tablets by mouth in the morning. 135 Tablet 1 Montelukast Sodium 10 MG Oral Tablet (Singulair) Take 1 Tablet by mouth in the morning. 90 Tablet 1 Polyethylene Glycol 3350 17 GM/SCOOP Oral Powder (MiraLax) Take 17 g by mouth in the morning. Dissolve one heaping tablespoon in 8 ounces of water or juice.. 507 g 1 Potassium Chloride Pat ER 10 MEQ Oral Tablet Extended Release Take 1 Tablet by mouth in the morning and 1 Tablet at noon and 1 Tablet before bedtime. 270 Tablet 1 Pregabalin 25 MG Oral Capsule (Lyrica) Take 1 Capsule by mouth in the morning and 1 Capsule before bedtime. 180 Capsule 1 Venlafaxine HCl ER 150 MG Oral Capsule Extended Release 24 Hour (Effexor XR) TAKE ONE CAPSULE BY MOUTH DAILY. DO NOT CUT, CRUSH OR CHEW. 90 Capsule 1 Venlafaxine HCl ER 75 MG Oral Capsule Extended Release 24 Hour (Effexor XR) TAKE ONE CAPSULE BY MOUTH DAILY. DO NOT CUT, CRUSH, OR CHEW. 90 Capsule 1 Galantamine Hydrobromide 12 MG Oral Tablet (Razadyne) Take 1 Tablet by mouth in the morning and 1 Tablet before bedtime. 180 Tablet 1 Melatonin 5 MG Oral Capsule Take 1 Capsule by mouth at bedtime. 90 Capsule 1 Memantine HCl 10 MG Oral Tablet (Namenda) Take 1 Tablet by mouth 2 times a day with morning and evening meals. 180 Tablet 1 Primidone 50 MG Oral Tablet (Mysoline) 1 tab (50 mg) in the morning and 2 tablets (100 mg) in the evening. 270 Tablet 3 Caltrate 600+D Plus Minerals 600-800 MG-UNIT Oral Tablet Chewable Take 1 Tablet by mouth daily. Solifenacin Succinate 10 MG Oral Tablet (VESIcare) Take 1 Tablet by mouth in the morning. 90 Tablet1 No current facility-administered medications for this visit. Past Medical History: Diagnosis Date Alzheimer's dementia (HCC) Asthma Hypothyroidism Kidney stones Tremor Type 2 diabetes mellitus (HCC) Urinary incontinence Past Surgical History: Procedure Laterality Date REMOVE CATARACT, INSERT LENS PROSTH Right 09/06/2022 right EXTRACAPSULAR CATARACT REMOVAL WITH INTRAOCULAR LENS performed by Slava Colón MD at [facility] REMOVE CATARACT, INSERT LENS PROSTH Left 09/27/2022 left EXTRACAPSULAR CATARACT REMOVAL WITH INTRAOCULAR LENS performed by Slava Colón MD at OR [facility] REMOVE GALLBLADDER Review of patient's allergies indicates: Allergen Reactions Gabapentin Diarrhea Pollen Propranolol Diarrhea No family history on file. No family status information on file. Social History Tobacco Use Smoking status: Never Passive exposure: Past Smokeless tobacco: Never Substance Use Topics Alcohol use: No Vaping/E-Cigarette Use Vaping/E-Cigarette Substances Vaping/E-Cigarette Devices REVIEW OF SYSTEMS: Review of Systems Constitutional: Negative for chills, fatigue, fever and unexpected weight change. Respiratory: Negative for cough, chest tightness, shortness of breath and wheezing. Cardiovascular: Negative for chest pain, palpitations and leg swelling. Gastrointestinal: Negative for abdominal pain, constipation, diarrhea, nausea and vomiting. Musculoskeletal: Negative for arthralgias, gait problem and joint swelling. Skin: Negative for color change, pallor and rash. OBJECTIVE: BP 130/80 | Pulse 66 | Temp 36.3 C (97.3 F) (Tympanic) | Resp 13 | Ht 1.651 m (5' 5") | Wt 113.5 kg (250 lb 3.2 oz) | SpO2 96% | BMI 41.64 kg/m | BSA 2.28 m PHYSICAL EXAM: Physical Exam Constitutional: General: She is not in acute distress. Appearance: She is well-developed. Cardiovascular: Rate and Rhythm: Normal rate and regular rhythm. Heart sounds: Normal heart sounds. No murmur heard. No friction rub. No gallop. Pulmonary: Effort: Pulmonary effort is normal. No respiratory distress. Breath sounds: Normal breath sounds. No wheezing or rales. Abdominal: General: Bowel sounds are normal. There is no distension. Palpations: Abdomen is soft. Tenderness: There is no abdominal tenderness. There is no guarding. Musculoskeletal: General: No tenderness or deformity. Normal range of motion. Skin: General: Skin is warm and dry. Coloration: Skin is not pale. Findings: No erythema or rash. Neurological: Mental Status: She is alert and oriented to person, place, and time. ASSESSMENT/PLAN: (E11.9) Type 2 diabetes mellitus with hemoglobin A1c goal of less than 7.0% (HCC) (primary encounter diagnosis) Plan: TELEMEDICINE DIABETIC EYE, DIABETIC EYE EXAM Pt doing well. A1C controlled. Will recheck at next visit. Continue on metformin. Monitor stools. She feels this is tolerable for now. (G30.0, F02.80) Early onset Alzheimer's dementia without behavioral disturbance (HCC) (F41.1) DWIGHT (generalized anxiety disorder) (F42.8) Other obsessive-compulsive disorder Plan: Pt encouraged to complete waiver process. Encouraged to take part in crafts at her facility. Seems to be at baseline memory price. (Z13.9) Risk and functional assessment Plan: see nursing note. (Z23) Need for prophylactic vaccination and inoculation against influenza Plan: INFLUENZA VACC, QUAD, HIGH DOSE (FLUZONE HD) Vaccine given. See admin record. Follow-up: 3 months Total time today including reviewing chart before the visit, pertinent labs, imaging reports, face to face time, and documentation time was 34 minutes. Kimberlyn Brennan DO * Leora Bustillos LPN - 05/26/2023 2:29 PM EDT Patient presents for follow up, voices no complaints. * Leora Bustillos LPN - 05/26/2023 2:27 PM EDT PRE - ADMINISTRATION DOCUMENTATION Are you experiencing any cold symptoms or fever? No Have you had Guillain-[place] Syndrome (an illness that causes paralysis) within the last 6 weeks? No Have you had the flu shot in the past? YES Have you ever had a reaction to the flu shot? No Leora Bustillos LPN, 05/26/2023 2:27 PM Immunization Administration Documentation Time Out Procedure Performed: Yes Patient Identified (Ask Name/Date of ): Yes Does the patient have a fever greater than 101 degrees today? No Patient allergic to latex? No VFC Stock: No Immunization(s) verified: Yes, Immunization Name: Flu, VIS Sheet(s) given: Yes Verified Side and Site: Yes Verified Shot(s) with Parent(s)/Patient: Yes documented in this encounter Nursing Notes * Leora Bustillos LPN - 05/26/2023 2:27 PM EDT Patient presents for follow up, voices no complaints. documented in this encounter Plan of Treatment Upcoming Encounters Date Type Specialty Care Team Description 08/08/2023 Nurse Only Ancillary College, Nurse Annual Wellness Visit [address] [place] [address] 09/01/2023 Office Visit Family Medicine Kimberlyn Brennan DO [address] [place] [address] Health Maintenance Due Date Last Done Comments Cologuard 2000 Colonoscopy 2000 Colorectal Cancer Screening 2000 Fecal Occult Blood Test 2000 Sigmoidoscopy 2000 *SPIROMETRY ONCE FOR ASTHMA-ADULT 10/18/2019 DIABETES-EYE EXAM 03/10/2023 03/10/2022, , 11/08/2019, Additional history exists COVID-19 Vaccine ( season) 2023 08/30/2022, 12/26/2020 Mammogram 05/27/2023 Postponed from 1995 (Patient Declined After Education) HbA1c 09/03/2023 03/03/2023, 02/0 03/2022, 12/01/2020, Additional history exists Diabetic Foot Exam 12/03/2023 12/02/2022, 0 02/24/2022, 12/01/2020, Additional history exists Depression Screening 03/03/2024 03/03/2023 GFR 03/03/2024 03/03/2023, 0 03/2022, 12/01/2020, Additional history exists TSH 03/03/2024 03/03/2023, 01/20, 09/28/2021, Additional history exists Albumin/Creatinine Ratio 03/10/2024 023, 09/28/2021, 06/01/2020, Additional history exists DXA Scan 03/15/2024 03/15/2022 Lipid Panel 03/03/2028 03/03/2023, 0 03/2022, 06/01/2020, Additional history exists DTaP,Tdap,and Td Vaccines (2 - Td or Tdap) 03/14/2028 03/14/2018 Pap Smear Discontinued 03/14/2018 (Declined) Zoster Vaccines Completed 08/28/2020, 02/2020, 01/07/2015 Pneumococcal Vaccine: 65+ Years Completed 02/24/2022, 03/14/2018 VITAMIN D LEVEL ONCE IN A LIFETIME-USE SMARTSET# [id number] Completed 03/03/2023 Influenza Vaccine (FLU shot) Completed 05/26/2023, 04/21/2022, 08/26/2021, Additional history exists GARDASIL-HPV IMMUNIZATION SERIES Aged Out No longer eligible based on patient's age to complete this topic Hepatitis B Aged Out No longer eligi ble based on patient's age to complete this topic MENINGOCOCCAL (MENACTRA/MENVEO) Aged Out No longer eligible based on patient's age to complete this topic documented as of this encounter Medical Devices Implanted Type Area Laboratory Chief Device Identifier Shelf Expiration Date Model / Serial / Lot Lens Intraoc 21.5 - [id number] - [id number] Implanted:Qty: 1 on 09/06/2022 by Slava Colón MD at [facility] Right: Eye [employer] LOMB 03/20/2027 [id number] / [id number] / [id number] Lens Intraoc 23.0 - [id number] - [id number] Implanted:Qty: 1 on 09/27/2022 by KatarzynaSlava wyatt MD at [facility] Left: Eye BAUSCH & LOMB 06/20/2027 [id number] / [id number] / documented as of this encounter Visit Diagnoses Diagnosis Type 2 diabetes mellitus with hemoglobin A1c goal of less than 7.0% (HCC)- Primary Early onset Alzheimer's dementia without behavioral disturbance (HCC) DWIGHT (generalized anxiety disorder) Generalized anxiety disorder Other obsessive-compulsive disorder Risk and functional assessment Screening for unspecified condition Need for prophylactic vaccination and inoculation against influenza documented in this encounter Advance Directives Documents on File Type Date Recorded Patient Federal Mediation Commissioner Expl anation Advance Directives and Living Will [...] the patient have Health Care Power of Seamstress Fitter? No Code Status History Code Status Date Activated Date Inactivated Comments No Code 09/06/2022 7:37 AM 09/06/2022 1:55 PM This order reflects the patients wishes and were consensually agreed upon. Question Answer Comments Discussion of Advance Directives occurred with: Patient Does the patient have a Living Will? No Does the patient have Health Care Power of Seamstress Fitter? No Care Teams Supportability Engineer Relationship Specialty Start Date End Date Kimberlyn Brennan, DO [address] [place] [address] PCP - General Family Medicine 05/17/23 documented as of this encounter
--- OUTSIDE RECORDS SUMMARY | 2023-08-17 23:10 | External Medical Summary | Summary of Care ---
Author Name Unknown Organization [facility] Address [address] [place] [address] Phone [phone] Care Team Providers Care Sprinkler Installer Name Role Phone Kimberlyn Brennan DO Primary Care Provider Reason for Visit * Reason Onset Date Comments Follow Up Medication Administration 05/26/2023 Flu an d/or Pneumo Inj Encounter Details Date Type Department Care Team Description 05/26/2023 [facility] [address] [place] [address] Kimberlyn Brennan DO [address] [place] [address] Type 2 diabetes mellitus with hemoglobin A1c [...] as of this encounter (statuses as of 06/01/2023) Medications Medication Sig Dispensed Refills Start Date [...] as of this encounter (statuses as of 06/01/2023) Active Problems Problem Noted Date Hypothyroidism 11/10/2022 [...] as of this encounter (statuses as of 06/01/2023) Resolved Problems Problem Noted Date Resolved Date Type 2 diabetes mellitus wit h diabetic peripheral angiopathy without gangrene 02/24/2022 04/21/2022 Type 2 diabetes mellitus wit h diabetic peripheral angiopathy without gangrene 02/24/2022 04/21/2022 Acquired hypothyroidism 10/16/2019 09/07/19 23 Body mass index (BMI) of 40.0 to 44.9 in adult 1 03/03/2022 Overview: Per Obesity protocol #1 documented as of this encounter (statuses as of 06/01/2023) Immunizations Name Administration Dates Next Due Covid-19 Ad26, Single Dose (Murphy/J&J) 021 Covid-19, Mrna, Lnp-s, Pf, B ivalent, 30 Mcg, IM, 12 yrs and above (Pfizer) 08/30/2022 Pneumococcal Conjugate Vacci ne, 20-valent ([id number]) 02/24/2022 Pneumococcal Polysaccharide PPV23 (Pneumovax) 03/14/2018 SEASONAL [...] encounter Patient Instructions * Patient Instructions* Leora Bustlilos LPN - 05/26/2023 2:24 PM EDT Patient [...] 10 times. Repeat this throughout the day. [employer] Patient Education Copyright 2008 - 2010 Jordan [...] Early onset Alzheimer's dementia without behavioral disturbance ([facility]) G30.0, F02.80 Type 2 diabetes mellitus with hemoglobin A1c goal of less than 7.0% ([facility]) E11.9 DWIGHT (generalized anxiety disorder) F41.1 Mild persistent asthma without complication J45.30 Other obsessive-compulsive disorder F42.8 Hyperlipidemia, unspecified E78.5 Type 2 diabetes mellitus with diabetic peripheral angiopathy without gangrene ([facility]) E11.51 Morbid obesity with body mass index (BMI) of 40.0 to 44.9 in adult ([facility]) E66.01, Z68.41 Age-related osteoporosis without current pathological fracture M81.0 Essential (primary) hypertension I10 Diabetic neuropathy ([facility]) E11.40 Diabetes mellitus with cataract ([facility]) E11.36 Hypothyroidism E03.9 Current Outpatient Medications Medication [...] performed by Slava Colón MD at [facility] REMOVE CATARACT, INSERT LENS PROSTH Left 09/27/2022 left EXTRACAPSULAR CATARACT REMOVAL WITH INTRAOCULAR LENS performed by Slava Colón MD at [facility] REMOVE GALLBLADDER Review of patient's allergies indicates: [...] symptoms or fever? No Have you had Guillain-[place] Syndrome (an illness that causes paralysis) within [...] voices no complaints. documented in this encounter Miscellaneous Notes * Addendum Note - CARLITOS Quezada - 06/01/2023 11:39 AM EDTAddended by: BOB OCOK on: 06/01/2023 11:39 AM Modules accepted: Orders documented in this encounter Plan of Treatment Upcoming Encounters Date Type Specialty Care Team Description 08/08/2023 Nurse Only Ancillary College, Nurse Annual Wellness Visit [address] [place] [address] 09/01/2023 Office Visit Family Medicine Kimberlyn Brennan, DO [address] [place] [address] Health Maintenance Due Date Last Done Comments [...] Screening 05/26/2024 05/26/2023 Lipid Panel 03/03/2028 03/03/2023, 020 03/2022, 06/01/2020, Additional history exists DTaP,Tdap,and Td Vaccines (2 - Td or Tdap) 03/14/2028 03/14/2018 Pap Smear Discontinued 03/14/2018 (Declined) Zoster Vaccines Completed 08/28/2020, 1102/2020, 01/07/2015 Pneumococcal Vaccine: 65+ Years Completed 02/24/2022, 03/14/2018 VITAMIN D LEVEL ONCE IN A LIFETIME-USE SMARTSET# [id number] Completed 03/03/2023 Influenza Vaccine (FLU shot) Completed [...] this encounter Medical Devices Implanted Type Area Ct Mri Technologist Device Identifier Shelf Expiration Date Model / Serial / Lot Lens Intraoc 21.5 - [id number] - [id number] Implanted:Qty: 1 on 09/06/2022 by Slava Colón MD at [facility] Right: Eye [employer] LOMB 03/20/2027 [id number] / [id number] / [id number] Lens Intraoc 23.0 - [id number] - [id number] Implanted:Qty: 1 on 09/27/2022 by Slava Colón MD at [facility] Left: Eye BAUSCH [employer] LOMB 06/20/2027 [id number] / [id number] / documented as of this encounter Visit Diagnoses Diagnosis Type 2 diabetes mellitus with hemoglobin A1c goal of less than 7.0% ([facility])- Primary Early onset Alzheimer's dementia without behavioral disturbance ([facility]) DWIGHT (generalized anxiety disorder) Generalized anxiety disorder Other obsessive-compulsive disorder Risk and functional assessment Screening for unspecified condition Need for prophylactic vaccination and inoculation against influenza documented in this encounter Advance Directives Documents on File Type Date Recorded Patient Dross Puller Expl anation Advance Directives and Living Will [...] the patient have Health Care Power of Saw Feeder? No Code Status History Code Status Date Activated Date Inactivated Comments No Code 09/06/2022 7:37 AM 09/06/2022 1:55 PM This order reflects the patients wishes and were consensually agreed upon. Question Answer Comments Discussion of Advance Directives occurred with: Patient Does the patient have a Living Will? No Does the patient have Health Care Power of Saw Feeder? No Care Teams Sprinkler Installer Relationship Specialty Start Date End Date Kimberlyn Brennan, DO [address] [place] [address] PCP - General Family Medicine 05/17/23 documented as of this encounter
--- OUTSIDE RECORDS SUMMARY | 2023-08-17 23:10 | External Medical Summary | Summary of Care ---
Author Name Unknown Organization [facility] Address [address] [place] [address] Phone [phone] Care Team Providers Care Dry Heat Room Attendant Name Role Phone Kimberlyn Erikcson DO Primary Care Provider Reason for Visit * Reason Onset Date Comments Medication Refill 07/18/2023 Encounter Details Date Type Department Care Team (Late st Contact Info) Description 07/18/2023 Refill Family Practice [address] [place] [address] [place] [phone] Kimberlyn Erickson DO [address] [place], [place] [id number] Allergic rhinitis due to other allergic trigger, unspecified seasonality; Type 2 diabetes mellitus with hemoglobin A1c goal of less than 7.0% ([facility]); Acquired hypothyroidism Allergies Active Allergy Reactions Criticality Noted Date [...] other meds) 90 Tablet 1 07/18/2023 Active Levothyroxine Sodium 112 MCG Oral Tablet (Levoxyl)Indication s:Acquired hypothyroidism Take 1 Tablet by mouth daily first thing in the morning. (at least 30 min prior to breakfast or other meds) 90 Tablet 1 01/20/2023 3 Discontinu ed(Refill) metFORMIN HCl 500 MG Oral Tablet (Glucophage)Indicat ions:Type 2 diabetes mellitus with hemoglobin A1c goal of less than 7.0% (HCC) Take 1 Tablet by mouth 2 times a day with morning and evening meals. 180 Tablet 1 01/20/2023 3 Discontinu ed(Refill) Montelukast Sodium 10 MG Oral Tablet (Singulair)Indicati ons:Allergic rhinitis due to other allergic trigger, unspecified seasonality Take 1 Tablet by mouth in the morning. 90 Tablet 1 01/20/2023 3 Discontinu ed(Refill) documented as [...] (Pfizer) 08/30/2022 Pneumococcal Conjugate Vacci ne, 20-valent ([id number]) 02/24/2022 Pneumococcal Polysaccharide PPV23 (Pneumovax) 03/14/2018 SEASONAL [...] Miscellaneous Notes * Telephone Encounter - Divya Daniels, [facility] - 07/18/2023 9:45 AM ESTSigned Prescriptions: Disp Refills Montelukast Sodium 10 MG Oral Tablet (Sing*90 Tab*1 Sig: Take 1 Tablet by mouth daily. Authorizing Provider: KIMBERLYN ERICKSON Ordering User: DIVYA DANIELS metFORMIN HCl 500 MG Oral Tablet (Glucopha*180 Ta*1 Sig: Take 1 Tablet by mouth 2 times a day with morning and evening meals. Authorizing Provider: KIMBERLYN ERICKSON Ordering User: DIVYA DANIELS Levothyroxine Sodium 112 MCG Oral Tablet (*90 Tab*1 Sig: Take 1 Tablet by mouth daily first thing in the morning. (at least 30 min prior to breakfast or other meds) Authorizing Provider: KIMBERLYN ERICKSON Ordering User: DIVYA DANIELS * Telephone Encounter - Shanthi Maya [facility] - 07/18/2023 9:34 AM EST Pharmacy request priority Did you pend patient's preferred pharmacy and medication before forwarding?yes Pharmacy: [id number] [address] [facility] Pending Prescriptions: Disp Refills Montelukast Sodium 10 MG Oral Tablet (Sin*90 Tab*1 Sig: Take 1 Tablet by mouth in the morning. metFORMIN HCl 500 MG Oral Tablet (Glucoph*180 Ta*1 Sig: Take 1 Tablet by mouth 2 times a day with morning and evening meals. Levothyroxine Sodium 112 MCG Oral Tablet *90 Tab*1 Sig: Take 1 Tablet by mouth daily first thing in the morning. (at least 30 min prior to breakfast or other meds) Last Visit: 05/26/2023 (in office), Visit date not found (telemedicine) Next Visit: 09/01/2023 If no future appointments scheduled, and last appointment is greater than a year ago, please schedule patient for a follow-up appointment Last date the medication was ordered: 01/20/2023 Is this request for a controlled substance?No Urine Drug Screen:No results found for this or any previous visit. Patient Phone Numbers mobile [phone] Labs: Lab Results Component Value Date/Time CREAT [...] 1:00 PM EST Nurse Only Ancillary [facility] [address] [place] [address] College, Nurse Annual Wellness Visit [address] [address] 09/01/2023 3:00 PM EST Office Visit Family Practice [facility] [address] [place] [address] Kimberlyn Erickson, [address] [place] [address] Health Maintenance Due Date Last Done Comments Mammogram 1995 Cologuard 2000 Colonoscopy 2000 Colorectal Cancer Screening 2000 Fecal Occult Blood Test 2000 Sigmoidoscopy 2000 Hepatitis B (1 of 3 - Risk 3-dose series) 2015 *SPIROMETRY ONCE FOR ASTHMA-ADULT 10/18/2019 Diabetic Eye Exam 03/10/2023 03/10/2022, , 11/08/2019, Additional history exists COVID-19 Vaccine ( season) 2023 08/30/2022, 12/26/2020 HbA1c 09/03/2023 03/03/2023, 020 03/2022, 12/01/2020, Additional history exists Diabetic Foot Exam 12/03/2023 12/02/2022, 0 02/24/2022, 12/01/2020, Additional history exists GFR 03/03/2024 03/03/2023, 0 03/2022, 12/01/2020, Additional [...] D LEVEL ONCE IN A LIFETIME-USE SMARTSET# [id number] Completed 03/03/2023 Influenza Vaccine (FLU shot) Completed 05/26/2023, 04/21/2022, 08/26/2021, Additional history exists GARDASIL-HPV IMMUNIZATION SERIES Aged Out No longer eligible based on patient's age to complete this topic MENINGOCOCCAL (MENACTRA/MENVEO) Aged Out No longer eligible based on patient's age to complete this topic documented as of this encounter Medical Devices Implanted Type Area [employer] Athletic Director Device Identifier Shelf Expiration Date Model / Serial / Lot Lens Intraoc 21.5 - [id number] - [id number] Implanted:Qty: 1 on 09/06/2022 by Slava Colón MD at [facility] Right: Eye [employer]OM[employer] 03/20/2027 [id number] / [id number] / [id number] Lens Intraoc 23.0 - [id number] - [id number] Implanted:Qty: 1 on 09/27/2022 by Slava Colón MD at [facility] Left: Eye BAUSCH [employer] LOMB 06/20/2027 [id number] / [id number] / documented as of this encounter Visit Diagnoses Diagnosis Allergic rhinitis due to other allergic trigger, unspecified seasonality Type 2 diabetes mellitus with hemoglobin A1c goal of less than 7.0% ([facility]) Acquired hypothyroidism Unspecified hypothyroidism documented in this encounter Advance Directives Documents on File Type Date Recorded Patient Household Manager Expl anation Advance Directives and Living Will [...] the patient have Health Care Power of Bookstore Clerk? No Code Status History Code Status Date Activated Date Inactivated Comments No Code 09/06/2022 7:37 AM 09/06/2022 1:55 PM This order reflects the patients wishes and were consensually agreed upon. Question Answer Comments Discussion of Advance Directives occurred with: Patient Does the patient have a Living Will? No Does the patient have Health Care Power of Bookstore Clerk? No Care Teams Dry Heat Room Attendant Relationship Specialty Start Date End Date Kimberlyn Erickson DO [address] [facility] [place] [address] PCP - General Family Medicine 05/17/23 documented as of this encounter
--- OUTSIDE RECORDS SUMMARY | 2023-08-17 23:11 | External Medical Summary ---
Author Name Unknown Address Unknown Organization K01:[facility]OR[facility]ORY [facility] [place] - [address] [place] [address] Laboratory Report Ordering Provider Test Date Status DRE BARNHART 03/03/2023 15:33:08 Final Deficient: <20 ng/mL
Ins ufficient: 20-29 ng/mL
Recommended/Optimum:30-50 ng/mL

Vitamin D intoxication is rare. If suspicious of Vitamin D toxicity, evaluation of serum Calcium and PTH is recommended. Observation Date Value Abnormality Reference (Units ) Status 25-OH Vitamin D total 03/03/2023 15:33:08 29 >19 (ng/mL) Final Performing Location [facility]ORY [facility] [place] - [address] [place] [address]
--- OUTSIDE RECORDS SUMMARY | 2023-08-17 23:11 | External Medical Summary | Summary of Care ---
Author Name Unknown Organization [facility] Address [address] [place] [address] Phone [phone] Care Team Providers Care Director Chemistry Name Role Phone Kimberlyn Brennan DO Primary Care Provider [phone] Reason for Visit * Reason Onset Date Comments Test Results 03/13/202303/14 Encounter Details Date Type Department Care Team Description 03/13/2023 Telephone Family Practice [facility] [address] [place] [phone] Kimberlyn Brennan DO [address] [place], [place] [id number] Test Results (03/14) Allergies Active Allergy Reactions Severity Noted Date Comments Gabapentin Diarrhea 09/20/2022 Pollen 05/15/2011 Propranolol Diarrhea 09/20/2022 documented as of this encounter (statuses as of 03/14/2023) Medications Medication Sig Dispensed Refills Start Date [...] the morning. 90 Tablet 1 01/20/2023 Active B-12 1000 MCG Oral TabletIndications:Vi [...] as of this encounter (statuses as of 03/14/2023) Active Problems Problem Noted Date Hypothyroidism 11/10/2022 [...] as of this encounter (statuses as of 03/14/2023) Resolved Problems Problem Noted Date Resolved Date Type 2 diabetes mellitus wit h diabetic peripheral angiopathy without gangrene 02/24/2022 04/21/2022 Type 2 diabetes mellitus wit h diabetic peripheral angiopathy without gangrene 02/24/2022 04/21/2022 Acquired hypothyroidism 10/16/2019 09/07/19 23 Body mass index (BMI) of 40.0 to 44.9 in adult 1 03/03/2022 Overview: Per Obesity protocol #1 documented as of this encounter (statuses as of 03/14/2023) Immunizations Name Administration Dates Next Due Covid-19 Ad26, Single Dose (DotBlu/J&J) 021 Covid-19, Mrna, Lnp-s, Pf, B ivalent, 30 Mcg, IM, 12 yrs and above (rapt.fm) 08/30/2022 Pneumococcal Conjugate Vaccine, 20-valent (Prevn ar20) 02/24/2022 Pneumococcal Polysaccharide PPV23 (Pneumovax) Seasonal Influenza, Quadrivalent Hd (Fluzone Hd) 04/21/2022,08/26/2021 Seasonal Influenza, Quadriva lent, No Preserve, 6 Mons & Above, IM 07/15/2019,06/29/2018 Seasonal Influenza, Quadrivalent, No Preserve, I M 05/29/2020 TDAP (age 10 and older)(Boostrix) 03/14/2018 [...] got money to buy more. Never true 03/03/2023 Within the past 12 months, t he food you bought just didn't last and you didn't have money to get more. Never true 03/03/2023 Sex Assigned at Date Recorded Female 04/15/2019 1:08 PM E DT Job Start Date Occupation Industry Not on file Not on file Not on file documented as of this encounter Miscellaneous Notes * Telephone Encounter - Kimberlyn Brennan DO - 03/14/2023 1:28 PM EDT Noted. * Telephone Encounter - Leora Bustillos LPN - 03/14/2023 12:30 PM EDT Patient is aware and will comply. Patient will think about seeing guest service aide, she is not having any bleeding but does have slight discomfort. Thank you * Telephone Encounter - Kimberlyn Brennan DO - 03/13/2023 9:50 PM EDT Please let pt know: 1. Ultrasound showed multiple uterine fibroids. If she is having pain or bleeding, will need to seegyn. 2. Her lab studies were ok with exception of low calcium. She should start a calcium with vitamin Dsupplement. We will recheck at a future visit as I know she is a tough stick. documented in this encounter Plan of Treatment Upcoming Encounters Date Type Specialty Care Team Description 04/20/2023 Nurse Only Ancillary College, Nurse Annual Wellness [facility] [address] 05/26[facility]23 [facility] [address] Health Maintenance Due Date Last Done Comments Mammogram 1995 Cologuard 2000 Colonoscopy 2000 Colorectal Cancer Screening 2000 Fecal Occult Blood Test 2000 Sigmoidoscopy 2000 *SPIROMETRY ONCE FOR ASTHMA-ADULT 10/18/2019 DIABETES-EYE EXAM 03/10/2023 03/10/2022, , 11/08/2019, Additional history exists Influenza Vaccine (FLU shot) (#1) 2023 04/21/2022, 08/26/2021, 05/29/2020, Additional history exists HbA1c 09/03/2023 03/03/2023, 02/0 03/2022, 12/01/2020, Additional history exists DIABETES-FOOT EXAM 12/03/2023 12/02/2022, 0 02/24/2022, 12/01/2020, Additional history exists Depression Screening, Annual for Pts 12 and Over 03/03/2024 03/03/2023 GFR 03/03/2024 03/03/2023, 02/0 03/2022, 12/01/2020, Additional history exists TSH 03/03/2024 03/03/2023, 062 12/2021, 09/28/2021, Additional history exists Albumin/Creatinine Ratio 03/10/2024 023, 09/28/2021, 06/01/2020, Additional history exists DXA Scan 03/15/2024 03/15/2022 Lipid Panel 03/03/2028 03/03/2023, 02/0 03/2022, 06/01/2020, Additional history exists DTaP,Tdap,and Td Vaccines (2 - Td or Tdap) 03/14/2028 03/14/2018 Pap Smear Discontinued 03/14/2018 (Declined) Zoster Vaccines Completed 08/28/2020, 11/0 02/2020, 01/07/2015 Pneumococcal Vaccine: 65+ Years Completed 02/24/2022, 03/14/2018 COVID-19 Vaccine Completed 08/30/2022, 12/26/2020 VITAMIN D LEVEL ONCE IN A LIFETIME-USE SMARTSET# [id number] Completed 03/03/2023 GARDASIL-HPV IMMUNIZATION SERIES Aged Out No longer eligible based on patient's age to complete this topic Hepatitis B Aged Out No longer eligi ble based on patient's age to complete this topic MENINGOCOCCAL (MENACTRA/MENVEO) Aged Out No longer eligible based on patient's age to complete this topic documented as of this encounter Medical Devices Implanted Type Area Veterinary Hospital Attendant Device Identifier Shelf Expiration Date Model / Serial / Lot Lens Intraoc 21.5 - [id number] - [id number] Implanted:Qty: 1 on 09/06/2022 by Slava Colón MD at OR [facility] Right: Eye BAUSCH & LOMB 03/20/2027 [id number] / [id number] / [id number] Lens Intraoc 23.0 - [id number] - [id number] Implanted:Qty: 1 on 09/27/2022 by Slava Colón MD at OR [facility] Left: Eye BAUSCH & LOMB 06/20/2027 [id number] / [id number] / documented as of this encounter Advance Directives Documents on File Type Date Recorded Patient Auto Striper Expl anation Advance Directives and Living Will [...] the patient have Health Care Power of Strategic Partnership Specialist? No Code Status History Code Status Date Activated Date Inactivated Comments No Code 09/06/2022 7:37 AM 09/06/2022 1:55 PM This order reflects the patients wishes and were consensually agreed upon. Question Answer Comments Discussion of Advance Directives occurred with: Patient Does the patient have a Living Will? No Does the patient have Health Care Power of Strategic Partnership Specialist? No Care Teams Director Chemistry Relationship Specialty Start Date End Date Kimberlyn Brennan, [address] [place] [address] PCP - General Family Medicine 02/24/22 documented as of this encounter
--- OUTSIDE RECORDS SUMMARY | 2023-08-17 23:11 | External Medical Summary | Summary of Care ---
Author Name Unknown Organization [facility] Address [address] [place] [address] Phone [phone] Care Team Providers Care Mopper Name Role Phone JezKimberlyn mendez Keila DA SILVA Primary Care Provider Encounter Details Date Type Department Care Team Description 03/24/2023 Family PsychologistManufacturing Engineering Director Practice [address] [facility], [address] [address] Radha Villalta, RN Medical home patient encounter* Allergies Active Allergy Reactions Severity Noted Date Comments Gabapentin Diarrhea 09/20/2022 Pollen 05/15/2011 Propranolol Diarrhea 09/20/2022 documented as of this encounter (statuses as of 03/24/2023) Medications Medication Sig Dispensed Refills Start Date [...] as of this encounter (statuses as of 03/24/2023) Active Problems Problem Noted Date Hypothyroidism 11/10/2022 [...] as of this encounter (statuses as of 03/24/2023) Resolved Problems Problem Noted Date Resolved Date Type 2 diabetes mellitus wit h diabetic peripheral angiopathy without gangrene 02/24/2022 04/21/2022 Type 2 diabetes mellitus wit h diabetic peripheral angiopathy without gangrene 02/24/2022 04/21/2022 Acquired hypothyroidism 10/16/2019 09/07/19 23 Body mass index (BMI) of 40.0 to 44.9 in adult 1 03/03/2022 Overview: Per Obesity protocol #1 documented as of this encounter (statuses as of 03/24/2023) Immunizations Name Administration Dates Next Due Covid-19 Ad26, Single Dose (Bit9/J&J) 021 Covid-19, Mrna, Lnp-s, Pf, B ivalent, 30 Mcg, IM, 12 yrs and above ([place]) 08/30/2022 Pneumococcal Conjugate Vaccine, 20-valent (Prevn ar20) [...] on file documented as of this encounter Progress Notes * Radha Villalta RN - 03/24/2023 10:24 AM EDT Entered in Error documented in this encounter Plan of Treatment Upcoming Encounters Date Type Specialty Care Team Description 04/20/2023 Nurse Only Ancillary College, Nurse Annual Wellness Visit [address] [facility] [address] [place] [address] 05/26/2023 Office Visit Family Medicine Kimberlyn Brennan DO [address] [place] [address] Health Maintenance Due Date Last Done Comments [...] 12/01/2020, Additional history exists TSH 03/03/2024 03/03/2023, 2 12/2021, 09/28/2021, Additional history exists Albumin/Creatinine Ratio 03/10/2024 023, 09/28/2021, 06/01/2020, Additional history exists DXA Scan 03/15/2024 03/15/2022 Lipid Panel 03/03/2028 03/03/2023, 03/2022, 06/01/2020, Additional history exists DTaP,Tdap,and Td Vaccines (2 - Td or Tdap) 03/14/2028 03/14/2018 Pap Smear Discontinued 03/14/2018 (Declined) Zoster Vaccines Completed 08/28/2020, 02/2020, 01/07/2015 Pneumococcal Vaccine: 65+ Years Completed 02/24/2022, 03/14/2018 COVID-19 Vaccine Completed 08/30/2022, 12/26/2020 VITAMIN D LEVEL ONCE IN A LIFETIME-USE SMARTSET# [id number] Completed 03/03/2023 GARDASIL-HPV IMMUNIZATION SERIES Aged Out No longer eligible based on patient's age to complete this topic Hepatitis B Aged Out No longer eligi ble based on patient's age to complete this topic MENINGOCOCCAL (MENACTRA/MENVEO) Aged Out No longer eligible based on patient's age to complete this topic documented as of this encounter Medical Devices Implanted Type Area Clay Transporter Device Identifier Shelf Expiration Date Model / Serial / Lot Lens Intraoc 21.5 - [id number] - [id number] Implanted:Qty: 1 on 09/06/2022 by Slava Colón MD at OR [facility] Right: Eye BAUSCH & LOMB 03/20/2027 [id number] / [id number] / [id number] Lens Intraoc 23.0 - [id number] - [id number] Implanted:Qty: 1 on 09/27/2022 by Slava Colón MD at OR [facility] Left: Eye BAUSCH & LOMB 06/20/2027 [id number] / [id number] / documented as of this encounter Visit Diagnoses Diagnosis Medical home patient encounter- Primary Other specified examination documented in this encounter Advance Directives Documents on File Type Date Recorded Patient Compensation Intern Expl anation Advance Directives and Living Will [...] the patient have Health Care Power of Robotype Operator? No Code Status History Code Status Date Activated Date Inactivated Comments No Code 09/06/2022 7:37 AM 09/06/2022 1:55 PM This order reflects the patients wishes and were consensually agreed upon. Question Answer Comments Discussion of Advance Directives occurred with: Patient Does the patient have a Living Will? No Does the patient have Health Care Power of Robotype Operator? No Care Teams Mopper Relationship Specialty Start Date End Date Kimberlyn Brennan, [address] [place] [address] PCP - General Family Medicine 02/24/22 documented as of this encounter
--- OUTSIDE RECORDS SUMMARY | 2023-08-17 23:11 | External Medical Summary | Summary of Care ---
Author Name Unknown Organization [facility] Address [address] [place] [address] Phone [phone] Care Team Providers Care Legal Arbitrator Name Role Phone Kimberlyn Brennan Primary Care Provider + [phone] Reason for Visit * Reason Comments Outpatient Testing Encounter Details Date Type Department Care Team Description 04/03/2023 Laboratory Laboratory, [address] [address] [address], Specimen Drop [address] [place] [address] [place] [address] Diarrhea, unspecified type Allergies Active Allergy Reactions Severity Noted Date Comments Gabapentin Diarrhea 09/20/2022 Pollen 05/15/2011 Propranolol Diarrhea 09/20/2022 documented as of this encounter (statuses as of 04/03/2023) Medications Medication Sig Dispensed Refills Start Date [...] as of this encounter (statuses as of 04/03/2023) Active Problems Problem Noted Date Hypothyroidism 11/10/2022 [...] as of this encounter (statuses as of 04/03/2023) Resolved Problems Problem Noted Date Resolved Date Type 2 diabetes mellitus wit h diabetic peripheral angiopathy without gangrene 02/24/2022 04/21/2022 Type 2 diabetes mellitus wit h diabetic peripheral angiopathy without gangrene 02/24/2022 04/21/2022 Acquired hypothyroidism 10/16/2019 09/07/19 23 Body mass index (BMI) of 40.0 to 44.9 in adult 1 03/03/2022 Overview: Per Obesity protocol #1 documented as of this encounter (statuses as of 04/03/2023) Immunizations Name Administration Dates Next Due Covid-19 Ad26, Single Dose (Murphy/J&J) 021 Covid-19, Mrna, Lnp-s, Pf, B ivalent, 30 Mcg, IM, 12 yrs and above (Pfizer) 08/30/2022 Pneumococcal Conjugate Vaccine, 20-valent (Prevn ar20) [...] on file documented as of this encounter Plan of Treatment Upcoming Encounters Date Type Specialty Care Team Description 05/26/2023 Office Visit Family Medicine Kimberlyn Brennan, DO [address] [place] [address] 08/08/2023 Nurse Only Ancillary College, Nurse Annual Wellness Visit [address] [facility] [address] [place] [address] Pending Results Name Type Priority Associated Diagnoses Date /Time CLOSTRIDIUM DIFFICILE, PCR Lab Routine Diarrhea, unspecified type 04/03/2023 4:05 PM EDT GASTROINTESTINAL PATHOGEN PANEL, STOOL Lab Routine Diarrhea, unspecified type 04/03/2023 4:05 PM EDT GASTROINTESTINAL PATHOGEN PANEL PCR Lab Routine Diarrhea, unspecified type 04/03/2023 4:05 PM EDT GASTROINTESTINAL PATHOGEN PANEL CULTURE Lab Routine Diarrhea, unspecified type 04/03/2023 4:05 PM EDT Health Maintenance Due Date Last Done Comments [...] and Over 03/03/2024 03/03/2023 GFR 03/03/2024 03/03/2023, 020 03/2022, 12/01/2020, Additional [...] D LEVEL ONCE IN A LIFETIME-USE SMARTSET# [id number] Completed 03/03/2023 GARDASIL-HPV IMMUNIZATION SERIES Aged Out No longer eligible based on patient's age to complete this topic Hepatitis B Aged Out No longer eligi ble based on patient's age to complete this topic MENINGOCOCCAL (MENACTRA/MENVEO) Aged Out No longer eligible based on patient's age to complete this topic documented as of this encounter Medical Devices Implanted Type Area Electronic Masking System Operator Device Identifier Shelf Expiration Date Model / Serial / Lot Lens Intraoc 21.5 - [id number] - [id number] Implanted:Qty: 1 on 09/06/2022 by Slava Colón MD at OR [facility] Right: Eye BAUSCH & LOMB 03/20/2027 [id number] / [id number] / [id number] Lens Intraoc 23.0 - [id number] - [id number] Implanted:Qty: 1 on 09/27/2022 by Slava Colón MD at OR 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 No Code Status History Code Status Date Activated Date Inactivated Comments No Code 09/06/2022 7:37 AM 09/06/2022 1:55 PM This order reflects the patients wishes and were consensually agreed upon. Question Answer Comments Discussion of Advance Directives occurred with: Patient Does the patient have a Living Will? No Does the patient have Health Care Power of Switch Coupler? No Care Teams Legal Arbitrator Relationship Specialty Start Date End Date Kimberlyn Brennan, [address] [place] [address] PCP - General Family Medicine 02/24/22 documented as of this encounter
--- OUTSIDE RECORDS SUMMARY | 2023-08-17 23:11 | External Medical Summary | Summary of Care ---
Author Name Unknown Organization [facility] Address [address] [place] [address] Phone [phone] Care Team Providers Care Bag Shaker Name Role Phone Mika Kimberlyncandelario Pedraza DO Primary Care Provider + [phone] Reason for Visit * Reason Comments Outpatient Testing Encounter Details Date Type Department Care Team Description 03/03/2023 Laboratory Laboratory, [facility] [address] [place] [phone] [facility] [address] [place] [address] Acquired hypothyroidism; Type 2 diabetes mellitus with hemoglobin A1c goal of less than 7.0% ([facility]); Hyperlipidemia, unspecified hyperlipidemia type; Vitamin B 12 deficiency; Age-related osteoporosis without current pathological fracture; Pelvic pain in female Allergies Active Allergy Reactions Severity Noted Date Comments Gabapentin Diarrhea 09/20/2022 Pollen 05/15/2011 Propranolol Diarrhea 09/20/2022 documented as of this encounter (statuses as of 03/03/2023) Medications Medication Sig Dispensed Refills Start Date [...] the evening. 270 Tablet 3 01/25/2023 Active documented as of this encounter (statuses as of 03/03/2023) Active Problems Problem Noted Date Hypothyroidism 11/10/2022 [...] as of this encounter (statuses as of 03/03/2023) Resolved Problems Problem Noted Date Resolved Date Type 2 diabetes mellitus wit h diabetic peripheral angiopathy without gangrene 02/24/2022 04/21/2022 Type 2 diabetes mellitus wit h diabetic peripheral angiopathy without gangrene 02/24/2022 04/21/2022 Acquired hypothyroidism 10/16/2019 09/07/19 23 Body mass index (BMI) of 40.0 to 44.9 in adult 1 03/03/2022 Overview: Per Obesity protocol #1 documented as of this encounter (statuses as of 03/03/2023) Immunizations Name Administration Dates Next Due Covid-19 Ad26, Single Dose (ShareTracker/J&J) 021 Covid-19, Mrna, Lnp-s, Pf, B ivalent, 30 Mcg, IM, 12 yrs and above ([facility]) 08/30/2022 Pneumococcal Conjugate Vaccine, 20-valent (Prevn ar20) [...] Encounters Date Type Specialty Care Team Description 03/10/2023 Imaging Radiology 04/20/2023 Nurse Only Ancillary College, Nurse Annual Wellness Visit [address] [place] [address] 05/26/2023 Office Visit Family Medicine Kimberlyn Brennan, [address] [place] [address] Pending Results Name Type Priority Associated Diagnoses Date /Time TSH WITH FREE T4 IF INDICATED Lab Routine Acquired hypothyroidism 03/03/2023 3:33 PM EDT HEMOGLOBIN A1C Lab Routine Type 2 diabetes mellitus with hemoglobin A1c goal of less than 7.0% ([facility]) 03/03/2023 3:33 PM EDT COMPREHENSIVE METABOLIC PANEL Lab Routine Hyperlipidemia, unspecified hyperlipidemia type 03/03/2023 3:33 PM EDT LIPID PANEL WITH DIRECT LDL IF TG IS HIGH Lab Routine Hyperlipidemia, unspecified hyperlipidemia type 03/03/2023 3:33 PM EDT VITAMIN B12 Lab Routine Type 2 diabetes mellitus with hemoglobin A1c goal of less than 7.0% ([facility]) Vitamin B 12 deficiency 03/03/2023 3:33 PM EDT 25-HYDROXY VITAMIN D Lab Routine Age-related osteoporosis without current pathological fracture 03/03/2023 3:33 PM EDT CBC WITH WBC DIFFERENTIAL Lab Routine Pelvic pain in female 03/03/2023 3:33 PM EDT CBC Lab Routine Pelvic pain in female 03/03/2023 3:33 PM EDT DIFFERENTIAL, AUTOMATED Lab Routine Pelvic pain in female 03/03/2023 3:33 PM EDT Health Maintenance Due Date Last Done Comments Mammogram 1995 VITAMIN D LEVEL ONCE IN A LIFETIME-USE SMARTSET# [id number] 1995 Cologuard 2000 Colonoscopy 2000 Colorectal Cancer Screening 2000 Fecal Occult Blood Test 2000 Sigmoidoscopy 2000 *SPIROMETRY ONCE FOR ASTHMA-ADULT 10/18/2019 HbA1c 03/28/2022 09/28/2021, 11/19, 06/01/2020, Additional history exists Albumin/Creatinine Ratio 09/28/2022 022, 06/01/2020, 07/16/2019, Additional history exists GFR 09/28/2022 09/28/2021, 11/19, 06/01/2020, Additional history exists TSH 02/12/2023 02/12/2022, 0203/2022, 12/01/2020, Additional history exists DIABETES-EYE EXAM 03/10/2023 03/10/2022, , 11/08/2019, Additional history exists Influenza Vaccine (FLU shot) (#1) 2023 04/21/2022, 08/26/2021, 05/29/2020, Additional history exists DIABETES-FOOT EXAM 12/03/2023 12/02/2022, 0 02/24/2022, 12/01/2020, Additional history exists Depression Screening, Annual for Pts 12 and Over 12/03/2023 12/02/2022 DXA Scan 03/15/2024 03/15/2022 Lipid Panel 09/28/2026 09/28/2021, 05/21, 11/05/2018, Additional history exists DTaP,Tdap,and Td Vaccines (2 - Td or Tdap) 03/14/2028 03/14/2018 Pap Smear Discontinued 03/14/2018 (Declined) Zoster Vaccines Completed 08/28/2020, 02/2020, 01/07/2015 Pneumococcal Vaccine: 65+ Years Completed 02/24/2022, 03/14/2018 COVID-19 Vaccine Completed 08/30/2022, 12/26/2020 GARDASIL-HPV IMMUNIZATION SERIES Aged Out No longer eligible based on patient's age to complete this topic Hepatitis B Aged Out No longer eligi ble based on patient's age to complete this topic MENINGOCOCCAL (MENACTRA/MENVEO) Aged Out No longer eligible based on patient's age to complete this topic documented as of this encounter Medical Devices Implanted Type Area Cold Meat Chef Device Identifier Shelf Expiration Date Model / Serial / Lot Lens Intraoc 21.5 - [id number] - [id number] Implanted:Qty: 1 on 09/06/2022 by Slava Colón MD at OR [facility] Right: Eye BAUSCH & LOMB 03/20/2027 [id number] / [id number] / [id number] Lens Intraoc 23.0 - [id number] - [id number] Implanted:Qty: 1 on 09/27/2022 by Slava Colón MD at OR [facility] Left: Eye BAUSCH & LOMB 06/20/2027 [id number] / [id number] / documented as of this encounter Visit Diagnoses Diagnosis Acquired hypothyroidism Unspecified hypothyroidism Type 2 diabetes mellitus with hemoglobin A1c goal of less than 7.0% (HCC) Hyperlipidemia, unspecified hyperlipidemia type Vitamin B 12 deficiency Other B-complex deficiencies Age-related osteoporosis without current pathological fracture Senile osteoporosis Pelvic pain in female Unspecified symptom associated with female genital organs documented in this encounter Advance Directives Documents on File Type Date Recorded 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 No Code Status History Code Status Date Activated Date Inactivated Comments No Code 09/06/2022 7:37 AM 09/06/2022 1:55 PM This order reflects the patients wishes and were consensually agreed upon. Question Answer Comments Discussion of Advance Directives occurred with: Patient Does the patient have a Living Will? No Does the patient have Health Care Power of Maintenance Electrician? No Care Teams Bag Shaker Relationship Specialty Start Date End Date Kimberlyn Brennan, DO [address] [place] [address] PCP - General Family Medicine 02/24/22 documented as of this encounter
--- OUTSIDE RECORDS SUMMARY | 2023-08-17 23:11 | External Medical Summary ---
Author Name Unknown Address Unknown Organization [id number]:LABORATORY [facility] [place] - [address] [place] [address] Laboratory Report Ordering Provider Test Date Status DRE BARNHART 03/03/2023 15:33:08 Final Observation Date Value Abnormality Reference (Units ) Status Vitamin B12 03/03/2023 15:33:08 1681 Above high normal [id number] (pg/mL) Final Performing Location [facility]ORY [facility] [address] [facility] [address]
--- OUTSIDE RECORDS SUMMARY | 2023-08-17 23:11 | External Medical Summary ---
Author Name Unknown Address Unknown Organization [id number][place] [place] [address] [facility] [address] Laboratory Report Ordering Provider Test Date Status DRE BARNHART 04/03/2023 16:05:09 Final Observation Date Value Abnormality Reference (Units) Status Source 04/03/2023 16:05:09 Semi-liquid Final Clostridioides difficile toxin and BI-[id number] strain DNA panel - Stool by PAVEL with probe detection 04/03/2023 16:05:09 Negative. No C. difficile toxin B gene DNA detected by PCR (Amplified Probe). Negative Final Performing Location [facility] [place] [address] [facility] [address]
--- OUTSIDE RECORDS SUMMARY | 2023-08-17 23:11 | External Medical Summary ---
Author Name Unknown Address Unknown Organization [id number]:[place] [place] [address] [facility] [address] Laboratory Report Ordering Provider Test Date Status DRE BARNHART 03/03/2023 15:33:08 Final Observation Date Value Abnormality Reference (Units ) Status BUN 03/03/2023 15:33:08 21 Above high normal 6-20 (mg/dL) Final Creatinine 03/03/2023 15:33:08 0.9 0.5-1.0 (mg/dL) Final Glomerular filtration rate/1.73 sq M.predicted [Volume Rate/Area] in Serum, Plasma or Blood by Creatinine-based formula (CKD-EPI) 03/03/2023 15:33:08 70 >=60 (mL/min) Final eGFR is calculated based on the CKD-EPI 2020 equation SODIUM 03/03/2023 15:33:08 142 135-146 (m mol/L) Final Potassium 03/03/2023 15:33:08 4.3 3.5-5.1 (m mol/L) Final Cl 03/03/2023 15:33:08 105 98-107 (mm ol/L) Final CO2 03/03/2023 15:33:08 21 Below low normal 22- 32 (mmol/L) Final Anion gap 03/03/2023 15:33:08 16 Above high normal 7- 15 (mmol/L) Final Glucose 03/03/2023 15:33:08 105 70-120 (mg /dL) Final Albumin 03/03/2023 15:33:08 4.6 3.8-5.0 (g /dL) Final AST (Aspartate aminotransferase) 03/03/2023 15:33:08 23 10-35 (U/L) Fin al Alk Phos 03/03/2023 15:33:08 71 35-130 (U/ L) Final Bilirubin, Total 03/03/2023 15:33:08 0.4 <=1 .2 (mg/dL) Final Calcium 03/03/2023 15:33:08 8.0 Below low normal 8.4 -10.2 (mg/dL) Final Protein 03/03/2023 15:33:08 7.2 6.0-8.3 (g /dL) Final ALT (Alanine aminotransferase) 03/03/2023 15:33:08 22 10-35 (U/L) Amauri ruiz Performing Location [facility] [place] [address] [facility] [address]
--- OUTSIDE RECORDS SUMMARY | 2023-08-17 23:11 | External Medical Summary ---
Author Name Unknown Address Unknown Organization [id number]:LABORATORY [facility] [place] - [address] [facility] [address] Laboratory Report Ordering Provider Test Date Status DRE BARNHART 03/03/2023 15:33:08 Final Observation Date Value Abnormality Reference (Units ) Status HbA1C 03/03/2023 15:33:08 7.0 Above high normal 4. 0-5.6 (%) Final The use of HbA1c to monitor glycemic status is based on normal hemoglobin and HbA composition. This test should not be used in patients with abnormal hemoglobin that affects the half life of the red blood cell or the in vivo glycation rates. Glucose, estimated average 03/03/2023 15:33:08 154 Above high normal <126 (mg/dL) Amauri ruiz Performing Location LABORATORY [facility] [place] - [address] [facility] [address]
--- OUTSIDE RECORDS SUMMARY | 2023-08-17 23:11 | External Medical Summary ---
Author Name Unknown Address Unknown Organization [id number]:LABORATORY [facility] [place] - [address] [place] [address] Laboratory Report Ordering Provider Test Date Status MARIEL BARNHARTBAO 04/03/2023 16:05:45 Final Observation Date Value Abnormality Reference (Units) Status Bacteria identified in Specimen by Culture 04/03/2023 16:05:45 No Aeromonas species or Plesiomonas species isolated. Final Test: Gastrointestinal Patho gen Panel Culture
Specimen Source: Stool
Specimen Type: Stool
Specimen Date: 04/03/2023 4:05 PM
Result Date: 04/06/2023 10:55 AM
Result Status: Final result
Resulting Lab: [facility]ORY [facility] [place]
[address]
[place] [id number]

CULTURE

No Aeromonas species or Plesiomonas species isolated.

null Performing Location LAB[facility]ORY [facility] [place] - [address] [facility] [address]
--- OUTSIDE RECORDS SUMMARY | 2023-08-17 23:11 | External Medical Summary ---
Author Name Unknown Address Unknown Organization [id number]:LABORATORY [facility] [place] - [address] [facility] [address] Laboratory Report Ordering Provider Test Date Status DRE BARNHART 03/03/2023 15:33:08 Final Observation Date Value Abnormality Reference (Units ) Status TSH 03/03/2023 15:33:08 2.42 0.27-4.20 (uIU/mL) Final Performing Location LABORATORY [facility] [place] - [address] [facility] [address]
--- OUTSIDE RECORDS SUMMARY | 2023-08-17 23:11 | External Medical Summary ---
Author Name Unknown Address Unknown Organization K01:LABORATORY [facility] [place] - [address] [facility] [address] Laboratory Report Ordering Provider Test Date Status BRONWYNMARIELBAO 03/10/2023 14:42:25 Final Normal: <30 mg/g creatinine< br/>High: 30-300 mg/g creatinine
Very High: >300 mg/g creatinine
Nephrotic: >2200 mg/g creatinine Observation Date Value Abnormality Reference (Units ) Status Albumin, Urine 03/10/2023 14:42:25 <1.20 (mg/dL) Final Creatinine, Urine 03/10/2023 14:42:25 106 (mg/dL) Final Albumin/Creatinine [Mass Ratio] in Urine 03/10/2023 14:42:25 <11 <30 (mg/g Creat) Final Performing Location LAB[facility]ATORY [facility] [place] - [address] [facility] [address]
--- OUTSIDE RECORDS SUMMARY | 2023-08-17 23:11 | External Medical Summary | Summary of Care ---
Author Name Unknown Organization [facility] Address [address] [place] [address] Phone [phone] Care Team Providers Care Office Machines Wirer Name Role Phone Mika Kimberlyncandelario Pedraza DO Primary Care Provider [phone] Reason for Visit * Reason Comments Outpatient Testing Encounter Details Date Type Department Care Team Description 03/10/2023 Laboratory Laboratory, [facility] [address] [facility] [id number] [address], Specimen Drop Off [facility] [address] [facility] [address] Type 2 diabetes mellitus with hemoglobin A1c goal of less than 7.0% ([facility]) Allergies Active Allergy Reactions Severity Noted Date Comments Gabapentin Diarrhea 09/20/2022 Pollen 05/15/2011 Propranolol Diarrhea 09/20/2022 documented as of this encounter (statuses as of 03/10/2023) Medications Medication Sig Dispensed Refills Start Date [...] as of this encounter (statuses as of 03/10/2023) Active Problems Problem Noted Date Hypothyroidism 11/10/2022 [...] as of this encounter (statuses as of 03/10/2023) Resolved Problems Problem Noted Date Resolved Date Type 2 diabetes mellitus wit h diabetic peripheral angiopathy without gangrene 02/24/2022 04/21/2022 Type 2 diabetes mellitus wit h diabetic peripheral angiopathy without gangrene 02/24/2022 04/21/2022 Acquired hypothyroidism 10/16/2019 09/07/19 23 Body mass index (BMI) of 40.0 to 44.9 in adult 1 03/03/2022 Overview: Per Obesity protocol #1 documented as of this encounter (statuses as of 03/10/2023) Immunizations Name Administration Dates Next Due Covid-19 Ad26, Single Dose ([employer]/J&J) 021 Covid-19, Mrna, Lnp-s, Pf, B ivalent, [...] Annual Wellness Visit [address] [place] [address] 05/26/2023 Office Visit Family Medicine [facility] [address] [facility] [address] Pending Results Name Type Priority Associated Diagnoses Date /Time ALBUMIN / CREATININE RATIO, URINE Lab Routine Type 2 diabetes mellitus with hemoglobin A1c goal of less than 7.0% ([facility]) 03/10/2023 2:42 PM EDT Health Maintenance Due Date Last Done Comments Mammogram 1995 Cologuard 2000 Colonoscopy 2000 Colorectal Cancer Screening 2000 Fecal Occult Blood Test 2000 Sigmoidoscopy 2000 *SPIROMETRY ONCE FOR ASTHMA-ADULT 10/18/2019 Albumin/Creatinine Ratio 09/28/2022 022, 06/01/2020, 07/16/2019, Additional history exists DIABETES-EYE EXAM 03/10/2023 03/10/2022, [...] 12/01/2020, Additional history exists TSH 03/03/2024 03/03/2023, 06/2 12/2021, 09/28/2021, Additional history exists DXA Scan 03/15/2024 03/15/2022 Lipid Panel 03/03/2028 03/03/2023, 03/2022, 06/01/2020, Additional history exists DTaP,Tdap,and Td Vaccines (2 - Td or Tdap) 03/14/2028 03/14/2018 Pap Smear Discontinued 03/14/2018 (Declined) Zoster Vaccines Completed 08/28/2020, 02/2020, 01/07/2015 Pneumococcal Vaccine: 65+ Years Completed 02/24/2022, 03/14/2018 COVID-19 Vaccine Completed 08/30/2022, 12/26/2020 VITAMIN D LEVEL ONCE IN A LIFETIME-USE SMARTSET# [id number] Completed 03/03/2023 GARDASIL-HPV IMMUNIZATION SERIES Aged Out No longer eligible based on patient's age to complete this topic Hepatitis B Aged Out No longer eligi ble based on patient's age to complete this topic MENINGOCOCCAL (MENACTRA/MENVEO) Aged Out No longer eligible based on patient's age to complete this topic documented as of this encounter Medical Devices Implanted Type Area Square Cutter Device Identifier Shelf Expiration Date Model / Serial / Lot Lens Intraoc 21.5 - [id number] - [id number] Implanted:Qty: 1 on 09/06/2022 by Slava Colón MD at OR [facility] Right: Eye [employer]OM[employer] 03/20/2027 [id number] / [id number] / [id number] Lens Intraoc 23.0 - [id number] - [id number] Implanted:Qty: 1 on 09/27/2022 by Slava Colón MD at OR [facility] Left: Eye BAUSCH & LOMB 06/20/2027 [id number] / [id number] / documented as of this encounter Visit Diagnoses Diagnosis Type 2 diabetes mellitus with hemoglobin A1c goal of less than 7.0% (HCC) documented in this encounter Advance Directives Documents on File Type Date Recorded Patient Manager Small Business Expl anation Advance Directives and Living Will [...] the patient have Health Care Power of Health Care Facility Administrator? No Code Status History Code Status Date Activated Date Inactivated Comments No Code 09/06/2022 7:37 AM 09/06/2022 1:55 PM This order reflects the patients wishes and were consensually agreed upon. Question Answer Comments Discussion of Advance Directives occurred with: Patient Does the patient have a Living Will? No Does the patient have Health Care Power of Health Care Facility Administrator? No Care Teams Office Machines Wirer Relationship Specialty Start Date End Date Kimberlyn Brennan, DO [address] [facility] [place] [address] PCP - General Family Medicine 02/24/22 documented as of this encounter
--- OUTSIDE RECORDS SUMMARY | 2023-08-17 23:11 | External Medical Summary ---
Author Name Unknown Address Unknown Organization K01:[facility] [place] [address] [facility] [address] Laboratory Report Ordering Provider Test Date Status DRE BARNHART 03/03/2023 15:33:08 Final Observation Date Value Abnormality Reference (Units ) Status WBC, Total 03/03/2023 15:33:08 8.24 4.00-10.80 (K/uL) Final RBC 03/03/2023 15:33:08 4.09 3.85-5.15 (M/uL) Final Hemoglobin 03/03/2023 15:33:08 13.1 12.0-15.3 (g/dL) Final HCT 03/03/2023 15:33:08 41.3 36.0-45.2 (%) Final MCV 03/03/2023 15:33:08 101.0 81.5-97.5 (fL) Final MCH 03/03/2023 15:33:08 32.0 27.0-34.0 (pg) Final MCHC 03/03/2023 15:33:08 31.7 32.0-36.0 (g/dL) Final RDW 03/03/2023 15:33:08 13.1 11.5-15.5 (%) Final Platelets 03/03/2023 15:33:08 274 140-400 (K/uL) Final MPV 03/03/2023 15:33:08 11.3 6.6-11.1 (fL) Final Nucleated erythrocytes/100 leukocytes [Ratio] in Blood by Automated count 03/03/2023 15:33:08 0 <=0 (/100 WBCs) Final Performing Location [facility] [place] [address] [facility] [address]
--- OUTSIDE RECORDS SUMMARY | 2023-08-17 23:11 | External Medical Summary | Summary of Care ---
Author Name Unknown Organization [facility] Address [address] [place] [address] Phone [phone] Care Team Providers Care Archival Studies Professor Name Role Phone JezKimberlyn mendez Keila DA SILVA Primary Care Provider + [phone] Reason for Visit * Reason Onset Date Comments Information 03/24/2023 Encounter Details Date Type Department Care Team Description 03/24/2023 Radio Engineering Teacher Telephone Family Practice [address] [facility], [address] [address] Radha Villalta, RN Information (/) Allergies Active Allergy Reactions Severity Noted Date [...] hemoglobin A1c goal of less than 7.0% ([facility]) Take 1 Tablet by mouth 2 times [...] Dates Next Due Covid-19 Ad26, Single Dose ([employer]/J&J) 021 Covid-19, Mrna, Lnp-s, Pf, B ivalent, 30 Mcg, IM, 12 yrs and above ([employer]) 08/30/2022 Pneumococcal Conjugate Vaccine, 20-valent (Prevn ar20) [...] encounter Miscellaneous Notes * Telephone Encounter - Leora Bustillos LPN - 03/24/2023 2:42 PM EDT Patient is aware and will comply. Will go to [employer] for collection material and will schedule next week if she needs an appointment. Thank you * Telephone Encounter - Kimberlyn Brennan DO - 03/24/2023 2:09 PM EDT Would advise stool studies. Drink more water and less sodas. OV next week if persistent. * Telephone Encounter - Leora Bustillos LPN - 03/24/2023 11:13 AM EDT Called Maryjane, no blood in stool, states she is having between 2 -7 bowel movements per day. No fever, slight belly discomfort--lower abd area across abd. Denies nausea and vomiting and no fever. States last time she took miralax--"it has been awhile". Eats "mom's meals, ramen noodle soup. Drinking gingerale. Has not been on ATB lately. * Telephone Encounter - Kimberlyn Brennan DO - 03/24/2023 10:52 AM EDT Can we try to call pt to get some information? Any pain? Any blood in stools? How often? Is she taking stool softeners or miralax? Fevers? Etc? * Telephone Encounter - Leora Bustillos LPN - 03/24/2023 10:44 AM EDT Son states no nausea or vomiting, no fever. Not sure if recent atb. No blood in stool that is noted. Son states he does not thing patient is taking miralax. States as soon as she eats something goes right thru her, like her mother. Son states he can not contribute anything to her diet that would cause this. Gets "mom's meals" eats those, doesn't drink much water. Drinks orange soda and gingerale for the most part. States diarrhea since March 10. Unsure of number of stools per day. Thank you * Telephone Encounter - Radha Villalta RN - 03/24/2023 10:29 AM EDT SITUATION: CM received call from patient' son Nazario, with concerns as pt has been having diarrhea BACKGROUND: Son states pt has been having loose stools since at least 03/10 ASSESSMENT: Son states that when he went to see patient on 03/10 she had diarrhea and had made a mess in the bathroom. This has been happening since. He states that at this time patient is not wantingto leave the house because she is afraid of having accidents. He is not sure how many lose stools aday she is having as he does not live with her. She denies fevers or chills that he is aware of. He does not believe she has been taking her miralax daily. No changes to diet that he is aware of. RECOMMENDATION: Pt's son is driving up to see patient and will be able to bring her in to be seen if you would like. Please advise. Radha Villalta RN [facility] Nurse Radio Engineering Teacher documented in this encounter Plan of Treatment Upcoming Encounters Date Type Specialty Care Team Description 04/20/2023 Nurse Only Ancillary College, Nurse Annual Wellness Visit [address] [facility] [address] 05/26/2023 Office Visit Family Medicine Kimberlyn Brennan, DO [address] [place] [address] Scheduled Orders Name Type Priority Associated Diagnoses Orde r Schedule GASTROINTESTINAL PATHOGEN PANEL, STOOL Lab Routine Diarrhea, unspecified type Expected: 03/24/2023 (Approximate), Expires: 03/23/2024 CLOSTRIDIUM DIFFICILE, PCR Lab Routine Diarrhea, unspecified type Expected: 03/24/2023 (Approximate), Expires: 03/23/2024 Health Maintenance Due Date Last Done Comments [...] 12/01/2020, Additional history exists TSH 03/03/2024 03/03/2023, 0612/2021, 09/28/2021, Additional history exists Albumin/Creatinine Ratio 03/10/2024 [...] D LEVEL ONCE IN A LIFETIME-USE SMARTSET# [id number] Completed 03/03/2023 GARDASIL-HPV IMMUNIZATION SERIES Aged Out No longer eligible based on patient's age to complete this topic Hepatitis B Aged Out No longer eligi ble based on patient's age to complete this topic MENINGOCOCCAL (MENACTRA/MENVEO) Aged Out No longer eligible based on patient's age to complete this topic documented as of this encounter Medical Devices Implanted Type Area Department Supervisor Device Identifier Shelf Expiration Date Model / Serial / Lot Lens Intraoc 21.5 - [id number] - [id number] Implanted:Qty: 1 on 09/06/2022 by Slava Colón MD at OR [facility] Right: Eye [employer]CH [employer] LOMB 03/20/2027 [id number] / [id number] / [id number] Lens Intraoc 23.0 - [id number] - [id number] Implanted:Qty: 1 on 09/27/2022 by Slava Colón MD at OR [facility] Left: Eye BAUSCH & LOMB 06/20/2027 [id number] / [id number] / documented as of this encounter Visit Diagnoses Diagnosis Medical home patient encounter- Primary Other specified examination Diarrhea, unspecified type documented in this encounter Advance Directives Documents on File Type Date Recorded Patient Embalmer/Funeral Director Expl anation Advance Directives and Living Will [...] the patient have Health Care Power of Energy Trader? No Code Status History Code Status Date Activated Date Inactivated Comments No Code 09/06/2022 7:37 AM 09/06/2022 1:55 PM This order reflects the patients wishes and were consensually agreed upon. Question Answer Comments Discussion of Advance Directives occurred with: Patient Does the patient have a Living Will? No Does the patient have Health Care Power of Energy Trader? No Care Teams Archival Studies Professor Relationship Specialty Start Date End Date Kimberlyn Brennan, [address] [place] [address] PCP - General Family Medicine 02/24/22 documented as of this encounter
--- OUTSIDE RECORDS SUMMARY | 2023-08-17 23:11 | External Medical Summary ---
Author Name Unknown Address Unknown Organization K01:LABORATORY [facility] [place] - [address] [facility] [address] Laboratory Report Ordering Provider Test Date Status DRE BARNHART 03/03/2023 15:33:08 Final Observation Date Value Abnormality Reference (Units ) Status Triglyceride 03/03/2023 15:33:08 177 Above high normal <=174 (mg/dL) Final Triglyceride Reference Range s (mg/dL):
<150 Acceptable
150-174 Borderline high
175-499 High
>=500 Very high Cholesterol 03/03/2023 15:33:08 182 <200 (mg /dL) Final Total Cholesterol Reference Ranges (mg/dL):
<200 Desirable
200-239 Borderline high
>=240 High HDL 03/03/2023 15:33:08 60 >49 (mg/dL ) Final HDL Cholesterol Reference Ra nges (mg/dL):
>=60 High (Desirable)
<50 Low (Undesirable) For Females
<40 Low (Undesirable) For Males NON-HDL CHOLESTEROL 03/03/2023 15:33:08 122 <=159 (mg/dL) Final Non-HDL Cholesterol Referenc e Range (mg/dL):
<100 Target level for high risk ASCVD patient
<130 Optimal for general population
130-159 Near optimal for general population
160-189 Borderline High
190-219 High
>=220 Very High LDL, (calculated) 03/03/2023 15:33:08 87 <= 129 (mg/dL) Final LDL Cholesterol Reference Ra nges (mg/dL):
<70 Target level for high risk ASCVD patient
<100 Optimal for general population
100-129 Near optimal for general population
130-159 Borderline high
160-189 High
>=190 Very high Performing Location LABORATORY [facility] [place] - [address] [facility] [address]
--- OUTSIDE RECORDS SUMMARY | 2023-08-17 23:11 | External Medical Summary | Summary of Care ---
Author Name Unknown Organization [facility] Address [address] [place] [address] Phone [phone] Care Team Providers Care Shredding Machine Knife Changer Name Role Phone Kimberlyn Brennan DO Primary Care Provider [phone] Reason for Visit * Reason Onset Date Comments Test Results 04/05/2023 Encounter Details Date Type Department Care Team Description 04/05/2023 Telephone Family Practice [address] [facility] [place] [address] [place] [id number] Kimberlyn Brennan DO [address] [place] [address] Test Results Allergies Active Allergy Reactions Severity Noted Date Comments Gabapentin Diarrhea 09/20/2022 Pollen 05/15/2011 Propranolol Diarrhea 09/20/2022 documented as of this encounter (statuses as of 04/05/2023) Medications Medication Sig Dispensed Refills Start Date [...] as of this encounter (statuses as of 04/05/2023) Active Problems Problem Noted Date Hypothyroidism 11/10/2022 [...] as of this encounter (statuses as of 04/05/2023) Resolved Problems Problem Noted Date Resolved Date Type 2 diabetes mellitus wit h diabetic peripheral angiopathy without gangrene 02/24/2022 04/21/2022 Type 2 diabetes mellitus wit h diabetic peripheral angiopathy without gangrene 02/24/2022 04/21/2022 Acquired hypothyroidism 10/16/2019 09/07/19 23 Body mass index (BMI) of 40.0 to 44.9 in adult 1 03/03/2022 Overview: Per Obesity protocol #1 documented as of this encounter (statuses as of 04/05/2023) Immunizations Name Administration Dates Next Due Covid-19 Ad26, Single Dose ([place]/J&J) 021 Covid-19, Mrna, Lnp-s, Pf, B ivalent, 30 Mcg, IM, 12 yrs and above ([employer] [facility]) 08/30/2022 Pneumococcal Conjugate Vaccine, 20-valent (Prevn ar20) [...] at Date Recorded Female 04/15/2019 1:08 PM EDT Job Start Date Occupation Industry Not on file Not on file Not on file documented as of this encounter Miscellaneous Notes * Telephone Encounter - Leora Bustillos LPN - 04/05/2023 3:36 PM EDT Patient states she is feeling better. Advised to call if needs an appointment. Patient is aware and will comply. Thank you * Telephone Encounter - Kimberlyn Brennan DO - 04/05/2023 3:25 PM EDT Please let pt know; 1. Her stool studies are negative. If she has persistent diarrhea, to schedule appt. documented in this encounter Plan of Treatment Upcoming Encounters Date Type Specialty Care Team Description 05/26/2023 Office Visit Family Medicine Kimberlyn Brennan DO [address] [place] [address] 08/08/2023 Nurse Only Ancillary College, Nurse Annual Wellness Visit [address] [place] [address] Health Maintenance Due Date Last Done Comments [...] Discontinued 03/14/2018 (Declined) Zoster Vaccines Completed 08/28/2020, 110 02/2020, 01/07/2015 Pneumococcal Vaccine: 65+ Years Completed 02/24/2022, 03/14/2018 COVID-19 Vaccine Completed 08/30/2022, 12/26/2020 VITAMIN D LEVEL ONCE IN A LIFETIME-USE SMARTSET# [id number] Completed 03/03/2023 GARDASIL-HPV IMMUNIZATION SERIES Aged Out No longer eligible based on patient's age to complete this topic Hepatitis B Aged Out No longer eligi ble based on patient's age to complete this topic MENINGOCOCCAL (MENACTRA/MENVEO) Aged Out No longer eligible based on patient's age to complete this topic documented as of this encounter Medical Devices Implanted Type Area Public Health Physician Device Identifier Shelf Expiration Date Model / Serial / Lot Lens Intraoc 21.5 - [id number] - [id number] Implanted:Qty: 1 on 09/06/2022 by Slava Colón MD at OR [facility] Right: Eye BAUSCH [employer] LOMB 03/20/2027 [id number] / [id number] / [id number] Lens Intraoc 23.0 - [id number] - [id number] Implanted:Qty: 1 on 09/27/2022 by Slava Colón MD at OR [facility] Left: Eye BAUSCH & LOMB 06/20/2027 [id number] / [id number] / documented as of this encounter Advance Directives Documents on File Type Date Recorded Patient Mini Shifter Expl anation Advance Directives and Living Will [...] the patient have Health Care Power of Biomedical Engineering Internship? No Code Status History Code Status Date Activated Date Inactivated Comments No Code 09/06/2022 7:37 AM 09/06/2022 1:55 PM This order reflects the patients wishes and were consensually agreed upon. Question Answer Comments Discussion of Advance Directives occurred with: Patient Does the patient have a Living Will? No Does the patient have Health Care Power of Biomedical Engineering Internship? No Care Teams Shredding Machine Knife Changer Relationship Specialty Start Date End Date Kimberlyn Brennan, DO [address] [place] [address] PCP - General Family Medicine 02/24/22 documented as of this encounter
--- OUTSIDE RECORDS SUMMARY | 2023-08-17 23:11 | External Medical Summary ---
Author Name Unknown Address Unknown Organization [id number]:LAB[facility]ATORY [facility] [place] - [facility] [address] [facility] [id number] Laboratory Report Ordering Provider Test Date Status DRE BARNHART 04/03/2023 16:05:45 Final Observation Date Value Abnormality Reference (Units ) Status Campylobacter sp DNA.diarrheagenic [Presence] in Stool by PAVEL with probe detection 04/03/2023 16:05:45 Negative Negative Final Salmonella sp rpoD gene [Presence] in Stool by PAVEL with probe detection 04/03/2023 16:05:45 Negative Negative Final Shigella species+EIEC invasion plasmid antigen H ipaH gene [Presence] in Stool by PAVEL with probe detection 04/03/2023 16:05:45 Negative Negative Final Vibrio sp DNA [Identifier] in Specimen by PAVEL with probe detection 04/03/2023 16:05:45 Negative Negative Final Yersinia enterocolitica recN gene [Presence] in Stool by PAVEL with probe detection 04/03/2023 16:05:45 Negative Negative Final Escherichia coli Stx1 toxin stx1 gene [Presence] in Stool by PAVEL with probe detection 04/03/2023 16:05:45 Negative Negative Final Escherichia coli Stx2 toxin stx2 gene [Presence] in Stool by PAVEL with probe detection 04/03/2023 16:05:45 Negative Negative Final Norovirus genogroups I and II RNA panel - Stool by PAVEL with probe detection 04/03/2023 16:05:45 Negative Negative Final Rotavirus A RNA [Presence] in Stool by PAVEL with probe detection 04/03/2023 16:05:45 Negative Negative Final Performing Location LABORATORY [place] [address] [facility] [address]
--- OUTSIDE RECORDS SUMMARY | 2023-08-17 23:11 | External Medical Summary | Summary of Care ---
Author Name Unknown Organization [facility] Address [address] [place] [address] Phone [phone] Care Team Providers Care Production Line Worker Name Role Phone Kimberlyn Brennan DO Primary Care Provider Encounter Details Date Type Department Care Team Description 03/06/2023 Orders Only Family Practice [address] [facility] [address] [place] [address] Kimberlyn Brennan DO [address] [place] [address] Allergies Active Allergy Reactions Severity Noted Date Comments Gabapentin Diarrhea 09/20/2022 Pollen 05/15/2011 Propranolol Diarrhea 09/20/2022 documented as of this encounter (statuses as of 03/06/2023) Medications Medication Sig Dispensed Refills Start Date [...] or other meds) 90 Tablet 1 01/20/2023 Active metFORMIN HCl 500 MG Oral [...] as of this encounter (statuses as of 03/06/2023) Active Problems Problem Noted Date Hypothyroidism 11/10/2022 [...] as of this encounter (statuses as of 03/06/2023) Resolved Problems Problem Noted Date Resolved Date Type 2 diabetes mellitus wit h diabetic peripheral angiopathy without gangrene 02/24/2022 04/21/2022 Type 2 diabetes mellitus wit h diabetic peripheral angiopathy without gangrene 02/24/2022 04/21/2022 Acquired hypothyroidism 10/16/2019 09/07/19 23 Body mass index (BMI) of 40.0 to 44.9 in adult 1 03/03/2022 Overview: Per Obesity protocol #1 documented as of this encounter (statuses as of 03/06/2023) Immunizations Name Administration Dates Next Due Covid-19 Ad26, Single Dose ([place]/J&J) 021 Covid-19, Mrna, Lnp-s, Pf, B ivalent, 30 Mcg, IM, 12 yrs and above (IDINCU) 08/30/2022 Pneumococcal Conjugate Vaccine, 20-valent (Prevn ar20) [...] Annual Wellness Visit [address] [place] [address] 05/26/2023 Office Visit Family Medicine Kimberlyn Brennan, [address] [facility] [place] [address] Health Maintenance Due Date Last Done Comments Mammogram 1995 Cologuard 2000 Colonoscopy 2000 Colorectal Cancer Screening 2000 Fecal Occult Blood Test 2000 Sigmoidoscopy 2000 *SPIROMETRY ONCE FOR ASTHMA-ADULT 10/18/2019 Albumin/Creatinine Ratio 09/28/2022 022, 06/01/2020, 07/16/2019, Additional history exists Influenza Vaccine (FLU shot) (#1) 2023 04/21/2022, 08/26/2021, 05/29/2020, Additional history exists HbA1c 09/03/2023 03/03/2023, 02/0 03/2022, 12/01/2020, Additional history exists DIABETES-FOOT EXAM 12/03/2023 12/02/2022, 0 02/24/2022, 12/01/2020, Additional history exists Depression Screening, Annual for Pts 12 and Over 03/03/2024 03/03/2023 GFR 03/03/2024 03/03/2023, 02/0 03/2022, 12/01/2020, Additional history exists TSH 03/03/2024 03/03/2023, 06/2 12/2021, 09/28/2021, Additional history exists DIABETES-EYE EXAM 03/06/2024 03/10/2022, , 11/08/2019, Additional history exists DXA Scan 03/15/2024 03/15/2022 Lipid Panel 03/03/2028 03/03/2023, 02/0 03/2022, 06/01/2020, Additional history exists DTaP,Tdap,and Td Vaccines (2 - Td or Tdap) 03/14/2028 03/14/2018 Pap Smear Discontinued 03/14/2018 (Declined) Zoster Vaccines Completed 08/28/2020, 11/0 02/2020, 01/07/2015 Pneumococcal Vaccine: 65+ Years Completed 02/24/2022, 03/14/2018 COVID-19 Vaccine Completed 08/30/2022, 12/26/2020 VITAMIN D LEVEL ONCE IN A LIFETIME-USE SMARTSET# [id number] Completed 03/03/2023 GARDASIL-HPV IMMUNIZATION SERIES Aged Out No longer eligible based on patient's age to complete this topic Hepatitis B Aged Out No longer eligi ble based on patient's age to complete this topic MENINGOCOCCAL (MENACTRA/MENVEO) Aged Out No longer eligible based on patient's age to complete this topic documented as of this encounter Medical Devices Implanted Type Area Student Success Coach Device Identifier Shelf Expiration Date Model / Serial / Lot Lens Intraoc 21.5 - [id number] - [id number] Implanted:Qty: 1 on 09/06/2022 by Slava Colón MD at OR [facility] Right: Eye [employer] 03/20/2027 [id number] / [id number] / [id number] Lens Intraoc 23.0 - [id number] - [id number] Implanted:Qty: 1 on 09/27/2022 by Slava Colón MD at OR [facility] Left: Eye [employer] 06/20/2027 [id number] / [id number] / documented as of this encounter Advance Directives Documents on File Type Date Recorded 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 No Code Status History Code Status Date Activated Date Inactivated Comments No Code 09/06/2022 7:37 AM 09/06/2022 1:55 PM This order reflects the patients wishes and were consensually agreed upon. Question Answer Comments Discussion of Advance Directives occurred with: Patient Does the patient have a Living Will? No Does the patient have Health Care Power of Manager Lighting? No Care Teams Production Line Worker Relationship Specialty Start Date End Date Kimberlyn Brennan, DO [address] [place] [address] PCP - General Family Medicine 02/24/22 documented as of this encounter
--- OUTSIDE RECORDS SUMMARY | 2023-08-17 23:11 | External Medical Summary | Summary of Care ---
Author Name Unknown Organization [facility] Address [address] [place] [address] Phone [phone] Care Team Providers Care Enterprise Cloud Architect Name Role Phone Kimberlyn Brennan DO Primary Care Provider Reason for Visit * Reason Comments Follow Up Encounter Details Date Type Department Care Team Description 03/03/2023 Office Visit Family Practice 65 [facility] [place] [address] [place] [id number] Kimberlyn Brennan DO [address] [place] [address] Pelvic pain in female*; Acquired hypothyroidism; Type 2 diabetes mellitus with hemoglobin A1c goal of less than 7.0% ([facility]); Vitamin B 12 deficiency; Age-related osteoporosis without current pathological fracture; Hyperlipidemia, unspecified hyperlipidemia type; Morbid obesity due to excess calories ([facility]); Risk and functional assessment Allergies Active Allergy Reactions Severity Noted Date [...] Capsule by mouth at bedtime. 90 Capsule 01/20/2023 Active Memantine HCl 10 MG Oral Tablet (Namenda)Indication s:Early onset Alzheimer's dementia without behavioral disturbance (HCC) Take 1 Tablet by mouth 2 times a day with morning and evening meals. 180 Tablet 1 01/20/2023 Active Primidone 50 MG Oral Tablet (Mysoline) 1 tab (50 mg) in the morning and 2 tablets (100 mg) in the evening. 270 Tablet 3 01/25/2023 Active Memantine HCl 10 MG Oral Tablet (Namenda) TAKE ONE TABLET BY MOUTH TWICE A DAY 180 Tablet 3 09/16/2022 3 Discontinu ed(Medicat ion List Clean Up) Galantamine Hydrobromide 12 MG Oral Tablet (Razadyne) TAKE ONE TABLET BY MOUTH TWICE A DAY 180 Tablet 3 09/16/2022 3 Discontinu ed(Medicat ion List Clean Up) Primidone 50 MG Oral Tablet (Mysoline) TAKE ONE TABLET BY MOUTH THREE TIMES A DAY 270 Tablet 3 09/16/2022 3 Discontinu ed(Medicat ion List Clean Up) documented as of this encounter (statuses as [...] Past Smokeless Tobacco: Never Tobacco Cessation:Counseling Given: Not Answered Alcohol Use Standard Drinks/Week Comments No 0 [...] Sign Reading Time Taken Comments Blood Pressure 132/76 03/03/2023 2:34 PM EDT Pulse 89 03/03/2023 2:34 PM EDT Temperature 36.2 C (97.1 F) 03/03/2023 2:34 PM ED T Respiratory Rate - - Oxygen Saturation 98% 03/03/2023 2:34 PM EDT Inhaled Oxygen Concentration - - Weight 112.6 kg (248 lb 4.8 oz) 03/03/2023 2:34 PM EDT Height - - Body Mass Index 41.32 09/27/2022 7:50 AM EST documented in this encounter Patient Instructions * Patient Instructions* Leora Orosco RN - 03/03/2023 2:24 PM EDT Patient Instructions - Fall [...] 10 times. Repeat this throughout the day. [employer] Patient Education Copyright 2009 - 2010 [...] side, hold the cane on that side. 17. Get your balance. 18. Move the cane and your weaker leg forward. 19. Support your weight on both the cane and your weaker side. 20. Step with your stronger leg. 21. Start again from step 1. If youre using a folding walker, be sure you know how to lock it open. Check that its locked open before each use. Using a Walker 7. Roll the walker (or lift it, if youre using one without wheels) forward about 12 inches. 8. Step forward with your weaker leg first. 9. Use the walker to help keep your balance. 10. Bring your other foot forward to the center of the walker. 11. Start again from step 1. Helpful Tips [...] support stockings (TEDs)if you have edema Leora Orosco RN 03/03/2023 Kegel Exercises Kegel exercises dont require special [...] please feel free to contact our office. BMI (Body Mass Index) is the number obtained by dividing a person's weight in kilograms by his or her height in meters squared. BMI is used in determining obesity. BMI is not used to determine a person's actual percentage of body fat, but it is a good tool to circuit judge weight in terms of what is healthy and unhealthy. It is used to identify adults at increased risk for developing weight related medical problems. Estimated body mass index is 41.32 kg/m as calculated from the following: Height as of 09/27/22: 1.651 m (5' 5"). Weight as of this encounter: 112.6 kg (248 lb 4.8 oz). Severe Obesity - BMI 40 kg/m2 and above - Severely obese individuals are at a very high risk for developing: * Heart disease * Stroke * Diabetes * High Blood Pressure * High Cholesterol * GERD (acid reflux) * Sleep Apnea * Osteoarthritis * Fatty Liver Disease * Certain Types of Cancers * Gout * Gall Bladder Disease - Weight loss has been shown to decrease weight related medical problems. - A BMI of 40 kg/m2 or higher decreases lifespan by 10 yrs, compared to those with a normal BMI. - A 12-week weight management text message program is also available. Go to [employer] and seethe message under '[employer]' for more information and enrollment. Patient is Instructed to: Diet: * Limit total fat intake to no more than 40 grams per day (low fat diet). * Increase fruits and vegetables to 5 servings per day, combined. * Limited starches (breads, pasta, rice, potatoes, corn, cereals) to 4 servings per day. Avoid Calorie Containing Drinks: * No fruit juices, regular sodas or sweetened drinks. * Water is preferred - 64 ounces per day unless advised of a fluid restriction. * Diet sodas and drinks permitted. Keep Honest, Accurate Food logs: * www.DosYogures.Sentiment * www.[employer].Sentiment * If you bite it - write it! Weigh Yourself Weekly: * Morning is best. * Try to do this outside your home. * Have a friend/spouse remind you to weigh yourself, accountability to others helps. Perform 30 minutes of physical activity daily: * Can do all at once or 5 minutes 6 times per day * 8, 000-10,000 steps per day using a pedometer * Make it fun! documented in this encounter Progress Notes * Leora Orosco RN - 03/03/2023 2:24 PM EDT Urinary Incontinence Plan of Care Documentation: (This [...] support stockings (TEDs)if you have edema Leora Orosco RN 03/03/2023 * Kimbelryn Brennan, DO - 03/03/2023 2:21 PM EDT SUBJECTIVE: Chief Complaint Patient presents with Follow Up HPI: Maryjane Hudson is a 67 year old female who presents today for regular return. Pt states that she has good and bad days. She notes she has days where she does not want to do anything. 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 Her son comes up every other week. He will help with cleaning and doing anything that she wants to do. Her daughter is there on the off weeks. Pt states that she had an episode last week where she couldn't control her bowels. She had a bit ofpain in her stomach. No fevers, sweats or chills. It lasted about 5 days. Her bowels have improved. Pt states she has some pelvic pain. She will take tylenol with resolution. She may get every other day. No bleeding no urinary symptoms. PHM: Patient Active Problem List Diagnosis Code Early onset Alzheimer's dementia without behavioral disturbance ([facility]) G30.0, F02.80 Type 2 diabetes mellitus with hemoglobin A1c goal of less than 7.0% ([facility]) E11.9 DWIGHT (generalized anxiety disorder) F41.1 Mild persistent asthma without complication J45.30 Other obsessive-compulsive disorder F42.8 Hyperlipidemia, unspecified E78.5 Type 2 diabetes mellitus with diabetic peripheral angiopathy without gangrene ([facility]) E11.51 Morbid obesity with body mass index (BMI) of 40.0 to 44.9 in adult ([facility]) E66.01, Z68.41 Age-related osteoporosis without current pathological fracture M81.0 Essential (primary) hypertension I10 Diabetic neuropathy ([facility]) E11.40 Diabetes mellitus with cataract ([facility]) E11.36 Hypothyroidism E03.9 Current Outpatient Medications Medication [...] (Flovent HFA) USE 1 INHALATION BY MOUTH 2 TIMES A DAY 36 g 1 Levothyroxine Sodium 112 MCG Oral Tablet (Levoxyl) Take 1 Tablet by mouth daily first thing in the morning. (at least 30 min prior to breakfast or other meds) 90 Tablet 1 metFORMIN HCl 500 MG Oral Tablet (Glucophage) Take 1 Tablet by mouth 2 times a day with morningand evening meals. 180 Tablet 1 Metoprolol Succinate ER 25 MG Oral Tablet Extended Release 24 Hour (toPROL XL) Take 1.5 Tabletsby mouth in the morning. 135 Tablet 1 Montelukast Sodium 10 MG Oral Tablet (Singulair) Take 1 Tablet by mouth in the morning. 90 Tablet 1 Potassium Chloride Pat ER 10 MEQ Oral Tablet Extended Release Take 1 Tablet by mouth in the morning and 1 Tablet at noon and 1 Tablet before bedtime. 270 Tablet 1 Pregabalin 25 MG Oral Capsule (Lyrica) Take 1 Capsule by mouth in the morning and 1 Capsule before bedtime. 180 Capsule 1 Solifenacin Succinate 10 MG Oral Tablet (VESIcare) Take 1 Tablet by mouth in the morning. 90 Tablet 1 Venlafaxine HCl ER 150 MG Oral Capsule Extended Release 24 Hour (Effexor XR) TAKE ONE CAPSULE BY MOUTH DAILY. DO NOT CUT, CRUSH OR CHEW. 90 Capsule 1 Venlafaxine HCl ER 75 MG Oral Capsule Extended Release 24 Hour (Effexor XR) TAKE ONE CAPSULE BYMOUTH DAILY. DO NOT CUT, CRUSH, OR CHEW. 90 Capsule 1 Galantamine Hydrobromide 12 MG Oral Tablet (Razadyne) Take 1 Tablet by mouth in the morning and1 Tablet before bedtime. 180 Tablet 1 Melatonin 5 MG Oral Capsule Take 1 Capsule by mouth at bedtime. 90 Capsule 1 Primidone 50 MG Oral Tablet (Mysoline) 1 tab (50 mg) in the morning and 2 tablets (100 mg) in the evening. 270 Tablet 3 Polyethylene Glycol 3350 17 GM/SCOOP Oral Powder (MiraLax) Take 17 g by mouth in the morning. Dissolve one heaping tablespoon in 8 ounces of water or juice.. 507 g 1 Memantine HCl 10 MG Oral Tablet (Namenda) Take 1 Tablet by mouth 2 times a day with morning andevening meals. 180 Tablet 1 No current facility-administered medications for this visit. Past Medical History: Diagnosis Date Alzheimer's dementia (HCC) Asthma Hypothyroidism Kidney stones Tremor Type 2 diabetes mellitus (HCC) Urinary incontinence Past Surgical History: Procedure Laterality Date REMOVE CATARACT, INSERT LENS PROSTH Right 09/06/2022 right EXTRACAPSULAR CATARACT REMOVAL WITH INTRAOCULAR LENS performed by Slava Colón MD at [facility] REMOVE CATARACT, INSERT LENS PROSTH Left 09/27/2022 left EXTRACAPSULAR CATARACT REMOVAL WITH INTRAOCULAR LENS performed by Slava Colón MD at OR [facility] REMOVE GALLBLADDER Review of patient's allergies indicates: [...] chest pain, palpitations and leg swelling. Gastrointestinal: Positive for diarrhea. Negative for abdominal pain, constipation, nausea and vomiting. Genitourinary: Positive for pelvic pain. Musculoskeletal: Negative for arthralgias, gait problem and joint swelling. Skin: Negative for color change, pallor and rash. OBJECTIVE: BP 132/76 (BP Site: Right Arm, BP Position: Sitting, BP Cuff Size: Large) | Pulse 89 | Temp 36.2 C (97.1 F) | Wt 112.6 kg (248 lb 4.8 oz) | SpO2 98% | BMI 41.32 kg/m | BSA 2.27 m PHYSICAL EXAM: Physical Exam Constitutional: General: [...] tenderness. There is no guarding. Musculoskeletal: General: Tenderness (lower abdominal tenderness to palpation) present. No deformity. Normal range of motion. Skin: General: Skin is warm and dry. Coloration: Skin is not pale. Findings: No erythema or rash. Neurological: Mental Status: She is alert and oriented to person, place, and time. ASSESSMENT/PLAN: (R10.2) Pelvic pain in female (primary encounter diagnosis) Plan: US PELVIS TRANS-VAGINAL NON-OB, CBC WITH WBC DIFFERENTIAL Pt will complete US. Unclear etiology. Previous CT not able to fully visualize pelvic organs per report. Will await results. (E03.9) Acquired hypothyroidism Plan: TSH WITH FREE T4 IF INDICATED Pt will complete TSH. Remain on current dose of levothyroxine. (E11.9) Type 2 diabetes mellitus with hemoglobin A1c goal of less than 7.0% (HCC) Plan: HEMOGLOBIN A1C, VITAMIN B12, ALBUMIN / CREATININE RATIO, URINE Pt will complete lab studies. Check urine. Remain on current regimen. (E53.8) Vitamin B 12 deficiency Plan: VITAMIN B12 Pt will remain on current B12 dose. (M81.0) Age-related osteoporosis without current pathological fracture Plan: 25-HYDROXY VITAMIN D Pt will complete vitamin D. Does not want medication. (E78.5) Hyperlipidemia, unspecified hyperlipidemia type Plan: COMPREHENSIVE METABOLIC PANEL, LIPID PANEL WITH DIRECT LDL IF TG IS HIGH Pt will complete lab studies. Will await results. (E66.01) Morbid obesity due to excess calories (HCC) Plan: weight loss encouraged. Patient counseling on weight management given. (Z13.9) Risk and functional assessment Plan: See nursing note. Follow-up: 3 months Total time today including reviewing chart before the visit, pertinent labs, imaging reports, face to face time, and documentation time was 36 minutes. Kimberlyn Brennan DO documented in this encounter Nursing Notes * Leora Orosco RN - 03/03/2023 2:23 PM EDT 3 month return documented in this encounter Plan of Treatment Upcoming Encounters Date Type Specialty Care Team Description 03/10/2023 Imaging Radiology 04/20/2023 Nurse Only Ancillary College, Nurse Annual Wellness Visit [address] [facility] [address] [place] [address] 05/26/2023 Office Visit Family Medicine Kimberlyn Brennan DO [address] [place] [address] Pending Results Name Type Priority Associated Diagnoses Date /Time TSH WITH FREE T4 IF INDICATED Lab Routine Acquired hypothyroidism 03/03/2023 3:33 PM EDT HEMOGLOBIN A1C Lab Routine Type 2 diabetes mellitus with hemoglobin A1c goal of less than 7.0% ([facility]) 03/03/2023 3:33 PM EDT COMPREHENSIVE METABOLIC PANEL Lab Routine Hyperlipidemia, unspecified hyperlipidemia type 03/03/2023 3:33 PM EDT LIPID PANEL WITH DIRECT LDL IF TG IS HIGH Lab Routine Hyperlipidemia, unspecified hyperlipidemia type 03/03/2023 3:33 PM EDT VITAMIN B12 Lab Routine Type 2 diabetes mellitus with hemoglobin A1c goal of less than 7.0% ([facility]) Vitamin B 12 deficiency 03/03/2023 3:33 PM EDT 25-HYDROXY VITAMIN D Lab Routine Age-related osteoporosis without current pathological fracture 03/03/2023 3:33 PM EDT CBC WITH WBC DIFFERENTIAL Lab Routine Pelvic pain in female 03/03/2023 3:33 PM EDT Scheduled Orders Name Type Priority Associated Diagnoses Orde r Schedule TSH WITH FREE T4 IF INDICATED Lab Routine Acquired hypothyroidism Expected: 03/03/2023 (Approximate), Expires: 03/03/2024 US PELVIS TRANS-VAGINAL NON-OB Medical Imaging Routine Pelvic pain in female Expected: 03/03/2023, Expires: 04/03/2024 HEMOGLOBIN A1C Lab Routine Type 2 diabetes mellitus with hemoglobin A1c goal of less than 7.0% (HCC) Expected: 03/03/2023 (Approximate), Expires: 03/02/2024 COMPREHENSIVE METABOLIC PANEL Lab Routine Hyperlipidemia, unspecified hyperlipidemia type Expected: 03/03/2023 (Approximate), Expires: 03/02/2024 LIPID PANEL WITH DIRECT LDL IF TG IS HIGH Lab Routine Hyperlipidemia, unspecified hyperlipidemia type Expected: 03/03/2023, Expires: 03/03/2024 VITAMIN B12 Lab Routine Type 2 diabetes mellitus with hemoglobin A1c goal of less than 7.0% (HCC) Vitamin B 12 deficiency Expected: 03/03/2023 (Approximate), Expires: 03/02/2024 25-HYDROXY VITAMIN D Lab Routine Age-related osteoporosis without current pathological fracture Expected: 03/03/2023 (Approximate), Expires: 03/02/2024 ALBUMIN / CREATININE RATIO, URINE Lab Routine Type 2 diabetes mellitus with hemoglobin A1c goal of less than 7.0% (HCC) Expected: 03/03/2023 (Approximate), Expires: 03/02/2024 CBC WITH WBC DIFFERENTIAL Lab Routine Pelvic pain in female Expected: 03/03/2023 (Approximate), Expires: 03/03/2024 Health Maintenance Due Date Last Done Comments Mammogram 1995 VITAMIN D LEVEL ONCE IN A LIFETIME-USE SMARTSET# [id number] 1995 Cologuard 2000 Colonoscopy 2000 Colorectal Cancer [...] this encounter Medical Devices Implanted Type Area Mandrel Cleaner Device Identifier Shelf Expiration Date Model / Serial / Lot Lens Intraoc 21.5 - [id number] - [id number] Implanted:Qty: 1 on 09/06/2022 by Slava Colón MD at OR [facility] Right: Eye [employer] 03/20/2027 [id number] / [id number] / [id number] Lens Intraoc 23.0 - [id number] - [id number] Implanted:Qty: 1 on 09/27/2022 by Slava Colón MD at OR [facility] Left: Eye [employer] 06/20/2027 [id number] / [id number] / documented as of this encounter Visit Diagnoses Diagnosis Pelvic pain in female- Primary Unspecified symptom associated with female genital organs Acquired hypothyroidism Unspecified hypothyroidism Type 2 diabetes mellitus with hemoglobin A1c goal of less than 7.0% ([facility]) Vitamin B 12 deficiency Other B-complex deficiencies Age-related osteoporosis without current pathological fracture Senile osteoporosis Hyperlipidemia, unspecified hyperlipidemia type Morbid obesity due to excess calories ([facility]) Risk and functional assessment Screening for unspecified condition documented in this encounter Advance Directives Documents on File Type Date Recorded 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 No Code Status History Code Status Date Activated Date Inactivated Comments No Code 09/06/2022 7:37 AM 09/06/2022 1:55 PM This order reflects the patients wishes and were consensually agreed upon. Question Answer Comments Discussion of Advance Directives occurred with: Patient Does the patient have a Living Will? No Does the patient have Health Care Power of Edge Plugger? No Care Teams Enterprise Cloud Architect Relationship Specialty Start Date End Date Kimberlyn Brennan, [address] [place] [address] PCP - General Family Medicine 02/24/22 documented as of this encounter
--- OUTSIDE RECORDS SUMMARY | 2023-08-17 23:12 | External Medical Summary | Summary of Care ---
Author Name Unknown Organization [facility] Address [address] [place] [address] Phone [phone] Care Team Providers Care Tag And Label Cutter Name Role Phone Kimberlyn Brennan DO Primary Care Provider [phone] Reason for Visit * Reason Onset Date Comments Medication Question 02/22/2023 Encounter Details Date Type Department Care Team Description 02/22/2023 Telephone Family Practice [address] [facility] [place] [address] [place] [address] Kimberlyn Brennan DO [address] [place] [address] Medication Question Allergies Active Allergy Reactions Severity Noted Date Comments Gabapentin Diarrhea 09/20/2022 Pollen 05/15/2011 Propranolol Diarrhea 09/20/2022 documented as of this encounter (statuses as of 02/22/2023) Medications Medication Sig Dispensed Refills Start Date [...] as of this encounter (statuses as of 02/22/2023) Active Problems Problem Noted Date Hypothyroidism 11/10/2022 [...] as of this encounter (statuses as of 02/22/2023) Resolved Problems Problem Noted Date Resolved Date Type 2 diabetes mellitus wit h diabetic peripheral angiopathy without gangrene 02/24/2022 04/21/2022 Type 2 diabetes mellitus wit h diabetic peripheral angiopathy without gangrene 02/24/2022 04/21/2022 Acquired hypothyroidism 10/16/2019 09/07/19 23 Body mass index (BMI) of 40.0 to 44.9 in adult 1 03/03/2022 Overview: Per Obesity protocol #1 documented as of this encounter (statuses as of 02/22/2023) Immunizations Name Administration Dates Next Due Covid-19 Ad26, Single Dose (anfix/J&J) 021 Covid-19, Mrna, Lnp-s, Pf, B ivalent, 30 Mcg, IM, 12 yrs and above ([facility]) 08/30/2022 Pneumococcal Conjugate Vaccine, 20-valent (Prevn ar20) [...] Packs/Day Years Used Date Smoking Tobacco: Never Smokeless Tobacco: Never Alcohol Use Standard Drinks/Week Comments No 0 (1 standard drink = 0.6 oz pur e alcohol) Food Insecurity Answer Date Recorded Within the past 12 months, y ou worried that your food would run out before you got money to buy more. Never true 12/02/2022 Within the past 12 months, t he food you bought just didn't last and you didn't have money to get more. Never true 12/02/2022 Sex Assigned at Date Recorded Female 04/15/2019 1:08 PM E DT Job Start Date Occupation Industry Not on file Not on file Not on file documented as of this encounter Miscellaneous Notes * Telephone Encounter - Alexa Edmondson CPhT - 02/22/2023 2:03 PM EDT Pt calling to request Pregabalin 25 MG Oral Capsule (Lyrica) and Venlafaxine HCl ER 150 MG Oral Capsule Extended Release 24 Hour (Effexor XR). Informed pt that RX is available at their pharmacy. Pt verbalized understanding and stated they will check with their pharmacy regarding this medication. Thank you, Alexa Edmondson Scuba Instructor [facility] ([facility]) 02/22/2023, 2:05 PM documented in this encounter Plan of Treatment Upcoming Encounters Date Type Specialty Care Team Description 03/03/2023 Office Visit Family Medicine Kimberlyn Brennan, DO [address] [place] [address] 04/20/2023 Nurse Only [employer]illary [employer], Nurse Annual Wellness Visit [address] [facility] [address] [place] [address] Health Maintenance Due Date Last Done Comments Mammogram 1995 VITAMIN D LEVEL ONCE IN A LIFETIME-USE SMARTSET# [id number] 1995 Cologuard 2000 Colonoscopy 2000 Colorectal Cancer [...] this encounter Medical Devices Implanted Type Area Prior Authorization Technician Device Identifier Shelf Expiration Date Model / Serial / Lot Lens Intraoc 21.5 - [id number] - [id number] Implanted:Qty: 1 on 09/06/2022 by Slava Colón MD at OR [facility] Right: Eye [employer] 03/20/2027 [id number] / [id number] / [id number] Lens Intraoc 23.0 - [id number] - [id number] Implanted:Qty: 1 on 09/27/2022 by Slava Colón MD at OR [facility] Left: Eye [employer] 06/20/2027 [id number] / [id number] / documented as of this encounter Visit Diagnoses Diagnosis Diabetic neuropathy (HCC) Type II or unspecified type diabetes mellitus with neurological manifestations, not stated as uncontrolled DWIGHT (generalized anxiety disorder) Generalized anxiety disorder Other obsessive-compulsive disorders documented in this encounter Advance Directives Documents on File Type Date Recorded 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 No Code Status History Code Status Date Activated Date Inactivated Comments No Code 09/06/2022 7:37 AM 09/06/2022 1:55 PM This order reflects the patients wishes and were consensually agreed upon. Question Answer Comments Discussion of Advance Directives occurred with: Patient Does the patient have a Living Will? No Does the patient have Health Care Power of Group Leader? No Care Teams Tag And Label Cutter Relationship Specialty Start Date End Date Kimberlyn Brennan, [address] [place] [address] PCP - General Family Medicine 02/24/22 documented as of this encounter
--- OUTSIDE RECORDS SUMMARY | 2023-08-17 23:12 | External Medical Summary | Summary of Care ---
Author Name Unknown Organization [facility] Address [address] [place] [address] Phone [phone] Care Team Providers Care Credit Investigator Name Role Phone Kimberlyn Brennan DO Primary Care Provider [phone] Reason for Visit * Reason Onset Date Comments Med Request 02/22/2023 Encounter Details Date Type Department Care Team Description 02/22/2023 Telephone Family Practice [facility], [place] [address] [place] [address] Kimberlyn Brennan DO [address] [place] [address] Med Request Allergies Active Allergy Reactions Severity Noted Date [...] Dates Next Due Covid-19 Ad26, Single Dose (Tucker [employer]/J&J) 021 Covid-19, Mrna, Lnp-s, Pf, B ivalent, 30 Mcg, IM, 12 yrs and above (Draft) 08/30/2022 Pneumococcal Conjugate Vaccine, 20-valent (Prevn ar20) [...] encounter Miscellaneous Notes * Telephone Encounter - SRIKANTH Montgomery - 02/22/2023 2:14 PM EDT Pt calling to request atorvastatin. Informed pt that RX is available at their pharmacy. Pt verbalized understanding and stated they will check with their pharmacy regarding this medication. Thanks, Alba Rider Yarn Polishing Machine Operator [facility] 02/22/2023,2:14 PM documented in this encounter Plan of Treatment Upcoming Encounters Date Type Specialty Care Team Description 03/03/2023 Office Visit Family Medicine Kimberlyn Brennan, DO [address] [place] [address] 04/20/2023 Nurse Only Ancillary College, Nurse Annual Wellness Visit [address] [facility] [address] [place] [address] Health Maintenance Due Date Last Done Comments Mammogram 1995 VITAMIN D LEVEL ONCE IN A LIFETIME-USE SMARTSET# [id number] 1995 Cologuard 2000 Colonoscopy 2000 Colorectal Cancer Screening 2000 Fecal Occult Blood Test 2000 Sigmoidoscopy 2000 *SPIROMETRY ONCE FOR ASTHMA-ADULT 10/18/2019 HbA1c 03/28/2022 09/28/2021, 11/19, 06/01/2020, Additional history exists Albumin/Creatinine Ratio 09/28/2022 022, 06/01/2020, 07/16/2019, Additional history exists GFR 09/28/2022 09/28/2021, 11/19, 06/01/2020, Additional history exists TSH 02/12/2023 02/12/2022, 02/0 03/2022, 12/01/2020, Additional history exists DIABETES-EYE EXAM 03/10/2023 [...] this encounter Medical Devices Implanted Type Area Crystal Mounter Device Identifier Shelf Expiration Date Model / Serial / Lot Lens Intraoc 21.5 - [id number] - [id number] Implanted:Qty: 1 on 09/06/2022 by Slava Colón MD at OR [facility] Right: Eye [employer] 03/20/2027 [id number] / [id number] / [id number] Lens Intraoc 23.0 - [id number] - [id number] Implanted:Qty: 1 on 09/27/2022 by Slava Colón MD at OR [facility] Left: Eye [employer]OM[employer] 06/20/2027 [id number] / [id number] / documented as of this encounter Advance Directives Documents on File Type Date Recorded 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 No Code Status History Code Status Date Activated Date Inactivated Comments No Code 09/06/2022 7:37 AM 09/06/2022 1:55 PM This order reflects the patients wishes and were consensually agreed upon. Question Answer Comments Discussion of Advance Directives occurred with: Patient Does the patient have a Living Will? No Does the patient have Health Care Power of Network Communications Engineer? No Care Teams Credit Investigator Relationship Specialty Start Date End Date Kimberlyn Brennan, DO [address] [place] [address] PCP - General Family Medicine 02/24/22 documented as of this encounter
[2023-08-18] MEDS: SODIUM CHLORIDE 0.9% 1,000 ML IV SCH ×4 (00:52→23:48)
[2023-08-18] MEDS: POTASSIUM CHLORIDE / WTR 10 MEQ/100 ML PLCT IV SCH ×2 (00:53→03:06)
[2023-08-18] MEDS: ENOXAPARIN INJ 40 MG/0.4 ML SYR SQ SCH ×3 (01:40→21:37)
[2023-08-18] MEDS: MELATONIN 3 MG TAB PO SCH ×2 (01:44→20:37)
[2023-08-18] MEDS: oxyCODONE HCL IR 5 MG TAB (IMMEDIATE RELEASE) PO PRN ×2 (01:51→08:35)
[2023-08-18] MEDS: ALENDRONATE SODIUM 10 MG TAB PO SCH (05:43)
[2023-08-18] MEDS: LEVOTHYROXINE SODIUM 112 MCG TABLET PO SCH (05:43)
[2023-08-18] MEDS: INSULIN ASPART PER UNIT CHARGE SC SCH ×4 (08:29→20:33)
[2023-08-18] MEDS: FLUTICASONE FUROATE 200MCG 14 PUFFS/INHALER INH SCH (08:34)
[2023-08-18] MEDS: POLYETHYLENE (MIRALAX) 17 GM PACK PO SCH (08:35)
[2023-08-18] MEDS: VENLAFAXINE HCL XR 75 MG CAPXR PO SCH (08:36)
[2023-08-18] MEDS: MONTELUKAST SODIUM 10 MG TABLET PO SCH (08:36)
[2023-08-18] MEDS: PRIMIDONE 50 MG TAB PO SCH ×3 (08:36→20:37)
[2023-08-18] MEDS: PREGABALIN 25 MG CAP PO SCH ×2 (08:36→20:37)
[2023-08-18] MEDS: CEROVITE ADV FORMULA TAB PO SCH (08:36)
[2023-08-18] MEDS: POTASSIUM CHLORIDE 10 MEQ TABCR PO SCH (08:36)
[2023-08-18] MEDS: METOPROLOL SUCC 25MG EXT REL TAB PO SCH (08:36)
[2023-08-18] MEDS: GALANTAMINE HYDROBROMIDE 4 MG TAB PO SCH ×2 (08:37→20:37)
[2023-08-18] MEDS: MEMANTINE HCL 10 MG TAB PO SCH ×2 (08:37→20:37)
[2023-08-18] MEDS: CYANOCOBALAMIN (B-12) 500 MCG TABLET PO SCH (08:38)
[2023-08-18] MEDS: CALCIUM 600MG + VIT D 400 IU TAB PO SCH (08:38)
[2023-08-18] MEDS: ASPIRIN 81 MG ECTAB PO SCH (08:38)
[2023-08-18 08:44] LABS: Basophils # (auto) 0.05 K/uL (0.00-0.20); Basophils % (auto) 0.6 %; Eosinophils # (auto) 0.14 K/uL (0.00-0.50); Eosinophils % (auto) 1.7 %; Hematocrit (blood only) 36.5 % (37.0-47.0); Immature Granulocytes # (auto) 0.03 K/uL (0.01-0.20); Immature Granulocytes % (auto) 0.4 %; Lymphocytes # (auto) 1.62 K/uL (1.20-3.40); Lymphocytes % (auto) 19.2 %; Mean Corpuscular Hemoglobin 31.9 pg (25.0-34.0); Mean Corpuscular Hgb Conc 32.9 g/dL (32.0-36.0); Mean Corpuscular Volume 97.1 fL (80.0-100.0); Mean Platelet Volume 10.4 fL (9.4-12.4); Monocytes # (auto) 0.48 K/uL (0.11-0.59); Monocytes % (auto) 5.7 %; Neutrophils # (auto) 6.13 K/uL (1.40-6.50); Neutrophils % (auto) 72.4 %; Platelet Count 251 K/uL (130-400); RDW Coefficient of Variation 13.4 % (11.5-14.5); RDW Standard Deviation 47.8 fL (36.4-46.3); Red Blood Count 3.76 M/uL (4.20-5.40); White Blood Count 8.45 K/ul (4.8-10.8)
--- NOTE | 2023-08-18 08:49 | CT Scan Report ---
CT lumbar spine wo con HISTORY: 68 years-old Female lumbar fracture acute low back pain COMPARISON: CT abdomen and pelvis 08/17/2023, 11/10/2022 TECHNIQUE: Multiple axial CT images of the lumbar spine were obtained without the use of IV contrast. A dose lowering technique was used consistent with the principals of ALA. FINDINGS: Mild multilevel and vertebral disc space narrowing with mild to moderate spondylitic spurring. There is mostly moderate multilevel facet arthrosis, however facet arthropathy at L4-L5 and L5-S1 is severe . 25% superior endplate compression deformity at L1 with fracture line extending into both the anteri or and posterior endplates redemonstrated. Small amount of subcortical gas is noted within the superi or aspect of the L1 vertebral body. Mild paravertebral edema again noted. 2 mm retropulsion without s ignificant central canal stenosis. No additional acute fracture or subluxation. No high-grade central canal stenosis identified. Multilevel neural foraminal narrowing is mostly mild . IMPRESSION: 1. 25% superior endplate compression deformity of L1 with associated paravertebral edema is again not ed which appears acute. There is 2 mm retropulsion without significant central canal stenosis. 2. No additional acute fracture or subluxation identified. ACT 112: Negative or not required by law. The above report was generated using voice recognition software. It may contain grammatical, syntax o r spelling errors. Electronically signed by: Se Rockwell M.D. 08/18/2023 8:46 AM
[2023-08-18 08:58] LABS: BUN Creatinine Ratio 39.6 (10-20); Calcium 7.6 mg/dl (8.6-10.3); Creatinine Clr Calc Pharmacy 124.4 ml/min; Est GFR (African American) 113.1 ml/min; Est GFR (Non-African American) 97.6 ml/min; Magnesium 1.1 mg/dl (1.7-2.4); Phosphorus 3.1 mg/dl (2.5-4.9); Potassium 3.2 mmol/L (3.5-5.1)
[2023-08-18 09:28] LABS: Estimated Average Glucose 114 mg/dl; Hemoglobin A1C 5.6 % (4.5-5.6)
--- NOTE | 2023-08-18 11:09 | Electrocardiogram Report ---
Test Reason : Blood Pressure : / mmHG Vent. Rate : 068 BPM Atrial Rate : 068 BPM P-R Int : 168 ms QRS Dur : 100 ms QT Int : 446 ms P-R-T Axes : 106 -54 056 degrees QTc Int : 474 ms Normal sinus rhythm Incomplete right bundle branch block Left anterior fascicular block Poor R wave progression, consider anterior AK vs. lead placement vs. LVH Abnormal ECG When compared with ECG of 21-APR-2021 17:04, No significant change was found Confirmed by Viral Roy ([id number]) on 08/18/2023 11:09:35 AM Referred By: REFERRED SELF Confirmed By:Pepe Roy
[2023-08-18] MEDS: amLODIPine BESYLATE 5 MG TAB PO SCH (11:38)
[2023-08-18] MEDS ORDERED: PROMETHAZINE HCL 12.5 MG in SODIUM CHLORIDE 0.9% 50 ML IV PRN (12:59)
[2023-08-18] MEDS ORDERED: ALUMINUM/MAGNESIUM SUSP 30 ML UDC PO STA (13:36)
[2023-08-18] MEDS: PANTOprazole 40 MG in SYRINGE 0 ML IV SCH ×2 (14:44→20:37)
--- NOTE | 2023-08-18 16:05 | Hospitalist Progress Note ---
Date of Service August 18, 2023 Assessment & Plan (1) Fall: Plan: Per admitting service notes with addendum 68-year-old female with past medical history significant for hyperlipidemia, type 2 diabetes, diabetic neuropathy, hypothyroidism, mild persistent asthma, hypertension, morbid obesity, early onset Alzheimer's dementia without behavioral disturbance, generalized anxiety disorder, obsessive-compulsive disorder , tremors who lives alone at home was brought in because of fall 3 days ago and not able to get up and was laying on the floor. Patient is currently alert and oriented. Patient states she was looking at the window and when she turned she fell down. Thinks she hit her head but no loss of consciousness. And she could not able to get up. Her phone was very far away. She cannot reach the phone. Seems today Police were called by family for welfare check as family not heard from her for last few days. Patient can tell her name. Knows her date of . Knows that she is in [facility]. Knows today is . Can tell the month and year. Knows the county. Knows the president. Patient says she had a headache earlier but that got resolved. She has some back pain. Has some cough and runny nose. No sore throat. No chest pain or shortness of breath. Has mild abdominal discomfort. States she is constipated. Seems wetting herself when she was on the floor. Currently hemodynamically stable. Says she has a walker but states she does not use it. Fall Ambulatory dysfunction Was laying on the floor for last 3 days not able to get up CPK levels are okay Except for hypokalemia rest of the Labs seems okay Imaging studies shows L1 compression fracture age indeterminate We will admit to medical floor IV fluids Social service to help with discharge planning 08/18 Pain control L1 compression fracture Pain control Orthospine consult PT OT when stable 08/18 Waiting for Ortho recommendations PT and OT evaluation Dyspepsia Trial of Maalox, Protonix CT abdomen pelvis showing colitis but patient denies diarrhea Hypertension Amlodipine 5 mg p.o. daily started Monitor Hypokalemia We will replace Continue home potassium supplements Monitor closely Diabetes Hold metformin Insulin sliding scale We will monitor Early onset Alzheimer's dementia Seems alert and oriented currently Continue memantine and galantamine Monitor for delirium Tremors On primidone Hypertension On metoprolol succinate Amlodipine started Mild persistent asthma Seems stable Continue home inhalers Generalized anxiety disorder On venlafaxine Hypothyroidism On Synthyroid DVT prophylaxis Lovenox Disposition Medical floor Full code Admission and Anticipated Discharge Date Admission Date: August 17, 2023 Subjective Follow-up for fall, ambulatory dysfunction, etc. Seen resting in bed, comfortable, but spirits Reports abdominal discomfort-burning Was nauseated earlier Denies chest pain, shortness of breath, headache, dizziness Has some back pain No leg weakness or paresthesias No other symptoms Review of Systems Review of Systems: all noted and negative except for above Physical Exam Physical Exam: General- oriented x 3, not in distress, speaks in sentences with no effort or accessory muscle use Eyes- anicteric Neck- no JVD Lungs- clear breath sounds bilaterally, no rales/wheezes Heart- normal rate, regular rhythm; no murmurs Abdomen- normal bowel sounds, nondistended, soft, nontender Extremities- no pretibial edema, no calf tenderness Neuro- alert, oriented x 3; no gross focal neurologic deficits Skin- warm & dry Results & Data Results & Data Vital Signs (Past 12 Hours) Vital Signs Temp Pulse Resp BP Pulse Ox O2 Del Method 08/18/23 15:10 36.7 C 71 18 150/87 H 93 Room Air 08/18/23 11:00 Room Air 08/18/23 07:01 36.8 C 77 18 168/81 H 93 Room Air all noted and reviewed including below
--- NOTE | 2023-08-18 16:24 | Orthopedic Consultation ---
Date of Consultation August 18, 2023 Assessment & Plan (1) Closed compression fracture of body of L1 vertebra: Assessment L1 compression fracture. Plan at this time in light of her multiple medical issues would like to avoid any surgical intervention. I would attempt physical therapy occupational therapy as tolerated. She should not lift more than 5 pounds. Her body habitus would make a brace somewhat difficult to maintain. This may be an option if she fails to improve over the course the next few days with therapy. History of Present Illness Reason for Consultation: Status post fall with compression fracture Attending Physician: Panda Richard MD History of Present Illness This is a 68-year-old female with multiple medical issues and was found at home after having had a fall. She was on the ground for several days. She is currently in bed. She is alert. She does describe back pain. She denies any numbness or tingling in the lower extremities. Allergies Allergy/AdvReac Type Severity Reaction Status Date / Time gabapentin AdvReac Diarrhea Verified 08/17/23 19:41 propranolol AdvReac Diarrhea Verified 08/17/23 19:41 Home Medications Medication Instructions Recorded Confirmed Type fluticasone propionate 220 1 puff inhalation UD 05/08/19 08/17/23 History mcg/actuation HFA aerosol inhaler levothyroxine 112 mcg tablet 112 mcg PO DAILY 05/08/19 08/17/23 History montelukast 10 mg tablet 10 mg PO DAILY 05/08/19 08/17/23 History multivitamin (Daily Multi-Vitamin 1 tab PO DAILY 05/08/19 08/17/23 History tablet) potassium chloride 10 mEq 30 meq PO DAILY 05/08/19 08/17/23 History tablet,extended release metformin 500 mg tablet 500 mg PO BIDM 09/24/19 08/17/23 History mecobalamin (vitamin B12) 1,000 1,000 mcg sublingual DAILY #30 tabs 02/21/22 08/17/23 Rx mcg disintegrating tablet,sublingual memantine 10 mg tablet 10 mg PO BID 90 days #180 tabs 09/16/22 08/17/23 Rx pregabalin 25 mg capsule 25 mg PO BID 09/20/22 08/17/23 History alendronate 10 mg tablet 10 mg PO QAM 08/17/23 08/17/23 History aspirin 81 mg tablet,delayed 81 mg PO DAILY 08/17/23 08/17/23 History release calcium carbonate 600 mg-vitamin 1 tab PO DAILY 08/17/23 08/17/23 History D3 20 mcg (800 unit) chewable tablet (Caltrate 600 plus D) galantamine 12 mg tablet 12 mg PO AMHS 08/17/23 08/17/23 History melatonin 5 mg tablet 5 mg PO HS 08/17/23 08/17/23 History metoprolol succinate 25 mg 37.5 mg PO QAM 08/17/23 08/17/23 History tablet,extended release 24 hr polyethylene glycol 3350 17 gram 17 g PO DAILY 08/17/23 08/17/23 History oral powder packet (Miralax) primidone 50 mg tablet 50 mg PO TID 08/17/23 08/17/23 History venlafaxine 75 mg capsule,extended 75 mg PO DAILY 08/17/23 08/17/23 History release 24 hr Patient History Medical History Alzheimer's dementia Alzheimer's disease, unspecified Dementia Essential (primary) hypertension Essential tremor Essential tremor Fatigue Hypokalemia Hypomagnesemia Paresthesia Urinary frequency Surgical History History of cholecystectomy Family History Mother Alzheimer disease Cardiac disorder Father Lung cancer Sister Asthma Social History Smoking Status: Never smoker Second Hand Exposure: No; Do You Dip or Chew Tobacco: No; Hx Alcohol Use: No Hx Substance Use: No Preferred Language: Telugu Communication Ability: Effective Gear Design Engineer Required: No Beliefs That Will Affect Care: None Current Living Situation: Alone Current Living Situation Comment: daughter and son check in w/ pt and assist w/ home care needs and meds Feels Safe at Home: Yes Safety Concerns: Feels Safe At This Time Assistive Devices: Walker Physical Exam Physical Exam: On exam she is able to sit up. She has good strength testing lower extremities. Sensory is intact. Results & Data Vital Signs (Past 12 Hours) Vital Signs Temp Pulse Resp BP Pulse Ox O2 Del Method 12/29/23 15:10 36.7 C 71 18 150/87 H 93 Room Air 08/18/23 11:00 Room Air 08/18/23 07:01 36.8 C 77 18 168/81 H 93 Room Air
[2023-08-18 17:49] LABS: Appearance Urine Clear (Clear); Bilirubin Urine Negative (Negative); Blood Urine Negative (Negative); Color Urine Yellow; Glucose Urine UA Negative (Negative); Ketones Urine 3+ (Negative); Leukocyte Esterase Urine Negative (Negative); Nitrite Urine Negative (Negative); Protein Urine Negative (Negative); Specific Gravity Urine 1.019 (1.000-1.030); Urobilinogen Urine Negative (Negative)
[2023-08-18] MEDS: ACETAMINOPHEN 325 MG TAB PO PRN (20:47)
[2023-08-18] MEDS ORDERED: cloNIDine HCL 0.1 MG TAB PO ONE (22:12)
[2023-08-19] MEDS: LEVOTHYROXINE SODIUM 112 MCG TABLET PO SCH (05:35)
[2023-08-19] MEDS: ALENDRONATE SODIUM 10 MG TAB PO SCH (05:36)
[2023-08-19] MEDS: oxyCODONE HCL IR 5 MG TAB (IMMEDIATE RELEASE) PO PRN ×3 (05:36→18:47)
[2023-08-19 06:56] LABS: Creatinine Clr Calc Pharmacy 137.3 ml/min; Est GFR (African American) 116.8 ml/min; Est GFR (Non-African American) 100.8 ml/min; Magnesium 1.2 mg/dl (1.7-2.4); Potassium 2.9 mmol/L (3.5-5.1)
[2023-08-19] MEDS: SODIUM CHLORIDE 0.9% 1,000 ML IV SCH ×3 (07:55→23:21)
[2023-08-19] MEDS: CYANOCOBALAMIN (B-12) 500 MCG TABLET PO SCH (08:17)
[2023-08-19] MEDS: amLODIPine BESYLATE 5 MG TAB PO SCH (08:17)
[2023-08-19] MEDS: ASPIRIN 81 MG ECTAB PO SCH (08:17)
[2023-08-19] MEDS: MONTELUKAST SODIUM 10 MG TABLET PO SCH (08:18)
[2023-08-19] MEDS: GALANTAMINE HYDROBROMIDE 4 MG TAB PO SCH ×2 (08:18→20:34)
[2023-08-19] MEDS: CALCIUM 600MG + VIT D 400 IU TAB PO SCH (08:18)
[2023-08-19] MEDS: MEMANTINE HCL 10 MG TAB PO SCH ×2 (08:18→20:34)
[2023-08-19] MEDS: VENLAFAXINE HCL XR 75 MG CAPXR PO SCH (08:18)
[2023-08-19] MEDS: PRIMIDONE 50 MG TAB PO SCH ×3 (08:18→20:34)
[2023-08-19] MEDS: METOPROLOL SUCC 25MG EXT REL TAB PO SCH (08:19)
[2023-08-19] MEDS: CEROVITE ADV FORMULA TAB PO SCH (08:19)
[2023-08-19] MEDS: PANTOprazole 40 MG in SYRINGE 0 ML IV SCH ×2 (08:19→20:33)
[2023-08-19] MEDS: FLUTICASONE FUROATE 200MCG 14 PUFFS/INHALER INH SCH (08:19)
[2023-08-19] MEDS: PREGABALIN 25 MG CAP PO SCH ×2 (09:32→20:33)
[2023-08-19] MEDS: POTASSIUM CHLORIDE 10 MEQ TABCR PO SCH (09:32)
[2023-08-19] MEDS: POLYETHYLENE (MIRALAX) 17 GM PACK PO SCH (09:33)
[2023-08-19] MEDS: INSULIN ASPART PER UNIT CHARGE SC SCH ×4 (09:35→21:15)
[2023-08-19] MEDS: ENOXAPARIN INJ 40 MG/0.4 ML SYR SQ SCH ×2 (12:47→21:39)
[2023-08-19] MEDS: ACETAMINOPHEN 325 MG TAB PO PRN (17:40)
[2023-08-19] MEDS ORDERED: amLODIPine BESYLATE 5 MG TAB PO ONE (19:40)
--- NOTE | 2023-08-19 19:40 | Hospitalist Progress Note ---
Date of Service August 19, 2023 delayed entry date of service noted above Assessment & Plan (1) Fall: Plan: Per admitting service notes with addendum 68-year-old female with past medical history significant for hyperlipidemia, type 2 diabetes, diabetic neuropathy, hypothyroidism, mild persistent asthma, hypertension, morbid obesity, early onset Alzheimer's dementia without behavioral disturbance, generalized anxiety disorder, obsessive-compulsive disorder , tremors who lives alone at home was brought in because of fall 3 days ago and not able to get up and was laying on the floor. Patient is currently alert and oriented. Patient states she was looking at the window and when she turned she fell down. Thinks she hit her head but no loss of consciousness. And she could not able to get up. Her phone was very far away. She cannot reach the phone. Seems today Police were called by family for welfare check as family not heard from her for last few days. Patient can tell her name. Knows her date of . Knows that she is in [facility]. Knows today is . Can tell the month and year. Knows the county. Knows the president. Patient says she had a headache earlier but that got resolved. She has some back pain. Has some cough and runny nose. No sore throat. No chest pain or shortness of breath. Has mild abdominal discomfort. States she is constipated. Seems wetting herself when she was on the floor. Currently hemodynamically stable. Says she has a walker but states she does not use it. Fall Ambulatory dysfunction Was laying on the floor for last 3 days not able to get up CPK levels are okay Except for hypokalemia rest of the Labs seems okay Imaging studies shows L1 compression fracture age indeterminate We will admit to medical floor IV fluids Social service to help with discharge planning 08/19 Pain control PT/OT L1 compression fracture Pain control Orthospine consult PT OT when stable Dyspepsia Trial of Maalox, Protonix CT abdomen pelvis showing colitis but patient denies diarrhea Hypertension Amlodipine 5 mg p.o. daily started Monitor Hypokalemia We will replace Continue home potassium supplements Monitor closely Diabetes Hold metformin Insulin sliding scale We will monitor Early onset Alzheimer's dementia Seems alert and oriented currently Continue memantine and galantamine Monitor for delirium Tremors On primidone Hypertension On metoprolol succinate Amlodipine started Mild persistent asthma Seems stable Continue home inhalers Generalized anxiety disorder On venlafaxine Hypothyroidism On Synthyroid DVT prophylaxis Lovenox Disposition Medical floor Full code Admission and Anticipated Discharge Date Admission Date: August 17, 2023 Subjective ff up for back pain, etc seen resting in bed, comfortable still having some back pain no chest pain, dyspnea, palpitations, dizziness no other symptoms Review of Systems Review of Systems: all noted and negative except for above Physical Exam Physical Exam: General- oriented x 3, not in distress, speaks in sentences with no effort or accessory muscle use Eyes- anicteric Neck- no JVD Lungs- clear breath sounds bilaterally, no rales/wheezes Heart- normal rate, regular rhythm; no murmurs Abdomen- normal bowel sounds, nondistended, soft, nontender Extremities- no pretibial edema, no calf tenderness Neuro- alert, oriented x 3; no gross focal neurologic deficits Skin- warm & dry Results & Data Results & Data Vital Signs (Past 12 Hours) Vital Signs Temp Pulse Resp BP Pulse Ox O2 Del Method 08/19/23 17:08 36.9 C 66 16 182/90 H 94 Room Air all noted and reviewed including below
[2023-08-19] MEDS: MELATONIN 3 MG TAB PO SCH (20:32)
[2023-08-19] MEDS: hydrALAZINE HCL 20 MG/ML VIAL IV PRN (23:27)
[2023-08-20] MEDS: oxyCODONE HCL IR 5 MG TAB (IMMEDIATE RELEASE) PO PRN ×3 (02:29→18:19)
[2023-08-20] MEDS: SODIUM CHLORIDE 0.9% 1,000 ML IV SCH (05:36)
[2023-08-20] MEDS: ALENDRONATE SODIUM 10 MG TAB PO SCH (05:36)
[2023-08-20] MEDS: LEVOTHYROXINE SODIUM 112 MCG TABLET PO SCH (05:36)
[2023-08-20] MEDS: hydrALAZINE HCL 20 MG/ML VIAL IV PRN ×2 (07:27→23:19)
[2023-08-20 08:41] LABS: BUN Creatinine Ratio 16.7 (10-20); Calcium 7.4 mg/dl (8.6-10.3); Est GFR (African American) 122.1 ml/min; Est GFR (Non-African American) 105.3 ml/min; Magnesium 1.3 mg/dl (1.7-2.4)
[2023-08-20] MEDS ORDERED: hydroCHLOROthiazide 25 MG TAB PO STA (09:18)
[2023-08-20] MEDS: INSULIN ASPART PER UNIT CHARGE SC SCH ×4 (09:50→20:54)
[2023-08-20] MEDS: PREGABALIN 25 MG CAP PO SCH ×2 (09:56→20:51)
[2023-08-20] MEDS: ASPIRIN 81 MG ECTAB PO SCH (09:57)
[2023-08-20] MEDS: MEMANTINE HCL 10 MG TAB PO SCH ×2 (09:57→20:47)
[2023-08-20] MEDS: CYANOCOBALAMIN (B-12) 500 MCG TABLET PO SCH (09:57)
[2023-08-20] MEDS: GALANTAMINE HYDROBROMIDE 4 MG TAB PO SCH ×2 (09:57→20:46)
[2023-08-20] MEDS: CALCIUM 600MG + VIT D 400 IU TAB PO SCH (09:57)
[2023-08-20] MEDS: amLODIPine BESYLATE 5 MG TAB PO SCH (09:57)
[2023-08-20] MEDS: MONTELUKAST SODIUM 10 MG TABLET PO SCH (09:58)
[2023-08-20] MEDS: METOPROLOL SUCC 25MG EXT REL TAB PO SCH (09:58)
[2023-08-20] MEDS: CEROVITE ADV FORMULA TAB PO SCH (09:59)
[2023-08-20] MEDS: PRIMIDONE 50 MG TAB PO SCH ×3 (09:59→20:46)
[2023-08-20] MEDS: VENLAFAXINE HCL XR 75 MG CAPXR PO SCH (09:59)
[2023-08-20] MEDS: FLUTICASONE FUROATE 200MCG 14 PUFFS/INHALER INH SCH (10:06)
[2023-08-20] MEDS: PANTOprazole 40 MG in SYRINGE 0 ML IV SCH ×2 (10:06→20:48)
[2023-08-20] MEDS: POTASSIUM CHLORIDE 10 MEQ TABCR PO SCH (10:06)
[2023-08-20] MEDS: POLYETHYLENE (MIRALAX) 17 GM PACK PO SCH (10:13)
[2023-08-20] MEDS: MAGNESIUM OXIDE 400 MG TAB PO SCH ×2 (10:45→20:46)
[2023-08-20] MEDS: ENOXAPARIN INJ 40 MG/0.4 ML SYR SQ SCH ×2 (10:46→22:30)
[2023-08-20] MEDS: MAGNESIUM SULFATE / D5W 1 GM/100 ML BAG IV SCH ×2 (10:52→12:47)
[2023-08-20 15:44] LABS: BUN Creatinine Ratio 17.9 (10-20); Calcium 7.6 mg/dl (8.6-10.3); Creatinine Clr Calc Pharmacy 117.7 ml/min; Est GFR (Non-African American) 95.8 ml/min; Magnesium 1.9 mg/dl (1.7-2.4)
[2023-08-20] MEDS ORDERED: POTASSIUM CHLORIDE CRTAB 20 MEQ TABCR PO STA (18:16)
--- NOTE | 2023-08-20 19:34 | Hospitalist Progress Note ---
Date of Service August 20, 2023 delayed entry date of service noted above Assessment & Plan (1) Fall: Plan: Per admitting service notes with addendum 68-year-old female with past medical history significant for hyperlipidemia, type 2 diabetes, diabetic neuropathy, hypothyroidism, mild persistent asthma, hypertension, morbid obesity, early onset Alzheimer's dementia without behavioral disturbance, generalized anxiety disorder, obsessive-compulsive disorder , tremors who lives alone at home was brought in because of fall 3 days ago and not able to get up and was laying on the floor. Patient is currently alert and oriented. Patient states she was looking at the window and when she turned she fell down. Thinks she hit her head but no loss of consciousness. And she could not able to get up. Her phone was very far away. She cannot reach the phone. Seems today Police were called by family for welfare check as family not heard from her for last few days. Patient can tell her name. Knows her date of . Knows that she is in [facility]. Knows today is . Can tell the month and year. Knows the county. Knows the president. Patient says she had a headache earlier but that got resolved. She has some back pain. Has some cough and runny nose. No sore throat. No chest pain or shortness of breath. Has mild abdominal discomfort. States she is constipated. Seems wetting herself when she was on the floor. Currently hemodynamically stable. Says she has a walker but states she does not use it. Fall Ambulatory dysfunction Was laying on the floor for last 3 days not able to get up CPK levels are okay Except for hypokalemia rest of the Labs seems okay Imaging studies shows L1 compression fracture age indeterminate We will admit to medical floor IV fluids Social service to help with discharge planning 08/20 pain management PT/OT L1 compression fracture Pain control Orthospine consult: no surgery PT OT when stable Dyspepsia Trial of Maalox, Protonix CT abdomen pelvis showing colitis but patient denies diarrhea Hypertension Amlodipine 5 mg p.o. daily started add HCTZ prn Hydralazine Hypokalemia We will replace Continue home potassium supplements Monitor closely Diabetes Hold metformin Insulin sliding scale We will monitor Early onset Alzheimer's dementia Seems alert and oriented currently Continue memantine and galantamine Monitor for delirium Tremors On primidone Hypertension On metoprolol succinate Amlodipine started Mild persistent asthma Seems stable Continue home inhalers Generalized anxiety disorder On venlafaxine Hypothyroidism On Synthyroid DVT prophylaxis Lovenox Disposition Medical floor Full code Admission and Anticipated Discharge Date Admission Date: August 17, 2023 Subjective ff up for back pain, etc seen resting in bed, comfortable states back improving denies leg pain/weakness no other new symptoms Review of Systems Review of Systems: all noted and negative except for above Physical Exam Physical Exam: General- oriented x 3, not in distress, speaks in sentences with no effort or accessory muscle use Eyes- anicteric Neck- no JVD Lungs- clear breath sounds bilaterally, no rales/wheezes Heart- normal rate, regular rhythm; no murmurs Abdomen- normal bowel sounds, nondistended, soft, nontender Extremities- no pretibial edema, no calf tenderness Neuro- alert, oriented x 3; no gross focal neurologic deficits Skin- warm & dry Results & Data Results & Data Vital Signs (Past 12 Hours) Vital Signs Temp Pulse Resp BP Pulse Ox O2 Del Method 08/20/23 15:41 36.8 C 74 16 144/82 H 96 Room Air
[2023-08-20] MEDS: MELATONIN 3 MG TAB PO SCH (20:50)
[2023-08-21] MEDS: oxyCODONE HCL IR 5 MG TAB (IMMEDIATE RELEASE) PO PRN ×3 (00:30→23:22)
[2023-08-21] MEDS: ALENDRONATE SODIUM 10 MG TAB PO SCH (05:20)
[2023-08-21] MEDS: LEVOTHYROXINE SODIUM 112 MCG TABLET PO SCH (05:20)
[2023-08-21] MEDS: MICONAZOLE NITRATE POWDER 85 GM EXT PRN (05:30)
[2023-08-21 07:01] LABS: Anion Gap 7 (3-11); BUN Creatinine Ratio 27.1 (10-20); Blood Urea Nitrogen 13 mg/dl (6-23); Calcium 7.4 mg/dl (8.6-10.3); Carbon Dioxide 31 mmol/L (21-32); Chloride 101 mmol/L (98-107); Creatinine Clr Calc Pharmacy 137.3 ml/min; Est GFR (African American) 116.8 ml/min; Est GFR (Non-African American) 100.8 ml/min; Glucose 115 mg/dl (70-99(Fasting)); Magnesium 1.9 mg/dl (1.7-2.4); Sodium 139 mmol/L (136-145)
[2023-08-21] MEDS: INSULIN ASPART PER UNIT CHARGE SC SCH ×4 (08:16→20:19)
[2023-08-21] MEDS: CYANOCOBALAMIN (B-12) 500 MCG TABLET PO SCH (08:17)
[2023-08-21] MEDS: MEMANTINE HCL 10 MG TAB PO SCH ×2 (08:17→20:28)
[2023-08-21] MEDS: MAGNESIUM OXIDE 400 MG TAB PO SCH ×2 (08:17→20:28)
[2023-08-21] MEDS: MONTELUKAST SODIUM 10 MG TABLET PO SCH (08:17)
[2023-08-21] MEDS: GALANTAMINE HYDROBROMIDE 4 MG TAB PO SCH ×2 (08:17→20:28)
[2023-08-21] MEDS: POLYETHYLENE (MIRALAX) 17 GM PACK PO SCH (08:18)
[2023-08-21] MEDS: VENLAFAXINE HCL XR 75 MG CAPXR PO SCH (08:18)
[2023-08-21] MEDS: CEROVITE ADV FORMULA TAB PO SCH (08:18)
[2023-08-21] MEDS: PRIMIDONE 50 MG TAB PO SCH ×3 (08:18→20:28)
[2023-08-21] MEDS: CALCIUM 600MG + VIT D 400 IU TAB PO SCH (08:18)
[2023-08-21] MEDS: ASPIRIN 81 MG ECTAB PO SCH (08:18)
[2023-08-21] MEDS: PREGABALIN 25 MG CAP PO SCH ×2 (08:18→20:28)
[2023-08-21] MEDS: FLUTICASONE FUROATE 200MCG 14 PUFFS/INHALER INH SCH (08:19)
[2023-08-21] MEDS: METOPROLOL SUCC 25MG EXT REL TAB PO SCH (08:19)
[2023-08-21] MEDS: PANTOprazole 40 MG in SYRINGE 0 ML IV SCH ×2 (08:19→20:28)
[2023-08-21] MEDS ORDERED: amLODIPine BESYLATE 5 MG TAB PO SCH (09:00)
[2023-08-21] MEDS ORDERED: hydroCHLOROthiazide 25 MG TAB PO SCH (09:00)
[2023-08-21] MEDS: POTASSIUM CHLORIDE CRTAB 20 MEQ TABCR PO SCH ×2 (10:02→20:28)
[2023-08-21] MEDS: ENOXAPARIN INJ 40 MG/0.4 ML SYR SQ SCH ×2 (10:50→20:28)
--- NOTE | 2023-08-21 16:47 | Hospitalist Progress Note ---
Date of Service August 21, 2023 Assessment & Plan (1) Fall: Plan: Per admitting service notes with addendum 68-year-old female with past medical history significant for hyperlipidemia, type 2 diabetes, diabetic neuropathy, hypothyroidism, mild persistent asthma, hypertension, morbid obesity, early onset Alzheimer's dementia without behavioral disturbance, generalized anxiety disorder, obsessive-compulsive disorder , tremors who lives alone at home was brought in because of fall 3 days ago and not able to get up and was laying on the floor. Patient is currently alert and oriented. Patient states she was looking at the window and when she turned she fell down. Thinks she hit her head but no loss of consciousness. And she could not able to get up. Her phone was very far away. She cannot reach the phone. Seems today Police were called by family for welfare check as family not heard from her for last few days. Patient can tell her name. Knows her date of . Knows that she is in [facility]. Knows today is . Can tell the month and year. Knows the county. Knows the president. Patient says she had a headache earlier but that got resolved. She has some back pain. Has some cough and runny nose. No sore throat. No chest pain or shortness of breath. Has mild abdominal discomfort. States she is constipated. Seems wetting herself when she was on the floor. Currently hemodynamically stable. Says she has a walker but states she does not use it. Fall Ambulatory dysfunction Was laying on the floor for last 3 days not able to get up CPK levels are okay Except for hypokalemia rest of the Labs seems okay Imaging studies shows L1 compression fracture age indeterminate We will admit to medical floor IV fluids Social service to help with discharge planning 08/21 pain management PT/OT L1 compression fracture Pain control Orthospine consult: no surgery PT OT when stable Dyspepsia Trial of Maalox, Protonix CT abdomen pelvis showing colitis but patient denies diarrhea resolved Hypertension Amlodipine 5 mg p.o. daily started--> increase to 10mg add HCTZ 12.5mg daily prn Hydralazine monitor closely Hypokalemia increase k to 40 meqs BID Monitor closely Diabetes Hold metformin Insulin sliding scale We will monitor Early onset Alzheimer's dementia Seems alert and oriented currently Continue memantine and galantamine Monitor for delirium Tremors On primidone Mild persistent asthma Seems stable Continue home inhalers Generalized anxiety disorder On venlafaxine Hypothyroidism On Synthyroid DVT prophylaxis Lovenox Disposition PT/OT eval possible acute rehab vs. snf Full code Admission and Anticipated Discharge Date Admission Date: August 17, 2023 Subjective ff up for back pain, s/p fall, etc seen resting in bed, comfortable in good spirits no chest pain, dyspnea, palpitations, dizziness back pain improving no other symptoms Review of Systems Review of Systems: all noted and negative except for above Physical Exam Physical Exam: General- oriented x 3, not in distress, speaks in sentences with no effort or accessory muscle use Eyes- anicteric Neck- no JVD Lungs- clear BS BL, no rales/wheezing Heart- normal rate, regular rhythm; no murmurs Abdomen- normal bowel sounds, nondistended, soft, no tenderness Extremities- no pretibial edema, no calf tenderness Neuro- alert, oriented x 3; no gross focal neurologic deficits Skin- warm & dry Results & Data Results & Data Vital Signs (Past 12 Hours) Vital Signs Temp Pulse Resp BP BP Pulse Ox O2 Del Method 08/21/23 14:55 71 127/80 08/21/23 14:50 36.7 C 68 16 99/65 L 93 Room Air 08/21/23 14:08 36.7 C 79 16 126/81 92 Room Air 08/21/23 07:09 36.7 C 62 16 182/88 H 169/80 H 96 Room Air all noted and reviewed including below
[2023-08-21] MEDS ORDERED: ALUMINUM/MAGNESIUM SUSP 30 ML UDC PO PRN (18:27)
[2023-08-21] MEDS: MELATONIN 3 MG TAB PO SCH (20:27)
[2023-08-21] MEDS: ACETAMINOPHEN 325 MG TAB PO PRN (20:28)
[2023-08-22] MEDS: LEVOTHYROXINE SODIUM 112 MCG TABLET PO SCH (05:55)
[2023-08-22 07:47] LABS: BUN Creatinine Ratio 33.3 (10-20); Calcium 8.2 mg/dl (8.6-10.3); Creatinine Clr Calc Pharmacy 122.1 ml/min; Est GFR (African American) 112.4 ml/min; Magnesium 1.8 mg/dl (1.7-2.4); Potassium 3.7 mmol/L (3.5-5.1)
[2023-08-22] MEDS: INSULIN ASPART PER UNIT CHARGE SC SCH ×4 (08:49→22:14)
[2023-08-22] MEDS: ASPIRIN 81 MG ECTAB PO SCH (08:50)
[2023-08-22] MEDS: amLODIPine BESYLATE 5 MG TAB PO SCH (08:50)
[2023-08-22] MEDS: CALCIUM 600MG + VIT D 400 IU TAB PO SCH (08:50)
[2023-08-22] MEDS: FLUTICASONE FUROATE 200MCG 14 PUFFS/INHALER INH SCH (08:51)
[2023-08-22] MEDS: CYANOCOBALAMIN (B-12) 500 MCG TABLET PO SCH (08:51)
[2023-08-22] MEDS: GALANTAMINE HYDROBROMIDE 4 MG TAB PO SCH ×2 (08:51→22:12)
[2023-08-22] MEDS: METOPROLOL SUCC 25MG EXT REL TAB PO SCH (08:52)
[2023-08-22] MEDS: MEMANTINE HCL 10 MG TAB PO SCH ×2 (08:53→22:12)
[2023-08-22] MEDS: MAGNESIUM OXIDE 400 MG TAB PO SCH ×2 (08:53→22:12)
[2023-08-22] MEDS: MONTELUKAST SODIUM 10 MG TABLET PO SCH (08:53)
[2023-08-22] MEDS: POTASSIUM CHLORIDE CRTAB 20 MEQ TABCR PO SCH ×2 (08:54→22:13)
[2023-08-22] MEDS: CEROVITE ADV FORMULA TAB PO SCH (08:54)
[2023-08-22] MEDS: VENLAFAXINE HCL XR 75 MG CAPXR PO SCH (08:54)
[2023-08-22] MEDS: PRIMIDONE 50 MG TAB PO SCH ×3 (08:55→22:13)
[2023-08-22] MEDS: POLYETHYLENE (MIRALAX) 17 GM PACK PO SCH (09:01)
[2023-08-22] MEDS: PREGABALIN 25 MG CAP PO SCH ×2 (09:02→22:16)
[2023-08-22] MEDS: PANTOprazole 40 MG in SYRINGE 0 ML IV SCH ×2 (09:03→22:13)
[2023-08-22] MEDS: oxyCODONE HCL IR 5 MG TAB (IMMEDIATE RELEASE) PO PRN ×2 (11:23→18:12)
[2023-08-22] MEDS: ENOXAPARIN INJ 40 MG/0.4 ML SYR SQ SCH ×2 (11:23→22:14)
--- NOTE | 2023-08-22 12:57 | Hospitalist Progress Note ---
Date of Service August 22, 2023 Assessment & Plan (1) Fall: Plan: Per admitting service notes with addendum 68-year-old female with past medical history significant for hyperlipidemia, type 2 diabetes, diabetic neuropathy, hypothyroidism, mild persistent asthma, hypertension, morbid obesity, early onset Alzheimer's dementia without behavioral disturbance, generalized anxiety disorder, obsessive-compulsive disorder , tremors who lives alone at home was brought in because of fall 3 days ago and not able to get up and was laying on the floor. Patient is currently alert and oriented. Patient states she was looking at the window and when she turned she fell down. Thinks she hit her head but no loss of consciousness. And she could not able to get up. Fall Ambulatory dysfunction Was laying on the floor for 3 days [employer] CPK levels are okay Imaging studies shows L1 compression fracture age indeterminate We will admit to medical floor Social service to help with discharge planning L1 compression fracture Pain control Orthospine consult PT OT, no lifting more than 5lbs, body habitus makes bracing difficult but could be option if no improvement Dyspepsia Trial of Maalox, Protonix CT abdomen pelvis showing colitis but patient denies diarrhea afebrile Hypokalemia replaced Continue home potassium supplements Monitor closely Diabetes Hold metformin Insulin sliding scale, will reduce as bsg 94 this a.m. a1c 08/18/23 5.6 Early onset Alzheimer's dementia Seems alert and oriented currently Continue memantine and galantamine Monitor for delirium Tremors On primidone Hypertension On metoprolol succinate Amlodipine started, monitor Mild persistent asthma Seems stable Continue home inhalers Generalized anxiety disorder On venlafaxine Hypothyroidism On Synthyroid DVT prophylaxis Lovenox Disposition Medical floor, awaiting PT/OT consults for dispo, possible rehab Full code A total of 47 was spent coordinating, documenting, and providing care for this patient excluding time spent in the performance of separately billed services. This included personally viewing all current laboratories and imaging studies, medication reconciliation, outpatient chart review, and discussion with specialists. Pt was seen and examined in collaboration with Dr. Richard, please see addendum Admission and Anticipated Discharge Date Admission Date: August 17, 2023 Supervising Physician Co-Signing Physician Notes delayed entry date of service noted above Attending Addendum: care coordinated with BRENDA Kassi Klein please refer to her notes for full details, I agree with her notes patient seen and examined, records reviewed by myself as well diagnoses and plan of care as per BRENDA Kassi Richard MD Subjective Patient was seen and examined in room 377. Follow-up back pain. She states that she has lower back pain, currently a 10. Radiates around to her right side but denies any radicular symptoms to her lower extremities. She denies fever, chills, sweats, lightheadedness, dizziness, chest pain, shortness of breath, nausea, vomiting or abdominal pain. Due to back pain has been more difficult for her to ambulate. Overall good appetite. Review of Systems Review of Systems: All systems reviewed & are unremarkable except as noted in HPI & below Physical Exam Physical Exam: Gen: WD/WN, female, sitting up in bedside chair, NAD, A&O x3 HEENT: Normocephalic, atraumatic, conjunctivae moist, sclerae anicteric, mucous membranes moist. Lung: Clear to Auscultation bilaterally, no wheezes/rales/rhonchi Heart: Regular rate, regular rhythm, no murmurs, rubs, or gallops Abdomen: Soft, NT, ND +BS x 4 Extremities: No edema Skin: Warm, no rash, negative turgor. Results & Data Results & Data Vital Signs (Past 12 Hours) Vital Signs Temp Pulse Resp BP Pulse Ox O2 Del Method 08/22/23 09:11 Room Air 08/22/23 08:15 36.7 C 90 16 147/79 H 94 Room Air Laboratory Results BMP 08/22/23 06:55 Sodium 138 Potassium 3.7 Chloride 100 Carbon Dioxide 28 BUN 18 Creatinine 0.54 L Glucose 152 H Calcium 8.2 L I have independently reviewed and interpreted patient's labs including bmp, mag. Medications Administered Current Inpatient Medications Acetaminophen (Acetaminophen 325 Mg Tab) 650 mg PO Q4H PRN PRN Reason: pain/fever Stop: 09/16/23 22:21 Last Admin: 08/21/23 20:28 Dose: 650 mg Al Hydrox/Mg Hydrox/Simethicone (Aluminum/Magnesium Susp 30 Ml Udc) 30 ml PO Q6H PRN PRN Reason: Dyspepsia Stop: 09/20/23 18:26 Alendronate Sodium (Alendronate Sodium 10 Mg Tab) 10 mg PO DAILY@0630 [facility] Stop: 09/17/23 06:29 Last Admin: 08/21/23 05:20 Dose: 10 mg Amlodipine Besylate (Amlodipine Besylate 5 Mg Tab) 5 mg PO QAM [facility] Stop: 09/21/23 08:59 Last Admin: 08/22/23 08:50 Dose: 5 mg Aspirin (Aspirin 81 Mg Ectab) 81 mg PO DAILY [facility] Stop: 09/17/23 08:59 Last Admin: 08/22/23 08:50 Dose: 81 mg Calcium/Vitamin D (Calcium 600mg + Vit D 400 Iu Tab) 1 tab PO DAILY [facility] Stop: 09/17/23 08:59 Last Admin: 08/22/23 08:50 Dose: 1 tab Cyanocobalamin (Cyanocobalamin (B-12) 500 Mcg Tablet) 1,000 mcg PO DAILY [facility] Stop: 09/17/23 08:59 Last Admin: 08/22/23 08:51 Dose: 1,000 mcg Dextrose (Dextrose 50% 50 Ml Syringe) 25 - 50 ml IV UD PRN; Protocol PRN Reason: Hypoglycemia Protocol Stop: 09/16/23 22:21 Enoxaparin Sodium (Enoxaparin Inj 40 Mg/0.4 Ml Syr) 40 mg SQ Q12H [facility] Stop: 09/16/23 22:59 Last Admin: 08/22/23 11:23 Dose: 40 mg Fluticasone Furoate (Fluticasone Furoate 200mcg 14 Puffs/Inhaler) 1 puffs INH DAILY [facility] Stop: 09/17/23 08:59 Last Admin: 08/22/23 08:51 Dose: 1 puffs Galantamine Hydrobromide (Galantamine Hydrobromide 4 Mg Tab) 12 mg PO AMHS [facility] Stop: 09/17/23 08:59 Last Admin: 08/22/23 08:51 Dose: 12 mg Glucagon (Glucagon For Inj 1 Mg Vial) 1 mg SQ UD PRN; Protocol PRN Reason: Hypoglycemia Protocol Stop: 09/16/23 22:21 Glucose (Glucose 10 Tab/Tube) 4 - 8 tab PO UD PRN; Protocol PRN Reason: Hypoglycemia Treatment Stop: 09/16/23 22:21 Glucose (Glucose 40% Gel 15 Gm Tube) 15 - 30 gm PO UD PRN; Protocol PRN Reason: Hypoglycemia Protocol Stop: 09/16/23 22:21 Hydralazine HCl (Hydralazine Hcl 20 Mg/Ml Vial) 5 mg IV Q6H PRN PRN Reason: systolic bp > 160 Stop: 09/18/23 19:40 Last Admin: 08/20/23 23:19 Dose: 5 mg Hydrochlorothiazide (Hydrochlorothiazide 25 Mg Tab) 12.5 mg PO QAM [facility] Stop: 09/20/23 08:59 Last Admin: 08/21/23 10:01 Dose: 12.5 mg Promethazine HCl 12.5 mg/ (Sodium Chloride) 50.5 mls @ 202 mls/hr IV Q6H PRN PRN Reason: Nausea And Vomiting Stop: 09/17/23 12:58 Last Infusion: 08/20/23 14:05 Dose: Infused Pantoprazole Sodium 40 mg/ (Syringe) 10 mls @ 5 mls/min IV BID [facility] Stop: 09/17/23 13:44 Last Admin: 08/22/23 09:03 Dose: 5 mls/min Insulin Aspart (Insulin Aspart Per Unit Charge) 0 units SC ACHS [facility] Stop: 09/17/23 07:29 Last Admin: 08/22/23 12:41 Dose: 2 units Levothyroxine Sodium (Levothyroxine Sodium 112 Mcg Tablet) 112 mcg PO DAILYBB [facility] Stop: 09/17/23 06:29 Last Admin: 08/22/23 05:55 Dose: 112 mcg Magnesium Oxide (Magnesium Oxide 400 Mg Tab) 400 mg PO BID [facility] Stop: 09/19/23 09:29 Last Admin: 08/22/23 08:53 Dose: 400 mg Melatonin (Melatonin 3 Mg Tab) 4.5 mg PO HS [facility] Stop: 09/17/23 20:59 Last Admin: 08/21/23 20:27 Dose: 4.5 mg Memantine (Memantine Hcl 10 Mg Tab) 10 mg PO BID [facility] Stop: 09/17/23 08:59 Last Admin: 08/22/23 08:53 Dose: 10 mg Metoprolol Succinate (Metoprolol Succ 25mg Ext Rel Tab) 37.5 mg PO QAM [facility] Stop: 09/17/23 08:59 Last Admin: 08/22/23 08:52 Dose: 37.5 mg Miconazole Nitrate (Miconazole Nitrate Powder 85 Gm) 1 appln EXT PRN PRN PRN Reason: Affected Skin Folds Stop: 09/17/23 03:48 Last Admin: 08/21/23 05:30 Dose: 1 appln Miscellaneous (Carbohydrates For Hypoglycemia ) 15 - 30 gm PO UD PRN PRN Reason: Hypoglycemia Protocol Stop: 09/16/23 22:21 Montelukast Sodium (Montelukast Sodium 10 Mg Tablet) 10 mg PO DAILY [facility] Stop: 09/17/23 08:59 Last Admin: 08/22/23 08:53 Dose: 10 mg Multivitamins/Minerals (Cerovite Adv Formula Tab) 1 tab PO DAILY [facility] Stop: 09/17/23 08:59 Last Admin: 08/22/23 08:54 Dose: 1 tab Oxycodone HCl (Oxycodone Hcl Ir 5 Mg Tab (Immediate Release)) 5 mg PO Q6H PRN PRN Reason: Mod-Sev Pain (Scale 4-10) Stop: 08/31/23 22:21 Last Admin: 08/22/23 11:23 Dose: 5 mg Polyethylene Glycol (Polyethylene (Miralax) 17 Gm Pack) 17 gm PO DAILY PRN PRN Reason: Constipation Stop: 09/16/23 22:21 Polyethylene Glycol (Polyethylene (Miralax) 17 Gm Pack) 17 gm PO DAILY [facility] Stop: 09/17/23 08:59 Last Admin: 08/22/23 09:01 Dose: 17 gm Potassium Chloride (Potassium Chloride Crtab 20 Meq Tabcr) 40 meq PO BID [facility] Stop: 09/20/23 08:59 Last Admin: 08/22/23 08:54 Dose: 40 meq Pregabalin (Pregabalin 25 Mg Cap) 25 mg PO BID [facility] Stop: 09/17/23 08:59 Last Admin: 08/22/23 09:02 Dose: 25 mg Primidone (Primidone 50 Mg Tab) 50 mg PO TID [facility] Stop: 09/17/23 08:59 Last Admin: 08/22/23 08:55 Dose: 50 mg Venlafaxine HCl (Venlafaxine Hcl Xr 75 Mg Capxr) 75 mg PO DAILY [facility] Stop: 09/17/23 08:59 Last Admin: 08/22/23 08:54 Dose: 75 mg
[2023-08-22] MEDS: MELATONIN 3 MG TAB PO SCH (22:16)
[2023-08-23] MEDS: MICONAZOLE NITRATE POWDER 85 GM EXT PRN (05:43)
[2023-08-23] MEDS: LEVOTHYROXINE SODIUM 112 MCG TABLET PO SCH (05:44)
[2023-08-23] MEDS: oxyCODONE HCL IR 5 MG TAB (IMMEDIATE RELEASE) PO PRN ×3 (05:45→20:48)
[2023-08-23 08:24] LABS: BUN Creatinine Ratio 36.8 (10-20); Calcium 8.2 mg/dl (8.6-10.3); Creatinine Clr Calc Pharmacy 115.7 ml/min; Est GFR (African American) 110.4 ml/min; Est GFR (Non-African American) 95.3 ml/min; Magnesium 1.9 mg/dl (1.7-2.4); Potassium 4.7 mmol/L (3.5-5.1)
[2023-08-23] MEDS: INSULIN ASPART PER UNIT CHARGE SC SCH ×4 (08:37→20:38)
[2023-08-23] MEDS: ASPIRIN 81 MG ECTAB PO SCH (09:20)
[2023-08-23] MEDS: METOPROLOL SUCC 25MG EXT REL TAB PO SCH (09:21)
[2023-08-23] MEDS: FLUTICASONE FUROATE 200MCG 14 PUFFS/INHALER INH SCH (09:22)
[2023-08-23] MEDS: PRIMIDONE 50 MG TAB PO SCH ×3 (09:22→20:47)
[2023-08-23] MEDS: MAGNESIUM OXIDE 400 MG TAB PO SCH ×2 (09:23→20:48)
[2023-08-23] MEDS: GALANTAMINE HYDROBROMIDE 4 MG TAB PO SCH ×2 (09:23→20:47)
[2023-08-23] MEDS: MEMANTINE HCL 10 MG TAB PO SCH ×2 (09:23→20:48)
[2023-08-23] MEDS: VENLAFAXINE HCL XR 75 MG CAPXR PO SCH (09:24)
[2023-08-23] MEDS: CYANOCOBALAMIN (B-12) 500 MCG TABLET PO SCH (09:24)
[2023-08-23] MEDS: amLODIPine BESYLATE 5 MG TAB PO SCH (09:24)
[2023-08-23] MEDS: CEROVITE ADV FORMULA TAB PO SCH (09:24)
[2023-08-23] MEDS: CALCIUM 600MG + VIT D 400 IU TAB PO SCH (09:25)
[2023-08-23] MEDS: MONTELUKAST SODIUM 10 MG TABLET PO SCH (09:25)
[2023-08-23] MEDS: PREGABALIN 25 MG CAP PO SCH ×2 (09:41→20:47)
[2023-08-23] MEDS: PANTOprazole 40 MG in SYRINGE 0 ML IV SCH ×3 (09:41→20:47)
[2023-08-23] MEDS: POTASSIUM CHLORIDE CRTAB 20 MEQ TABCR PO SCH (09:42)
[2023-08-23] MEDS: POLYETHYLENE (MIRALAX) 17 GM PACK PO SCH (09:48)
[2023-08-23] MEDS: ENOXAPARIN INJ 40 MG/0.4 ML SYR SQ SCH ×2 (11:27→20:46)
--- NOTE | 2023-08-23 11:51 | Hospitalist Progress Note ---
Date of Service August 23, 2023 Assessment & Plan (1) Fall: Plan: Per admitting service notes with addendum 68-year-old female with past medical history significant for hyperlipidemia, type 2 diabetes, diabetic neuropathy, hypothyroidism, mild persistent asthma, hypertension, morbid obesity, early onset Alzheimer's dementia without behavioral disturbance, generalized anxiety disorder, obsessive-compulsive disorder , tremors who lives alone at home was brought in because of fall 3 days ago and not able to get up and was laying on the floor. Patient is currently alert and oriented. Patient states she was looking at the window and when she turned she fell down. Thinks she hit her head but no loss of consciousness. And she could not able to get up. Fall Ambulatory dysfunction Was laying on the floor for 3 days [employer] CPK levels are okay Imaging studies shows L1 compression fracture age indeterminate We will admit to medical floor Social service to help with discharge planning L1 compression fracture Pain control Orthospine consult PT OT, no lifting more than 5lbs, body habitus makes bracing difficult but could be option if no improvement Dyspepsia Trial of Maalox, Protonix CT abdomen pelvis showing colitis but patient denies diarrhea afebrile Hypokalemia replaced K now 4.7, will reduced to 20 meq daily Monitor closely Diabetes Hold metformin Insulin sliding scale, a1c 08/18/23 5.6 Early onset Alzheimer's dementia Seems alert and oriented currently Continue memantine and galantamine Monitor for delirium Tremors On primidone Hypertension On metoprolol succinate Amlodipine started, monitor bp improving Mild persistent asthma Seems stable Continue home inhalers Generalized anxiety disorder On venlafaxine Hypothyroidism On Synthyroid DVT prophylaxis Lovenox Disposition Medical floor, PT/OT recommend rehab, referrals sent Full code A total of 45 was spent coordinating, documenting, and providing care for this patient excluding time spent in the performance of separately billed services. This included personally viewing all current laboratories and imaging studies, medication reconciliation, outpatient chart review, and discussion with specialists. Pt was seen and examined in collaboration with Dr. Santos, please see addendum Admission and Anticipated Discharge Date Admission Date: August 17, 2023 Supervising Physician Co-Signing Physician Notes Attending addendum: The patient was seen and examined in medical floor She has been complaining of some epigastric discomfort Denies any significant back pain On examination Sitting on a chair without any acute distress Hemodynamically stable Chest-clear to auscultate bilaterally Heart-S1-S2, regular Abdomen-mildly tender epigastrium, bowel sound present Extremities-1+ edema bilaterally Her her labs, medications and imaging studies reviewed Fall with ambulatory dysfunction and has L1 compression fracture Remains medically stable with current medication Agree with assessment and plan as outlined above by Mona Santos Subjective Patient was seen and examined in room 377. Follow-up back pain. She states that she has lower back pain, currently a 10. Radiates around to her right side but denies any radicular symptoms to her lower extremities. She denies fever, chills, sweats, lightheadedness, dizziness, chest pain, shortness of breath, nausea, vomiting or abdominal pain. Due to back pain has been more difficult for her to ambulate. Overall good appetite. Physical Exam Physical Exam: Gen: WD/WN, female, sitting up in bedside chair, NAD, A&O x3 HEENT: Normocephalic, atraumatic, conjunctivae moist, sclerae anicteric, mucous membranes moist. Lung: Clear to Auscultation bilaterally, no wheezes/rales/rhonchi Heart: Regular rate, regular rhythm, no murmurs, rubs, or gallops Abdomen: Soft, NT, ND +BS x 4 Extremities: No edema Skin: Warm, no rash, negative turgor. Results & Data Results & Data Vital Signs (Past 12 Hours) Vital Signs Temp Pulse Resp BP Pulse Ox O2 Del Method 08/23/23 09:20 78 134/79 08/23/23 08:05 37.3 C 79 16 163/93 H 94 Room Air Laboratory Results BMP 08/23/23 07:29 Sodium 138 Potassium 4.7 D Chloride 103 Carbon Dioxide 28 BUN 21 Creatinine 0.57 L Glucose 123 H Calcium 8.2 L I have independently reviewed and interpreted patient's labs including CBC, bmp, mag Medications Administered Current Inpatient Medications Acetaminophen (Acetaminophen 325 Mg Tab) 650 mg PO Q4H PRN PRN Reason: pain/fever Stop: 09/16/23 22:21 Last Admin: 08/21/23 20:28 Dose: 650 mg Al Hydrox/Mg Hydrox/Simethicone (Aluminum/Magnesium Susp 30 Ml Udc) 30 ml PO Q6H PRN PRN Reason: Dyspepsia Stop: 09/20/23 18:26 Alendronate Sodium (Alendronate Sodium 10 Mg Tab) 10 mg PO DAILY@0630 [facility] Stop: 09/17/23 06:29 Last Admin: 08/21/23 05:20 Dose: 10 mg Amlodipine Besylate (Amlodipine Besylate 5 Mg Tab) 5 mg PO QAM [facility] Stop: 09/21/23 08:59 Last Admin: 08/23/23 09:24 Dose: 5 mg Aspirin (Aspirin 81 Mg Ectab) 81 mg PO DAILY [facility] Stop: 09/17/23 08:59 Last Admin: 08/23/23 09:20 Dose: 81 mg Calcium/Vitamin D (Calcium 600mg + Vit D 400 Iu Tab) 1 tab PO DAILY [facility] Stop: 09/17/23 08:59 Last Admin: 08/23/23 09:25 Dose: 1 tab Cyanocobalamin (Cyanocobalamin (B-12) 500 Mcg Tablet) 1,000 mcg PO DAILY [facility] Stop: 09/17/23 08:59 Last Admin: 08/23/23 09:24 Dose: 1,000 mcg Dextrose (Dextrose 50% 50 Ml Syringe) 25 - 50 ml IV UD PRN; Protocol PRN Reason: Hypoglycemia Protocol Stop: 09/16/23 22:21 Enoxaparin Sodium (Enoxaparin Inj 40 Mg/0.4 Ml Syr) 40 mg SQ Q12H [facility] Stop: 09/16/23 22:59 Last Admin: 08/23/23 11:27 Dose: 40 mg Fluticasone Furoate (Fluticasone Furoate 200mcg 14 Puffs/Inhaler) 1 puffs INH DAILY [facility] Stop: 09/17/23 08:59 Last Admin: 08/23/23 09:22 Dose: 1 puffs Galantamine Hydrobromide (Galantamine Hydrobromide 4 Mg Tab) 12 mg PO AMHS [facility] Stop: 09/17/23 08:59 Last Admin: 08/23/23 09:23 Dose: 12 mg Glucagon (Glucagon For Inj 1 Mg Vial) 1 mg SQ UD PRN; Protocol PRN Reason: Hypoglycemia Protocol Stop: 09/16/23 22:21 Glucose (Glucose 10 Tab/Tube) 4 - 8 tab PO UD PRN; Protocol PRN Reason: Hypoglycemia Treatment Stop: 09/16/23 22:21 Glucose (Glucose 40% Gel 15 Gm Tube) 15 - 30 gm PO UD PRN; Protocol PRN Reason: Hypoglycemia Protocol Stop: 09/16/23 22:21 Hydralazine HCl (Hydralazine Hcl 20 Mg/Ml Vial) 5 mg IV Q6H PRN PRN Reason: systolic bp > 160 Stop: 09/18/23 19:40 Last Admin: 08/20/23 23:19 Dose: 5 mg Hydrochlorothiazide (Hydrochlorothiazide 25 Mg Tab) 12.5 mg PO QAM [facility] Stop: 09/20/23 08:59 Last Admin: 08/21/23 10:01 Dose: 12.5 mg Promethazine HCl 12.5 mg/ (Sodium Chloride) 50.5 mls @ 202 mls/hr IV Q6H PRN PRN Reason: Nausea And Vomiting Stop: 09/17/23 12:58 Last Infusion: 08/20/23 14:05 Dose: Infused Pantoprazole Sodium 40 mg/ (Syringe) 10 mls @ 5 mls/min IV BID [facility] Stop: 09/17/23 13:44 Last Admin: 08/23/23 10:17 Dose: 5 mls/min Insulin Aspart (Insulin Aspart Per Unit Charge) 0 units SC ACHS [facility] Stop: 09/17/23 07:29 Last Admin: 08/23/23 08:37 Dose: Not Given Levothyroxine Sodium (Levothyroxine Sodium 112 Mcg Tablet) 112 mcg PO DAILYBB [facility] Stop: 09/17/23 06:29 Last Admin: 08/23/23 05:44 Dose: 112 mcg Magnesium Oxide (Magnesium Oxide 400 Mg Tab) 400 mg PO BID [facility] Stop: 09/19/23 09:29 Last Admin: 08/23/23 09:23 Dose: 400 mg Melatonin (Melatonin 3 Mg Tab) 4.5 mg PO HS [facility] Stop: 09/17/23 20:59 Last Admin: 08/22/23 22:16 Dose: 4.5 mg Memantine (Memantine Hcl 10 Mg Tab) 10 mg PO BID [facility] Stop: 09/17/23 08:59 Last Admin: 08/23/23 09:23 Dose: 10 mg Metoprolol Succinate (Metoprolol Succ 25mg Ext Rel Tab) 37.5 mg PO QAM [facility] Stop: 09/17/23 08:59 Last Admin: 08/23/23 09:21 Dose: 37.5 mg Miconazole Nitrate (Miconazole Nitrate Powder 85 Gm) 1 appln EXT PRN PRN PRN Reason: Affected Skin Folds Stop: 09/17/23 03:48 Last Admin: 08/23/23 05:43 Dose: 1 appln Miscellaneous (Carbohydrates For Hypoglycemia ) 15 - 30 gm PO UD PRN PRN Reason: Hypoglycemia Protocol Stop: 09/16/23 22:21 Montelukast Sodium (Montelukast Sodium 10 Mg Tablet) 10 mg PO DAILY [facility] Stop: 09/17/23 08:59 Last Admin: 08/23/23 09:25 Dose: 10 mg Multivitamins/Minerals (Cerovite Adv Formula Tab) 1 tab PO DAILY [facility] Stop: 09/17/23 08:59 Last Admin: 08/23/23 09:24 Dose: 1 tab Oxycodone HCl (Oxycodone Hcl Ir 5 Mg Tab (Immediate Release)) 5 mg PO Q6H PRN PRN Reason: Mod-Sev Pain (Scale 4-10) Stop: 08/31/23 22:21 Last Admin: 08/23/23 05:45 Dose: 5 mg Polyethylene Glycol (Polyethylene (Miralax) 17 Gm Pack) 17 gm PO DAILY PRN PRN Reason: Constipation Stop: 09/16/23 22:21 Polyethylene Glycol (Polyethylene (Miralax) 17 Gm Pack) 17 gm PO DAILY [facility] Stop: 09/17/23 08:59 Last Admin: 08/23/23 09:48 Dose: 17 gm Potassium Chloride (Potassium Chloride Crtab 20 Meq Tabcr) 40 meq PO BID [facility] Stop: 09/20/23 08:59 Last Admin: 08/23/23 09:42 Dose: Not Given Pregabalin (Pregabalin 25 Mg Cap) 25 mg PO BID [facility] Stop: 09/17/23 08:59 Last Admin: 08/23/23 09:41 Dose: 25 mg Primidone (Primidone 50 Mg Tab) 50 mg PO TID [facility] Stop: 09/17/23 08:59 Last Admin: 08/23/23 09:22 Dose: 50 mg Venlafaxine HCl (Venlafaxine Hcl Xr 75 Mg Capxr) 75 mg PO DAILY [facility] Stop: 09/17/23 08:59 Last Admin: 08/23/23 09:24 Dose: 75 mg
[2023-08-23 18:48] LABS: Appearance Urine Turbid (Clear); Bacteria Urine Automated 4+ (Negative); Blood Urine Trace (Negative); Color Urine Dark Yellow; Epithelial Cell Urine Auto >30 /lpf (0-5); Glucose Urine UA Negative (Negative); Ketones Urine Trace (Negative); Leukocyte Esterase Urine 2+ (Negative); Nitrite Urine Positive (Negative); Protein Urine Trace (Negative); RBC Urine Automated 0-4 /hpf (0-4); Specific Gravity Urine 1.027 (1.000-1.030); Urobilinogen Urine Negative (Negative); WBC Urine Automated >30 /hpf (0-5)
[2023-08-23 18:51] LABS: Bilirubin Urine 1+ (Negative)
[2023-08-23 19:08] LABS: Cast Urine Automated 0 /lpf (0-5)
[2023-08-23] MEDS: MELATONIN 3 MG TAB PO SCH (20:48)
[2023-08-24] MEDS: LEVOTHYROXINE SODIUM 112 MCG TABLET PO SCH (04:59)
[2023-08-24 08:30] LABS: Calcium 8.9 mg/dl (8.6-10.3); Potassium 4.1 mmol/L (3.5-5.1)
[2023-08-24 08:36] LABS: BUN Creatinine Ratio 39.3 (10-20); Creatinine Clr Calc Pharmacy 117.7 ml/min; Est GFR (Non-African American) 95.8 ml/min
[2023-08-24] MEDS: INSULIN ASPART PER UNIT CHARGE SC SCH ×4 (08:48→22:14)
[2023-08-24] MEDS: MAGNESIUM OXIDE 400 MG TAB PO SCH ×2 (09:30→22:13)
[2023-08-24] MEDS: MEMANTINE HCL 10 MG TAB PO SCH ×2 (09:30→22:13)
[2023-08-24] MEDS: PRIMIDONE 50 MG TAB PO SCH ×3 (09:31→22:13)
[2023-08-24] MEDS: CALCIUM 600MG + VIT D 400 IU TAB PO SCH (09:31)
[2023-08-24] MEDS: VENLAFAXINE HCL XR 75 MG CAPXR PO SCH (09:31)
[2023-08-24] MEDS: MONTELUKAST SODIUM 10 MG TABLET PO SCH (09:31)
[2023-08-24] MEDS: amLODIPine BESYLATE 5 MG TAB PO SCH (09:32)
[2023-08-24] MEDS: ASPIRIN 81 MG ECTAB PO SCH (09:32)
[2023-08-24] MEDS: CYANOCOBALAMIN (B-12) 500 MCG TABLET PO SCH (09:32)
[2023-08-24] MEDS: CEROVITE ADV FORMULA TAB PO SCH (09:32)
[2023-08-24] MEDS: METOPROLOL SUCC 25MG EXT REL TAB PO SCH (09:33)
[2023-08-24] MEDS: GALANTAMINE HYDROBROMIDE 4 MG TAB PO SCH ×2 (09:34→22:13)
[2023-08-24] MEDS: FLUTICASONE FUROATE 200MCG 14 PUFFS/INHALER INH SCH (09:35)
[2023-08-24] MEDS: POLYETHYLENE (MIRALAX) 17 GM PACK PO SCH (09:42)
[2023-08-24] MEDS: POTASSIUM CHLORIDE CRTAB 20 MEQ TABCR PO SCH (09:42)
[2023-08-24] MEDS: PREGABALIN 25 MG CAP PO SCH ×2 (09:42→22:13)
[2023-08-24] MEDS: PANTOprazole 40 MG in SYRINGE 0 ML IV SCH ×2 (09:45→22:12)
[2023-08-24] MEDS: cefTRIAXone SODIUM 2,000 MG in DEXTROSE 5 % MINI-B 50 ML IV SCH (10:36)
[2023-08-24] MEDS: ENOXAPARIN INJ 40 MG/0.4 ML SYR SQ SCH ×2 (10:40→22:12)
[2023-08-24] MEDS ORDERED: bisacodyL 10 MG SUPP PR STA (12:07)
--- NOTE | 2023-08-24 16:25 | Hospitalist Progress Note ---
Date of Service August 24, 2023 Assessment & Plan (1) Fall: Plan: Per admitting service notes with addendum 68-year-old female with past medical history significant for hyperlipidemia, type 2 diabetes, diabetic neuropathy, hypothyroidism, mild persistent asthma, hypertension, morbid obesity, early onset Alzheimer's dementia without behavioral disturbance, generalized anxiety disorder, obsessive-compulsive disorder , tremors who lives alone at home was brought in because of fall 3 days ago and not able to get up and was laying on the floor. Patient is currently alert and oriented. Patient states she was looking at the window and when she turned she fell down. Thinks she hit her head but no loss of consciousness. And she could not able to get up. Fall Ambulatory dysfunction Was laying on the floor for 3 days [employer] CPK levels are okay Imaging studies shows L1 compression fracture age indeterminate Admitted to medical floor Social service to help with discharge planning L1 compression fracture Pain control Orthospine consult PT OT, no lifting more than 5lbs, body habitus makes bracing difficult but could be option if no improvement Uncomplicated UTI Urinary symptoms, UA grossly abnormal Prelim urine culture growing gram neg bacilli Started on empiric Rocephin today Dyspepsia Trial of Maalox, Protonix CT abdomen pelvis showing colitis but patient denies diarrhea afebrile Hypokalemia replaced K now 4.7, will reduced to 20 meq daily Monitor closely Diabetes Hold metformin Insulin sliding scale, a1c 08/18/23 5.6 Early onset Alzheimer's dementia Seems alert and oriented currently Continue memantine and galantamine Monitor for delirium Tremors On primidone Hypertension On metoprolol succinate Amlodipine started, monitor BP improving Mild persistent asthma Seems stable Continue home inhalers Generalized anxiety disorder On venlafaxine Hypothyroidism On Synthyroid DVT prophylaxis Lovenox Disposition Medical floor, PT/OT recommend rehab, referrals sent Pt was seen and examined in collaboration with Dr. Santos, please see addendum Admission and Anticipated Discharge Date Admission Date: August 17, 2023 Supervising Physician Co-Signing Physician Notes Attending addendum: The patient was seen and examined in medical floor Denies any more abdominal discomfort and/or pain but bowel is not moved Denies any significant back pain On examination Sitting on a chair without any acute distress Hemodynamically stable Chest-clear to auscultate bilaterally Heart-S1-S2, regular Abdomen-mildly tender epigastrium, bowel sound present Extremities-1+ edema bilaterally Her her labs, medications and imaging studies reviewed Fall with ambulatory dysfunction and has L1 compression fracture Remains medically stable with current medication Will give Dulcolax suppository and if there is no bowel movement will try for Fleet enema Discussed with the daughter in detail Agree with assessment and plan as outlined above by Dipti Santos Subjective Patient was seen and examined in room 377 in follow-up for back pain and generalized weakness. Back pain slightly improved, sitting upright planning to work with OT. Denies fever, chills, sweats, lightheadedness, dizziness, chest pain, shortness of breath, nausea, vomiting or abdominal pain. Due to unchanged back pain, it has been more difficult for her to ambulate. Review of Systems Review of Systems: At least ten systems reviewed and negative except as noted in the HPI. Physical Exam Physical Exam: Gen: WD/WN, female, sitting up in bedside chair, NAD, A&O x3 HEENT: Normocephalic, atraumatic, conjunctivae moist, sclerae anicteric, mucous membranes moist Lung: Clear to Auscultation bilaterally, no wheezes/rales/rhonchi Heart: Regular rate, regular rhythm, no murmurs, rubs, or gallops Abdomen: Soft, NT, ND +BS x 4 Extremities: No edema Skin: Warm, no rash Results & Data Results & Data Vital Signs (Past 12 Hours) Vital Signs Temp Pulse Resp BP Pulse Ox O2 Del Method 08/24/23 15:58 36.6 C 80 16 153/84 H 93 Room Air 08/24/23 09:28 81 142/88 H 08/24/23 07:33 36.6 C 78 16 158/91 H 94 Room Air Laboratory Results [facility] 08/24/23 07:20 Sodium 136 Potassium 4.1 Chloride 100 Carbon Dioxide 28 BUN 22 Creatinine 0.56 L Glucose 125 H Calcium 8.9 Urine 08/23/23 Range/Units 18:15 Urine Color Dark Yellow Urine Appearance Turbid A (Clear) Urine pH 5.0 (4.5-7.5) Ur Specific Lisman 1.027 (1.000-1.030) Urine Protein Trace H (Negative) Urine Glucose (UA) Negative (Negative) Diagnostic Findings Abdomen/Pelvis CT 08/17/23 17:53 Exam(s): CT ABDOMEN + PELVIS Without Contrast EXAM: CT Abdomen and Pelvis Without Intravenous Contrast CLINICAL HISTORY: Reason for exam: fall, low back pain. TECHNIQUE: Axial computed tomography images of the abdomen and pelvis without intravenous contrast. CTDI is 27.62 mGy and DLP is 1333.87 mGy-cm. Automated exposure control was utilized for the study. A dose lowering technique was utilized adhering to the principles of ALARA. COMPARISON: CT abdomen/pelvis on 11/10/2022 FINDINGS: Lung bases: Unremarkable. No mass. No consolidation. ABDOMEN: Liver: Hepatomegaly. Gallbladder and bile ducts: Prior cholecystectomy. No ductal dilation. Pancreas: Unremarkable. No ductal dilation. Spleen: Unremarkable. No splenomegaly. Adrenals: Nonspecific left adrenal nodule. Kidneys and ureters: Unremarkable. No hydronephrosis or stone. Stomach and bowel: Mild prominence of the linares of the colon may be secondary to underdistention. Colitis is not exited. Evaluation of the stomach is limited by underdistention. PELVIS: Appendix: Normal appendix. Bladder: Unremarkable. No stones. Reproductive: Unremarkable as visualized. ABDOMEN and PELVIS: Intraperitoneal space: Unremarkable. No free air. No significant fluid collection. Bones/joints: Age-indeterminate severe endplate compression deformity of L1 with small amount of gas underlying the fracture. Degenerative changes of the spine. Probable small bone islands in the pelvic bones. No dislocation. Soft tissues: Injection granulomas in the gluteal soft tissues. Small fat-containing umbilical hernia. Vasculature: Phleboliths in the pelvis. Atherosclerotic changes of the vasculature. No aortic aneurysm. Lymph nodes: Unremarkable. No enlarged lymph nodes. IMPRESSION: 1. Mild prominence of the linares of the colon may be secondary to underdistention. Colitis is not exited. 2. Age-indeterminate severe endplate compression deformity of L1 with small amount of gas underlying the fracture. 3. Nonspecific left adrenal nodule. Electronically signed by: Noble Triplett M.D. 08/17/23 20:[address] 08/17/23 17:53 Exam(s): CT C SPINE EXAM: CT Cervical Spine Without Intravenous Contrast CLINICAL HISTORY: Reason for exam: fall. TECHNIQUE: Axial computed tomography images of the cervical spine without intravenous contrast. CTDI is 26.53 mGy and DLP is 560.8 mGy-cm. Automated exposure control was utilized for the study. A dose lowering technique was utilized adhering to the principles of ALARA. COMPARISON: None FINDINGS: Bones: Normal alignment. No acute fracture or bony lesion. Disc spaces: No subluxation. Degenerative changes of the spine. Soft tissues: Normal. Other: Atherosclerotic changes of the vasculature. IMPRESSION: No acute traumatic abnormality. Electronically signed by: Noble Triplett M.D. 08/17/23 20:[address] 08/17/23 17:53 Exam(s): CT CHEST Without Contrast EXAM: CT Chest Without Intravenous Contrast CLINICAL HISTORY: Reason for exam: fall. TECHNIQUE: Axial computed tomography images of the chest without intravenous contrast. CTDI is 27.94 mGy and DLP is 888.35 mGy-cm. Automated exposure control was utilized for the study. A dose lowering technique was utilized adhering to the principles of ALARA. COMPARISON: None FINDINGS: Lungs: Unremarkable. No mass. No consolidation. Pleural space: Unremarkable. No pneumothorax. No significant effusion. Heart: Mild cardiomegaly. Coronary artery calcifications. No significant pericardial effusion. Bones/joints: Degenerative changes of the spine. Probably chronic superior endplate compression deformity partially seen in the L1 vertebral body. No dislocation. Soft tissues: Nonspecific 1.5 cm nodule in the right breast. 8 mm nodule in the left breast. Vasculature: Atherosclerotic changes in the aorta. Ectasia of the ascending thoracic aorta measuring 4.4 cm in diameter. No thoracic aortic aneurysm. Lymph nodes: Nonspecific probable small right cardiophrenic lymph node. Gallbladder and bile ducts: Cholecystectomy change. Adrenals: Nonspecific left adrenal nodule. IMPRESSION: No acute findings in the chest. Electronically signed by: Noble Triplett M.D. 08/17/23 20:[address] 08/17/23 17:53 Exam(s): CT HEAD Without Contrast EXAM: CT Head Without Intravenous Contrast CLINICAL HISTORY: Reason for exam: fall, headache. TECHNIQUE: Axial computed tomography images of the head/brain without intravenous contrast. CTDI is 37.42 mGy and DLP is 624.41 mGy-cm. Automated exposure control was utilized for the study. A dose lowering technique was utilized adhering to the principles of ALARA. COMPARISON: None FINDINGS: Brain: No acute infarct or hemorrhage identified. No extra-axial fluid collection. No mass effect or midline shift. Scattered areas of hypoattenuation in the supratentorial white matter likely represent chronic small vessel ischemic changes. Ventricles and sulci: Prominence of the ventricles and sulci is likely secondary to cerebral volume loss. Bones: Hyperostosis frontalis interna. No bony lesion or acute fracture. Subcutaneous tissues: Normal. Sinuses: Normal. No air-fluid levels or mucosal thickening. Mastoid air cells: Normal. Orbits: Bilateral lens implants. Other: Atherosclerotic calcifications in the intracranial vasculature. IMPRESSION: 1. No acute intracranial abnormality. 2. Chronic small vessel ischemic changes and cerebral volume loss. Electronically signed by: Noble Triplett M.D. 08/17/23 20:[address] 08/18/23 06:14 CT lumbar spine wo con HISTORY: 68 years-old Female lumbar fracture acute low back pain COMPARISON: CT abdomen and pelvis 08/17/2023, 11/10/2022 TECHNIQUE: Multiple axial CT images of the lumbar spine were obtained without the use of IV contrast. A dose lowering technique was used consistent with the principals of ALARA. FINDINGS: Mild multilevel and vertebral disc space narrowing with mild to moderate spondylitic spurring. There is mostly moderate multilevel facet arthrosis, however facet arthropathy at L4-L5 and L5-S1 is severe. 25% superior endplate compression deformity at L1 with fracture line extending into both the anterior and posterior endplates redemonstrated. Small amount of subcortical gas is noted within the superior aspect of the L1 vertebral body. Mild paravertebral edema again noted. 2 mm retropulsion without significant central canal stenosis. No additional acute fracture or subluxation. No high-grade central canal stenosis identified. Multilevel neural foraminal narrowing is mostly mild. IMPRESSION: 1. 25% superior endplate compression deformity of L1 with associated paravertebral edema is again noted which appears acute. There is 2 mm retropulsion without significant central canal stenosis. 2. No additional acute fracture or subluxation identified. ACT 112: Negative or not required by law. The above report was generated using voice recognition software. It may contain grammatical, syntax or spelling errors. Electronically signed by: Se Rockwell M.D. 08/18/2023 8:46 AM
[2023-08-24] MEDS: oxyCODONE HCL IR 5 MG TAB (IMMEDIATE RELEASE) PO PRN (18:47)
[2023-08-24] MEDS: MELATONIN 3 MG TAB PO SCH (22:13)
[2023-08-25] MEDS: LEVOTHYROXINE SODIUM 112 MCG TABLET PO SCH (05:51)
[2023-08-25 07:42] LABS: Hematocrit (blood only) 40.7 % (37.0-47.0); Mean Corpuscular Hemoglobin 31.6 pg (25.0-34.0); Mean Corpuscular Hgb Conc 31.9 g/dL (32.0-36.0); Mean Platelet Volume 10.5 fL (9.4-12.4); Platelet Count 238 K/uL (130-400); RDW Coefficient of Variation 13.4 % (11.5-14.5); RDW Standard Deviation 48.7 fL (36.4-46.3); Red Blood Count 4.11 M/uL (4.20-5.40); White Blood Count 8.38 K/ul (4.8-10.8)
[2023-08-25] MEDS: oxyCODONE HCL IR 5 MG TAB (IMMEDIATE RELEASE) PO PRN (07:43)
[2023-08-25] MEDS: INSULIN ASPART PER UNIT CHARGE SC SCH ×2 (07:48→12:04)
[2023-08-25 08:08] LABS: BUN Creatinine Ratio 45.2 (10-20); Calcium 8.9 mg/dl (8.6-10.3); Creatinine Clr Calc Pharmacy 106.3 ml/min; Est GFR (African American) 107.4 ml/min; Est GFR (Non-African American) 92.7 ml/min
[2023-08-25] MEDS: FLUTICASONE FUROATE 200MCG 14 PUFFS/INHALER INH SCH (09:08)
[2023-08-25] MEDS: PANTOprazole 40 MG in SYRINGE 0 ML IV SCH (09:09)
[2023-08-25] MEDS ORDERED: SOD PHOSPHATE/SOD BIPHOSPHATE ENEMA 132 ML BTL PR STA (09:09)
[2023-08-25] MEDS: cefTRIAXone SODIUM 2,000 MG in DEXTROSE 5 % MINI-B 50 ML IV SCH (09:09)
[2023-08-25] MEDS: MEMANTINE HCL 10 MG TAB PO SCH (09:10)
[2023-08-25] MEDS: MAGNESIUM OXIDE 400 MG TAB PO SCH (09:10)
[2023-08-25] MEDS: PRIMIDONE 50 MG TAB PO SCH ×2 (09:10→14:22)
[2023-08-25] MEDS: GALANTAMINE HYDROBROMIDE 4 MG TAB PO SCH (09:10)
[2023-08-25] MEDS: CYANOCOBALAMIN (B-12) 500 MCG TABLET PO SCH (09:11)
[2023-08-25] MEDS: POTASSIUM CHLORIDE CRTAB 20 MEQ TABCR PO SCH (09:11)
[2023-08-25] MEDS: VENLAFAXINE HCL XR 75 MG CAPXR PO SCH (09:11)
[2023-08-25] MEDS: CALCIUM 600MG + VIT D 400 IU TAB PO SCH (09:11)
[2023-08-25] MEDS: ASPIRIN 81 MG ECTAB PO SCH (09:11)
[2023-08-25] MEDS: METOPROLOL SUCC 25MG EXT REL TAB PO SCH (09:12)
[2023-08-25] MEDS: amLODIPine BESYLATE 5 MG TAB PO SCH (09:12)
[2023-08-25] MEDS: CEROVITE ADV FORMULA TAB PO SCH (09:12)
[2023-08-25] MEDS: MONTELUKAST SODIUM 10 MG TABLET PO SCH (09:12)
[2023-08-25] MEDS: PREGABALIN 25 MG CAP PO SCH (09:17)
[2023-08-25] MEDS: POLYETHYLENE (MIRALAX) 17 GM PACK PO SCH (09:17)
[2023-08-25] MEDS: ENOXAPARIN INJ 40 MG/0.4 ML SYR SQ SCH (11:43)
--- NOTE | 2023-08-25 14:33 | Discharge Summary ---
Discharge Summary Date of Service August 25, 2023 Notes For Next Care Provider Fall, UTI, Medication Changes From Visit Cefdinir 300mg by mouth twice daily x 5 days for UTI. Amlodipine 5mg daily for blood pressure. Pantoprazole 40mg daily for dyspepsia. Admission HPI Per Admitting Provider 68-year-old female with past medical history significant for hyperlipidemia, type 2 diabetes, diabetic neuropathy, hypothyroidism, mild persistent asthma, hypertension, morbid obesity, early onset Alzheimer's dementia without behavioral disturbance, generalized anxiety disorder, obsessive-compulsive disorder , tremors who lives alone at home was brought in because of fall 3 days ago and not able to get up and was laying on the floor. Patient is currently al ert and oriented. Patient states she was looking at the window and when she turned she fell down. Thinks she hit her head but no loss of consciousness. And she could not able to get up. Her phone was very far away. She cannot reach the phone. Seems today Police were called by family for welfare check as family not heard from her for last few days. Patient can tell her name. Knows her date of . Knows that she is in [facility]. Knows today is . Can tell the month and year. Knows the [facility]. Knows the president. Patient says she had a headache earlier but that got resolved. She has some back pain. Has some cough and runny nose. No sore throat. No chest pain or shortness of breath. Has mild abdominal discomfort. States she is constipated. Seems wetting herself when she was on the floor. Currently hemodynamically stable. Says she has a walker but states she does not use it. Past medical history. As mentioned above Past surgical history. Bilateral cataracts. Cholecystectomy Social history. Lives alone. No smoking. No alcohol use. No drug use. Family history. No family history on file. Admission Exam Per Admitting Provider General- Not in distress Head- atraumatic Eyes- PERRL. ENT- oropharynx clear Neck- supple, no JVD. Lungs- clear to auscultation no wheezing or crackles. Heart- regular rhythm; no murmur, no gallop, Abdomen- normal bowel sounds, soft, nontender, no distension Extremities- no pretibial edema, no erythema seen. Neuro- alert, oriented x 3; Tremors present.PERRL, no facial palsy; no dysarthria; obeys commands ,moves extremities. Principal Dx & Hospital Course #1 = Principal Diagnosis (1) Fall: (2) Closed compression fracture of body of L1 vertebra: (3) Ambulatory dysfunction: (4) Alzheimer's disease, unspecified: (5) Depression with anxiety: (6) Hypertension: (7) UTI (urinary tract infection), uncomplicated: Plan This is a 68-year-old female with past medical history significant for hyperlipidemia, type 2 diabetes, diabetic neuropathy, hypothyroidism, mild persistent asthma, hypertension, morbid obesity, early onset Alzheimer's dementia without behavioral disturbance, generalized anxiety disorder, obsessive-compulsive disorder , tremors who lives alone at home was brought in because of fall 3 days ago and not able to get up and was laying on the floor. Patient states she was looking at the window and when she turned she fell down. CPK levels okay on admission. Imaging studies shows L1 compression fracture age indeterminate. Evaluated by orthospine service who recommend no lifting more t kirk 5 pounds, body habitus makes bracing difficult but could be an option if no improvement. PT/OT recommending discharge to rehab. UA obtained that was grossly abnormal with urine culture growing pansensitive E. coli. Continue cefdinir on discharge for total of 7-day antibiotic treatment. Continue Protonix for trial of dyspepsia with improved symptoms. CT abdomen pelvis showing colitis but patient denies any diarrhea. Blood pressure was elevated on admission and patient was started on 5 mg amlodipine with improvement of blood pressure. Continue on discharge. Patient comfortable and hemodynamically stable at time of discharge to [facility] rehab. Discharge Exam Gen: WD/WN, female, sitting up in bedside chair, NAD, A&O x3 HEENT: Normocephalic, atraumatic, conjunctivae moist, sclerae anicteric, mucous membranes moist Lung: Clear to Auscultation bilaterally, no wheezes/rales/rhonchi Heart: Regular rate, regular rhythm, no murmurs, rubs, or gallops Abdomen: Soft, NT, ND +BS x 4 Extremities: No edema Skin: Warm, no rash Updated Medication List Medication Instructions Recorded Confirmed Type fluticasone propionate 220 1 puff inhalation UD 05/08/19 08/17/23 History mcg/actuation HFA aerosol inhaler levothyroxine 112 mcg tablet 112 mcg PO DAILY 05/08/19 08/17/23 History montelukast 10 mg tablet 10 mg PO DAILY 05/08/19 08/17/23 History multivitamin (Daily Multi-Vitamin 1 tab PO DAILY 05/08/19 08/17/23 History tablet) potassium chloride 10 mEq 30 meq PO DAILY 05/08/19 08/17/23 History tablet,extended release metformin 500 mg tablet 500 mg PO BIDM 09/24/19 08/17/23 History mecobalamin (vitamin B12) 1,000 1,000 mcg sublingual DAILY #30 tabs 02/21/22 08/17/23 Rx mcg disintegrating tablet,sublingual memantine 10 mg tablet 10 mg PO BID 90 days #180 tabs 09/16/22 08/17/23 Rx pregabalin 25 mg capsule 25 mg PO BID 09/20/22 08/17/23 History alendronate 10 mg tablet 10 mg PO QAM 08/17/23 08/17/23 History aspirin 81 mg tablet,delayed 81 mg PO DAILY 08/17/23 08/17/23 History release calcium carbonate 600 mg-vitamin 1 tab PO DAILY 08/17/23 08/17/23 History D3 20 mcg (800 unit) chewable tablet (Caltrate 600 plus D) galantamine 12 mg tablet 12 mg PO AMHS 08/17/23 08/17/23 History melatonin 5 mg tablet 5 mg PO HS 08/17/23 08/17/23 History metoprolol succinate 25 mg 37.5 mg PO QAM 08/17/23 08/17/23 History tablet,extended release 24 hr polyethylene glycol 3350 17 gram 17 g PO DAILY 08/17/23 08/17/23 History oral powder packet (Miralax) primidone 50 mg tablet 50 mg PO TID 08/17/23 08/17/23 History venlafaxine 75 mg capsule,extended 75 mg PO DAILY 08/17/23 08/17/23 History release 24 hr amlodipine 5 mg tablet (Norvasc) 5 mg PO QAM #30 tabs 08/25/23 Rx cefdinir 300 mg capsule 300 mg PO BID #10 caps 08/25/23 Rx pantoprazole 40 mg tablet,delayed 40 mg PO DAILY 4 weeks #28 tabs 08/25/23 Rx release (Protonix) Hospital Stay Data Consultations 08/17/23 21:08 ED Decision to Admit Stat 08/18/23 08:00 Consult Orthopedic Spine Surgery Routine Diagnostic Imagining Performed 08/17/23 17:53 CT abd pelvis wo con Stat CT cervical spine wo con Stat CT chest diagnostic wo con Stat CT head/brain wo con Stat 08/18/23 06:14 CT lumbar spine wo con Urgent Pending Results Patient Have Any Pending Studies at Discharge: No Discharge Instructions Given to Patient (Per Discharging Provider) MEDICATION CHANGES: Cefdinir 300mg by mouth twice daily x 5 days for UTI. Continue amlodipine 5mg daily for blood pressure. Continue pantoprazole 40mg daily for dyspepsia. SUMMARY OF TEST RESULTS: You were admitted to hospital secondary to fall and generalized weakness. Imaging studies shows L1 compression fracture age indeterminate. Per ortho spine evaluation, no lifting more than 5lbs, body habitus makes bracing difficult but could be option if no improvement A urine culture revealed you have a UTI. You will finish additional 5 days of antibiotics. You are being discharged to [facility] rehab per PT/OT therapy recommendations. PENDING TEST RESULTS: None RECOMMENDATIONS FOR FOLLOW-UP: Follow up with PCP as scheduled. Complete antibiotic in its entirety. Continue medication regimen as scheduled aside from changes noted above. OTHER INSTRUCTIONS: Seek medical attention if you have: * temperature above 101 * chest pain or trouble breathing * abdominal pain, nausea, vomiting * diarrhea, dark stools or bloody stools * any unanswered questions or concerns Call 911 if symptoms are severe. Please take good care of yourself. Call if you have any questions or problems. You can reach a [facility] hospitalist on duty at [facility] 24 hours a day by calling [phone]. Total Time Total Time Spent Total Time Spent (In Minutes): 40 minutes Supervising Physician Co-Signing Physician Notes Attending addendum; The patient was seen and examined in medical floor She has been feeling much better and denies any symptoms She will be discharged to [facility] this afternoon On examination Sitting on bed without any acute distress Hemodynamically stable Chest-clear to auscultate bilaterally Heart-S1-S2, regular Abdomen-benign Extremities-trace edema bilaterally Her labs, medications and imaging studies reviewed Ambulatory dysfunction with fall, acute L1 vertebral compression fracture, UTI managed appropriately Agree with assessment and plan as outlined above by MARILEE Mei Dr
== END 2023-08-25 15:03 | DRG 543 ==
LOC: ED 17:36 → EDINP 21:39 → SUATTDRO 21:39 → 3N 22:23